=== PATIENT | female | born 1980 | race African-American/Black ===

== ENCOUNTER 2020-04-05 11:04 | Emergency (ER) | payer BC, SELFPAY ==
--- NOTE | ~2020-04-05 | CT_ITS ---
EXAMINATION: CT abdomen pelvis w con DATE: 04/05/2020 13:48 INDICATION: Nausea, vomiting and constipation TECHNIQUE: Computed tomography (CT) of the abdomen and pelvis was performed with 100 mL Omnipaque-350 intravenous contrast. Automated exposure control and iterative reconstruction technique were employe d. The dose-length product was 336.22 mGy-cm. COMPARISON: None FINDINGS: Lung bases are clear. Heart size is normal. No pericardial or pleural effusion. Edematous wall thicke belen the distal esophagus which may be related to esophagitis given the provided history of nausea an d vomiting. Liver, gallbladder, spleen, pancreas, bilateral adrenal glands and kidneys are normal. Ascencion wels including the appendix are normal. Anteverted uterus and decompressed bladder are unremarkable. Prominent peripheral enhancement a partially decompressed 1.9 cm corpus luteum cyst at the left adnex a. Minimal likely physiologic free fluid in the pelvis. No pathologically enlarged abdominal or pelvi c lymphadenopathy. Bones are unremarkable. IMPRESSION: 1. Mild edematous wall thickening at the distal esophagus which could represent mild esophagitis rela sandra to given history of nausea and vomiting. 2. Partially collapsed corpus luteum cyst at the left adnexa with small amount of likely physiologic free fluid in the pelvis. Reviewed, dictated and finalized at location B. [employer] IMPRESSION: 1. Mild edematous wall thickening at the distal esophagus which could represent mild esophagitis related to given history of nausea and vomiting. 2. Partially collapsed corpus luteum cyst at the left adnexa with small amount of likely physiologic free fluid in the pelvis.
[2020-04-05 11:37] VITALS: BP 121/91; PULSE 120; RESP 18; TEMP 37.1; O2SAT 100
[2020-04-05 11:55] LABS: Basophils Absolute Auto 0.1 K/mm3 (0.0-0.1); Basophils Percent Auto 0.9 % (0.2-1.2); Eosinophils Absolute Auto 0.5 K/mm3 (0-0.3); Eosinophils Percent Auto 4.8 % (0-4.4); Hemoglobin 15.3 g/dL (12.0-15.0); Immature Granulocyte Absolute 0.03 K/mm3 (0.00-0.031); Immature Granulocyte Percent A 0.3 % (0-0.5); Lymphocytes Absolute Auto 3.56 K/mm3 (0.9-3.2); Mean Corpuscular HGB Conc 35.6 g/dl (32-36); Mean Corpuscular Hemoglobin 27.5 pg (26-34); Mean Corpuscular Volume 77.3 fl (80-100); Mean Platelet Volume 10.2 fl (7.4-10.4); Monocytes Absolute Auto 0.7 K/mm3 (0.1-0.6); Monocytes Percent Auto 6.6 % (2.6-8.5); Neutrophils Absolute Auto 5.6 K/mm3 (1.3-6.7); Neutrophils Percent Auto 53.4 % (45.5-73.1); Platelet Count Result 337 k/mm3 (150-375); Red Blood Count 5.56 M/mm3 (4.2-5.4); Red Cell Distribution Width 14.4 % (11.5-14.5); White Blood Count 10.5 K/mm3 (4.5-10.0)
[2020-04-05 12:02] LABS: Alanine Aminotransferase 21 U/L (4-35); Albumin Level 4.7 g/dL (3.5-5.1); Alkaline Phosphatase 84 U/L (38-126); Anion Gap 12 mmol/L (8-16); Aspartate Amino Transferase 26 U/L (14-36); Bilirubin,Total 1.3 mg/dL (0.2-1.3); Blood Urea Nitrogen 12 mg/dL (7-17); Calcium 9.3 mg/dL (8.4-10.2); Carbon Dioxide 27 mmol/L (22-30); Chloride 92 mmol/L (98-107); Estimated CRCL calculation 78 ml/min; Estimated Glomerular Filt Rate > 60; Glucose 302 mg/dL (65-105); Lipase 49 U/L (23-300); Potassium 3.9 mmol/L (3.4-5.0); Sodium 131 mmol/L (137-145)
[2020-04-05 12:12] LABS: Add Urine Microscopic? YES; Appearance Urine Cloudy (Clear); Bacteria Urine Trace /hpf; Bilirubin Urine Negative (Negative); Blood Urine Negative (Negative); Color Urine Yellow (Yellow); Glucose Urine UA 2+ mg/dL (Negative); Ketones Urine 2+ mg/dL (Negative); Leukocyte Esterase Ur Negative LEU/UL (Negative); Mucus Urine Few /lpf; Nitrate Urine Positive (Negative); Protein Urine 2+ mg/dL (Negative); RBC Urine 0-2 /hpf (0-2); Specific Grav Ur 1.027 (1.001-1.035); Squamous Epithelial Cell Urine Moderate /hpf (Few); Urobilinogen Urine Negative mg/dL (<2.0)
--- NOTE | 2020-04-05 13:24 | ED.NAVMDI ---
HPI - Nausea/Vomiting/Diarrhea General Chief complaint: Nausea/Vomiting/Diarrhea Stated complaint: n/v, abd pain 7 days Time Seen by Provider: 04/05/20 12:49 Source: patient Mode of arrival: ambulatory Limitations: no limitations History of Present Illness HPI Narrative: This is a 39-year-old female that presents the emergency department for nausea and vomiting x1 week. Associated with constipation. Reports she has not been able to keep anything down. Denies fever, diarrhea, dysuria, or hematuria. Related Data Home Medications Medication Instructions Recorded Confirmed glipizide 10 mg PO BID 04/05/20 04/05/20 Allergies Allergy/AdvReac Type Severity Reaction Status Date / Time No Known Allergies Allergy Verified 04/05/20 11:39 Review of Systems Review of Systems: Narrative: CONSTITUTIONAL: Denies fever GASTROINTESTINAL: Reports abdominal pain, nausea, vomiting. Denies diarrhea. GENITOURINARY: Denies dysuria or hematuria. All systems reviewed & are unremarkable except as noted in HPI and below PMFSH Past Medical History Medical History (Updated 04/05/20 @ 16:01 by Radha Li PA-C) History of diabetes mellitus Social History Social History (Updated 04/05/20 @ 13:25 by Radha Li PA-C) Substance use: never Gender identity (if verbalized by the patient): Female Exam Narrative: Exam Narrative: GENERAL: Well-appearing, well-nourished, and in no acute distress. HEAD: Normocephalic, atraumatic. EYES: EOMI. ENT: Mucous membranes moist. Oropharynx without tonsillar hypertrophy exudate or other lesions. CHEST: Clear to auscultation. No respiratory distress. No wheezes rales or rhonchi HEART: Regular rate and rhythm. No murmur heard. Normal peripheral pulses. ABDOMEN: Soft, nontender, nondistended, normal active bowel sounds. No CVA tenderness EXTREMITIES: Normal range of motion. No edema. SKIN: Warm, dry, no rash. NEURO: No focal deficits. Alert and oriented x3. PSYCH: Normal mood and affect Course Vital Signs Vital signs: Vital Signs Temperature 98.7 F 04/05/20 11:37 Pulse Rate 120 H 04/05/20 11:37 Respiratory Rate 18 04/05/20 11:37 Blood Pressure 121/91 H 04/05/20 11:37 Pulse Oximetry 100 04/05/20 11:37 Temperature 98.7 F 04/05/20 11:37 Pulse Rate 120 H 04/05/20 11:37 Respiratory Rate 18 04/05/20 11:37 Blood Pressure 121/91 H 04/05/20 11:37 Pulse Oximetry 100 04/05/20 11:37 MDM - Nausea/Vomiting/Diarrhea MDM Narrative Medical decision making narrative: Patient presents the emergency department for nausea and vomiting x1 week. She is afebrile and nontoxic-appearing. Mildly tachycardic upon arrival, this normalized with IV fluid administration. CBC shows mild hemoconcentration. Metabolic panel with normal bicarb and no anion gap. Her blood sugar is 302. Lipase is normal. UA with evidence of possible infection. This will be sent for culture. Patient will be started on oral antibiotics. Bedside test is negative. CT scan of the abdomen and pelvis shows mild esophagitis and a 1.9cm left adnexal cyst. Patient hydrated in the ED and given antiemetic with relief. Able to tolerate p.o. challenge. Patient was updated on case findings. She is stable and felt appropriate for further outpatient evaluation. She was given warnings to return to the ER Lab Data Attestation: I reviewed the patient's lab results. Result diagrams: 04/05/20 11:45 04/05/20 11:45 Labs: Lab Results 04/05/20 04/05/20 04/05/20 Range/Units 11:45 11:45 11:54 WBC 10.5 H (4.5-10.0) K/mm3 RBC 5.56 H (4.2-5.4) M/mm3 Hgb 15.3 H (12.0-15.0) g/dL Hct 43.0 (37.0-47.0) % MCV 77.3 L (80-100) fl MCH 27.5 (26-34) pg MCHC 35.6 (32-36) g/dl RDW 14.4 (11.5-14.5) % Plt Count 337 (150-375) k/mm3 MPV 10.2 (7.4-10.4) fl Immature Gran % (Auto) 0.3 (0-0.5) % Neut % (Auto) 53.4 (45.5-73.1) % Lymph
[2020-04-05] MEDS: ONDANSETRON INJ 4 MG/2 ML VIAL IV PUSH (13:57)
[2020-04-05] MEDS: SODIUM CHLORIDE 0.9% IV 1,000 ML 999 ML IV CONT ×2 (13:58→14:47)
[2020-04-05 16:19] VITALS: BP 128/82; PULSE 90; RESP 12; O2SAT 99
== END 2020-04-05 16:15 | disposition home or self-care (01) ==
PROVIDERS: Emergency Medicine; Emergency Provider Emergency Medicine
DX: N30.00 Acute cystitis without hematuria (principal); K20.90 Esophagitis, unspecified without bleeding; E11.9 Type 2 diabetes mellitus without complications; Z79.84 Long term (current) use of oral hypoglycemic drugs
CPT/HCPCS: 36415; 74177; 80053; 81001; 81025; 83690; 85025; 87086; 96374; 99284; J2405; J7030; Q9967

== ENCOUNTER 2021-05-07 13:27 | Emergency (ER) | payer BC, SELFPAY ==
[2021-05-07 13:40] VITALS: BP 108/82; PULSE 130; RESP 20; TEMP 36.2; O2SAT 100
--- NOTE | 2021-05-07 14:21 | PC.NURSE ---
Called lab about Urine HCG. they will do it down there as the test ran in ER was defective
[2021-05-07 14:22] LABS: Basophils Absolute Auto 0.1 K/mm3 (0.0-0.1); Basophils Percent Auto 0.9 % (0.2-1.2); Eosinophils Absolute Auto 0.1 K/mm3 (0-0.3); Hematocrit 41.3 % (37.0-47.0); Hemoglobin 14.6 g/dL (12.0-15.0); Immature Granulocyte Absolute 0.04 K/mm3 (0.00-0.031); Immature Granulocyte Percent A 0.5 % (0-0.5); Lymphocytes Absolute Auto 2.96 K/mm3 (0.9-3.2); Lymphocytes Percent Auto 34.3 % (18.3-44.2); Mean Corpuscular HGB Conc 35.4 g/dl (32-36); Mean Corpuscular Hemoglobin 27.7 pg (26-34); Mean Corpuscular Volume 78.4 fl (80-100); Mean Platelet Volume 10.2 fl (7.4-10.4); Monocytes Absolute Auto 0.8 K/mm3 (0.1-0.6); Monocytes Percent Auto 9.5 % (2.6-8.5); Neutrophils Absolute Auto 4.6 K/mm3 (1.3-6.7); Neutrophils Percent Auto 53.8 % (45.5-73.1); Platelet Count Result 385 k/mm3 (150-375); Red Blood Count 5.27 M/mm3 (4.2-5.4); Red Cell Distribution Width 14.3 % (11.5-14.5); White Blood Count 8.6 K/mm3 (4.5-10.0)
[2021-05-07 14:33] LABS: Add Urine Microscopic? YES; Alanine Aminotransferase 19 U/L (4-35); Albumin Level 4.9 g/dL (3.5-5.1); Alkaline Phosphatase 82 U/L (38-126); Anion Gap 15 mmol/L (8-16); Appearance Urine Clear (Clear); Aspartate Amino Transferase 23 U/L (14-36); Bacteria Urine Trace /hpf; Bilirubin Urine Negative (Negative); Blood Urea Nitrogen 17 mg/dL (7-17); Blood Urine Negative (Negative); Calcium 9.2 mg/dL (8.4-10.2); Carbon Dioxide 28 mmol/L (22-30); Chloride 86 mmol/L (98-107); Color Urine Yellow (Yellow); Estimated CRCL calculation 78 ml/min; Estimated Glomerular Filt Rate > 60; Glucose 309 mg/dL (65-110); Glucose Urine UA 3+ mg/dL (Negative); Ketones Urine 2+ mg/dL (Negative); Leukocyte Esterase Ur Trace LEU/UL (Negative); Lipase 51 U/L (23-300); Mucus Urine Few /lpf; Nitrate Urine Negative (Negative); Potassium 3.7 mmol/L (3.4-5.0); Protein Urine 1+ mg/dL (Negative); Sodium 129 mmol/L (137-145); Specific Grav Ur 1.026 (1.001-1.035); Squamous Epithelial Cell Urine Few /hpf (Few); Urobilinogen Urine Negative mg/dL (<2.0); WBC Urine 51-75 /hpf
--- NOTE | 2021-05-07 14:45 | ED.NAVMDI ---
HPI - Nausea/Vomiting/Diarrhea General Chief complaint: Nausea/Vomiting/Diarrhea Stated complaint: n/v Time Seen by Provider: 05/07/21 14:34 History of Present Illness HPI Narrative: 40-year-old female with history of gastroparesis and type 2 diabetes presents to the emergency room with 1 week of vomiting. Denies abdominal pain diarrhea constipation. Unable to keep fluids down. Patient states that she has not taken her diabetes medications in 1 week. Patient also concerned she may have a urinary tract infection. Related Data Home Medications Medication Instructions Recorded Confirmed glipizide 10 mg PO BID 04/05/20 04/05/20 Allergies Allergy/AdvReac Type Severity Reaction Status Date / Time No Known Allergies Allergy Verified 04/05/20 11:39 Review of Systems Review of Systems: CONSTITUTIONAL: Denies fever, chills, or sweats. EYES: Denies visual changes, redness, or discharge. ENT: Denies rhinorrhea, congestion, sore throat, or otalgia. CARDIOVASCULAR: Denies chest pain, palpitations, or edema. RESPIRATORY: Denies cough or dyspnea. GASTROINTESTINAL: Reports vomiting GENITOURINARY: Denies dysuria or hematuria. SKIN: Denies rash or itching. MUSCULOSKELETAL: Denies back pain, joint pain, or myalgia. NEUROLOGIC: Denies headache, numbness, dizziness, or weakness. PSYCHIATRIC: Denies anxiety or depression. [facility] Past Medical History Medical History History of diabetes mellitus Social History Social History Substance use: never Gender identity (if verbalized by the patient): Female Exam Narrative: GENERAL: Appears ill. HEAD: Normocephalic, atraumatic. EYES: PERRLA and EOMI. ENT: Nares clear, no rhinorrhea or epistaxis. Mucous membranes dry. NECK: Supple. No adenopathy or masses. No carotid bruits or JVD CHEST: Clear to auscultation. No respiratory distress. No wheezes rales or rhonchi HEART: Regular rate and rhythm. No murmur heard. Normal peripheral pulses. ABDOMEN: Soft, nontender, nondistended, normal active bowel sounds. EXTREMITIES: Normal range of motion. No edema. SKIN: Warm, dry, no rash. NEURO: No focal deficits. Alert and oriented x3. PSYCH: Normal mood and affect. Course Vital Signs Vital signs: Vital Signs Temperature 36.2 C L 05/07/21 13:40 Pulse Rate 130 H 05/07/21 13:40 Respiratory Rate 20 05/07/21 13:40 Blood Pressure 108/82 05/07/21 13:40 Pulse Oximetry 100 05/07/21 13:40 Temperature 36.2 C L 05/07/21 13:40 Pulse Rate 141 H 05/07/21 15:10 Respiratory Rate 20 05/07/21 13:40 Blood Pressure 102/74 05/07/21 15:10 Pulse Oximetry 100 05/07/21 13:40 MDM - Nausea/Vomiting/Diarrhea MDM Narrative Medical decision making narrative: 40-year-old female presents emergency room with gastroparesis and dysuria. Patient given 2 L of fluid and 4 of Zofran for dehydration and nausea. Blood sugar was 309, gave patient 6 units of insulin. 1 hour later blood sugar was 251. Hyponatremia likely due to dehydration. Bacteria in urine. Give 1 g of Rocephin IV. Will send patient home on Zofran for nausea, and Keflex for urinary tract infection. Medical Records Attestation: I reviewed the patient's medical records. Lab Data Attestation: I reviewed the patient's lab results. Result diagrams: 05/07/21 14:09 05/07/21 14:09 Labs: Lab Results 05/07/21 05/07/21 05/07/21 Range/Units 14:09 14:09 14:09 WBC 8.6 (4.5-10.0) K/mm3 RBC 5.27 (4.2-5.4) M/mm3 Hgb 14.6 (12.0-15.0) g/dL Hct 41.3 (37.0-47.0) % MCV 78.4 L (80-100) fl MCH 27.7 (26-34) pg MCHC 35.4 (32-36) g/dl RDW 14.3 (11.5-14.5) % Plt Count 385 H (150-375) k/mm3 MPV 10.2 (7.4-10.4) fl Immature Gran % (Auto) 0.5 (0-0.5) % Neut % (Auto) 53.8 (45.5-73.1) % Lymph % (Auto) 34.3 (18.3-44.2) % [place] % (Auto) 9.5
[2021-05-07 15:00] VITALS: BP 130/100; PULSE 118
[2021-05-07 15:05] VITALS: BP 114/85; PULSE 124
[2021-05-07 15:10] VITALS: BP 102/74; PULSE 141
[2021-05-07 15:29] LABS: Pregnancy On Board Control Positive; Urine Pregnancy Test Negative
[2021-05-07] MEDS: ONDANSETRON INJ 4 MG/2 ML VIAL IV PUSH (15:31)
[2021-05-07] MEDS: SODIUM CHLORIDE 0.9% IV 1,000 ML 999 ML IV CONT ×2 (15:31→17:25)
[2021-05-07] MEDS: INSULIN HUMAN REGULAR (*BKC) 100 UNITS/ML 6 UNITS SUB-Q (16:52)
[2021-05-07 17:23] LABS: Glucose Point of Care 278 mg/dl (65-105)
[2021-05-07 17:59] LABS: Glucose Point of Care 258 mg/dl (65-105)
[2021-05-07 18:28] VITALS: BP 110/82; PULSE 104; RESP 16; TEMP 36.4; O2SAT 98
== END 2021-05-07 18:28 | disposition home or self-care (01) ==
PROVIDERS: Emergency Medicine; Emergency Provider Nurse Practitioner Family
DX: E11.43 Type 2 diabetes mellitus with diabetic autonomic (poly)neuropathy (principal); K31.84 Gastroparesis; E11.65 Type 2 diabetes mellitus with hyperglycemia; N39.0 Urinary tract infection, site not specified; Z79.84 Long term (current) use of oral hypoglycemic drugs
CPT/HCPCS: 36415; 80053; 81001; 81025; 82948; 83690; 85025; 87086; 87088; 96361; 96365; 96375; 99284; J0696; J1815; J2405; J7030

== ENCOUNTER 2021-08-17 09:54 | Emergency (ER) | payer BC, SELFPAY ==
[2021-08-17] VITALS (10 sets, daily range): BP systolic 137–169; BP diastolic 79–111; PULSE 103–124; RESP 14–18; TEMP 36.8; O2SAT 98–100
--- NOTE | ~2021-08-17 | XR_ITS ---
EXAMINATION: XR abdomen/kub 1V DATE: 08/17/2021 14:17 INDICATION: Vomiting. TECHNIQUE: A supine view of the abdomen on 2 radiographs was obtained. COMPARISON: CT abdomen and pelvis 04/05/2020 FINDINGS: There are no dilated loops of bowel. There is a paucity of stool in the colon. IMPRESSION: 1. Normal bowel gas pattern. Reviewed, dictated and finalized at location A.
[2021-08-17 10:19] LABS: Appearance Urine Clear (Clear); Bilirubin Urine Negative (Negative); Blood Urine Negative (Negative); Color Urine Yellow (Yellow); Glucose Urine UA Negative (Negative); Ketones Urine Negative (Negative); Leukocyte Esterase Ur Trace LEU/UL (Negative); Nitrate Urine Negative (Negative); Protein Urine 1+ mg/dL (Negative); Specific Grav Ur 1.015 (1.001-1.035); Urobilinogen Urine 0.2 mg/dL (<2.0); pH Urine 7.5 (5.0-9.0)
--- NOTE | 2021-08-17 10:23 | ED.NAVMDI ---
HPI - Nausea/Vomiting/Diarrhea General Chief complaint: Urogenital-Female Stated complaint: Nausea, UTI? Time Seen by Provider: 08/17/21 10:03 Source: patient Mode of arrival: ambulatory Limitations: no limitations History of Present Illness HPI Narrative: 40-year-old female presents today with complaints of nausea and dark urine. Patient was just discharged from [facility] yesterday. Patient has a history of gastroparesis. Patient was admitted to [facility] on Friday and discharged yesterday states when she was discharged was feeling better. Patient sent home on a liquid diet. Patient tolerating liquid diet until this morning. Patient denies dysuria, back pain, or urgency. Patient did take her Reglan at home 10 mg this morning without relief of the nausea. Patient denies any drug usage including marijuana, denies alcohol usage, and denies cigarette smoking. Related Data Home Medications Medication Instructions Recorded Confirmed glipizide 10 mg tablet 10 mg PO BID 04/05/20 04/05/20 Reglan 08/17/21 Allergies Allergy/AdvReac Type Severity Reaction Status Date / Time sulfamethoxazole Allergy Rash Verified 08/17/21 10:34 [From Bactrim] trimethoprim [From Bactrim] Allergy Rash Verified 08/17/21 10:34 Review of Systems Review of Systems: CONSTITUTIONAL: Chills and sweats. Denies fever. EYES: Denies visual changes, redness, or discharge. ENT: Denies rhinorrhea, congestion, sore throat, or otalgia. CARDIOVASCULAR: Denies chest pain, palpitations, or edema. RESPIRATORY: Denies cough or dyspnea. GASTROINTESTINAL: Denies abdominal pain, nausea, vomiting, or diarrhea. GENITOURINARY: Dark urine. Denies dysuria or hematuria. SKIN: Denies rash or itching. MUSCULOSKELETAL: Denies back pain, joint pain, or myalgia. NEUROLOGIC: Denies headache, numbness, dizziness, or weakness. PSYCHIATRIC: Denies anxiety or depression. PMFSH Past Medical History Medical History History of diabetes mellitus Social History Social History Substance use: never Gender identity (if verbalized by the patient): Female Exam Narrative: GENERAL: Well-appearing, well-nourished, and in no acute distress. HEAD: Normocephalic, atraumatic. EYES: PERRLA and EOMI. ENT: Nares clear, no rhinorrhea or epistaxis. Mucous membranes moist. Oropharynx without tonsillar hypertrophy exudate or other lesions. Bilateral TMs pearly brown nonbulging NECK: Supple. No adenopathy or masses. No carotid bruits or JVD CHEST: Clear to auscultation. No respiratory distress. No wheezes rales or rhonchi HEART: Regular rate and rhythm. No murmur heard. Normal peripheral pulses. ABDOMEN: Soft, nontender, nondistended, normal active bowel sounds. EXTREMITIES: Normal range of motion. No edema. SKIN: Warm, dry, no rash. NEURO: No focal deficits. Alert and oriented x3. PSYCH: Normal mood and affect. Course Course Emergency Course: Reviewed labs with patient. Patient to to stay away from all forms of THC. Instructed to use Reglan as needed and to return with any new or worsening symptoms. Reevaluation(s) Reevaluation #1: Patient felling better but still with some nausea Date: 08/17/21 Time: 11:11 Reevaluation #2: Patient with improvement after second dose of Zofran, Benadryl, and dose of Haldol, and second IV fluid. Patient tolerating liquids and able to be discharged. Vital Signs Vital signs: Vital Signs Temperature 36.8 C 08/17/21 10:17 Pulse Rate 124 H 08/17/21 10:17 Respiratory Rate 16 08/17/21 10:17 Blood Pressure 150/107 H 08/17/21 10:17 Pulse Oximetry 100 08/17/21 10:17 Oxygen Delivery Room Air 08/17/21 10:17 Temperature 36.8 C 08/17/21 10:17 Pulse Rate 103 H 08/17/21 16:02 Respiratory Rate 18 08/17/21 16:02 Blood Pressure 143/93 H 08/17/21 16:02 Pulse Oximetry 100 08/17/21 16:02 Oxygen Delivery Room
[2021-08-17] MEDS: SODIUM CHLORIDE 0.9% IV 1,000 ML 999 ML IV CONT ×2 (10:36→14:10)
[2021-08-17] MEDS: METOCLOPRAMIDE HCL INJ 10 MG/2 ML VIAL IV PUSH (10:37)
[2021-08-17 10:40] LABS: Mucus Urine Rare /lpf; RBC Urine 0-2 /hpf (0-2); Squamous Epithelial Cell Urine Rare /hpf (Few); WBC Urine 0-3 /hpf
[2021-08-17 10:45] LABS: Basophils Absolute Auto 0.1 K/mm3 (0.0-0.1); Basophils Percent Auto 0.6 % (0.2-1.2); Eosinophils Percent Auto 0.1 % (0-4.4); Hematocrit 36.7 % (37.0-47.0); Hemoglobin 12.7 g/dL (12.0-15.0); Immature Granulocyte Absolute 0.03 K/mm3 (0.00-0.031); Immature Granulocyte Percent A 0.3 % (0-0.5); Lymphocytes Absolute Auto 1.91 K/mm3 (0.9-3.2); Lymphocytes Percent Auto 21.2 % (18.3-44.2); Mean Corpuscular HGB Conc 34.6 g/dl (32-36); Mean Corpuscular Hemoglobin 27.1 pg (26-34); Mean Corpuscular Volume 78.4 fl (80-100); Mean Platelet Volume 9.5 fl (7.4-10.4); Monocytes Absolute Auto 0.5 K/mm3 (0.1-0.6); Monocytes Percent Auto 5.8 % (2.6-8.5); Neutrophils Absolute Auto 6.5 K/mm3 (1.3-6.7); Platelet Count Result 432 k/mm3 (150-375); Red Blood Count 4.68 M/mm3 (4.2-5.4); Red Cell Distribution Width 16.2 % (11.5-14.5)
[2021-08-17 10:54] LABS: Pregnancy On Board Control Positive; Urine Pregnancy Test Negative
[2021-08-17 11:00] LABS: Alanine Aminotransferase 24 U/L (6-35); Albumin Level 5.1 g/dL (3.5-5.1); Anion Gap 15 mmol/L (8-16); Aspartate Amino Transferase 32 U/L (14-36); Bilirubin,Total 1.1 mg/dL (0.2-1.3); Blood Urea Nitrogen 12 mg/dL (7-17); Calcium 8.5 mg/dL (8.4-10.2); Carbon Dioxide 19 mmol/L (22-30); Chloride 101 mmol/L (98-107); Estimated CRCL calculation 90 ml/min; Estimated Glomerular Filt Rate > 60; Glucose 243 mg/dL (65-110); Potassium 3.6 mmol/L (3.4-5.0); Sodium 135 mmol/L (137-145)
[2021-08-17 11:11] LABS: Add Urine Microscopic? YES
[2021-08-17 11:15] LABS: Alkaline Phosphatase 74 U/L (38-126)
[2021-08-17] MEDS: ONDANSETRON INJ 4 MG/2 ML VIAL IV PUSH ×2 (11:21→14:10)
[2021-08-17 12:17] LABS: SARS-CoV-2 RNA PCR Negative
[2021-08-17] MEDS: diphenhydrAMINE HCl INJ 50 MG/ML VIAL 25 MG IV PUSH (14:10)
[2021-08-17] MEDS: PANTOPRAZOLE SODIUM IV 40 MG VIAL IV PUSH (14:10)
--- NOTE | 2021-08-17 14:13 | PC.NURSE ---
pt taken to x ray at this time
--- NOTE | 2021-08-17 14:41 | PC.NURSE ---
[facility]
[2021-08-17 15:04] LABS: Amphetamine Screen Urine Negative (Negative); Barbiturate Screen Urine Negative (Negative); Benzodiazepines Screen Urine Negative (Negative); Cannabinoid Screen Urine Positive (Negative); Cocaine Screen Urine Negative (Negative); Methadone Screen Urine Negative (Negative); Opiate Screen Urine Negative (Negative); Phencyclidine Screen Urine Negative (Negative)
[2021-08-17] MEDS: HALOPERIDOL LACTATE 5 MG/ML VIAL 2.5 MG IV PUSH (15:26)
== END 2021-08-17 16:08 | disposition home or self-care (01) ==
PROVIDERS: Emergency Provider Nurse Practitioner Family
DX: R11.2 Nausea with vomiting, unspecified (principal); F12.90 Cannabis use, unspecified, uncomplicated; E11.43 Type 2 diabetes mellitus with diabetic autonomic (poly)neuropathy; K31.84 Gastroparesis; Z20.822 Contact with and (suspected) exposure to COVID-19; Z79.84 Long term (current) use of oral hypoglycemic drugs
CPT/HCPCS: 36415; 74018; 80053; 80307; 81001; 81025; 85025; 96361; 96374; 96375; 96376; 99284; C9113; C9803; J1200; J1630; J2405; J2765; J7030; U0003; U0005

== ENCOUNTER 2022-02-04 17:08 | Emergency (ER) | payer BC, SELFPAY ==
[2022-02-04 17:43] VITALS: BP 126/95; PULSE 128; RESP 18; TEMP 36.6; O2SAT 100
[2022-02-04 18:20] LABS: Basophils Absolute Auto 0.1 K/mm3 (0.0-0.1); Basophils Percent Auto 0.6 % (0.2-1.2); Eosinophils Percent Auto 0.2 % (0-4.4); Hematocrit 40.7 % (37.0-47.0); Hemoglobin 14.4 g/dL (12.0-15.0); Immature Granulocyte Absolute 0.02 K/mm3 (0.00-0.031); Immature Granulocyte Percent A 0.2 % (0-0.5); Lymphocytes Absolute Auto 3.01 K/mm3 (0.9-3.2); Lymphocytes Percent Auto 28.8 % (18.3-44.2); Mean Corpuscular HGB Conc 35.4 g/dl (32-36); Mean Corpuscular Hemoglobin 27.1 pg (26-34); Mean Corpuscular Volume 76.5 fl (80-100); Mean Platelet Volume 9.7 fl (7.4-10.4); Monocytes Absolute Auto 0.6 K/mm3 (0.1-0.6); Monocytes Percent Auto 5.8 % (2.6-8.5); Neutrophils Absolute Auto 6.7 K/mm3 (1.3-6.7); Neutrophils Percent Auto 64.4 % (45.5-73.1); Platelet Count Result 431 k/mm3 (150-375); Red Blood Count 5.32 M/mm3 (4.2-5.4); Red Cell Distribution Width 15.1 % (11.5-14.5); White Blood Count 10.5 K/mm3 (4.5-10.0)
[2022-02-04 18:28] LABS: Appearance Urine Clear (Clear); Bilirubin Urine 1+ (Negative); Blood Urine Trace-lysed (Negative); Color Urine Yellow (Yellow); Glucose Urine UA Trace mg/dL (Negative); Ketones Urine 4+ mg/dL (Negative); Leukocyte Esterase Ur Negative LEU/UL (Negative); Nitrate Urine Negative (Negative); Protein Urine 2+ mg/dL (Negative); Specific Grav Ur >= 1.030 (1.001-1.035); Urobilinogen Urine 0.2 mg/dL (<2.0)
[2022-02-04 18:29] LABS: Alanine Aminotransferase 33 U/L (6-35); Albumin Level 5.2 g/dL (3.5-5.1); Alkaline Phosphatase 88 U/L (38-126); Anion Gap 19 mmol/L (8-16); Aspartate Amino Transferase 38 U/L (14-36); Bilirubin,Total 1.1 mg/dL (0.2-1.3); Blood Urea Nitrogen 13 mg/dL (7-17); Calcium 8.9 mg/dL (8.4-10.2); Carbon Dioxide 23 mmol/L (22-30); Chloride 93 mmol/L (98-107); Estimated CRCL calculation 90 ml/min; Estimated Glomerular Filt Rate > 60; Glucose 319 mg/dL (65-110); Lipase 37 U/L (23-300); Potassium 4.1 mmol/L (3.4-5.0); Sodium 135 mmol/L (137-145)
[2022-02-04 18:31] LABS: Mucus Urine Rare /lpf; RBC Urine 0-2 /hpf (0-2); Squamous Epithelial Cell Urine Rare /hpf (Few); WBC Urine 0-3 /hpf
[2022-02-04 18:33] LABS: Add Urine Microscopic? YES
--- NOTE | 2022-02-04 23:29 | ED.NAVMDI ---
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 Patient states that she normally takes Reglan for vomiting but is currently out of her prescription. Patient was unable to follow-up with her PCP to get the Reglan refilled. Patient denies abdominal pain. Denies fever. Denies diarrhea. Related Data Home Medications Medication Instructions Recorded Confirmed glipizide 10 mg tablet 10 mg PO BID 04/05/20 04/05/20 Reglan 08/17/21 Allergies Allergy/AdvReac Type Severity Reaction Status Date / Time sulfamethoxazole Allergy Rash Verified 02/04/22 17:45 [From Bactrim] trimethoprim [From Bactrim] Allergy Rash Verified 02/04/22 17:45 Review of Systems Review of Systems: CONSTITUTIONAL: Denies fever, chills, or sweats. EYES: Denies visual changes, redness, or discharge. ENT: Denies rhinorrhea, congestion, sore throat, or otalgia. CARDIOVASCULAR: Denies chest pain, palpitations, or edema. RESPIRATORY: Denies cough or dyspnea. GASTROINTESTINAL: Reports nausea vomiting GENITOURINARY: Denies dysuria or hematuria. SKIN: Denies rash or itching. MUSCULOSKELETAL: Denies back pain, joint pain, or myalgia. NEUROLOGIC: Denies headache, numbness, dizziness, or weakness. PSYCHIATRIC: Denies anxiety or depression. [facility] Past Medical History Medical History History of diabetes mellitus Social History Social History Substance use: never Gender identity (if verbalized by the patient): Female Exam Narrative: GENERAL: ill-appearing, well-nourished, no physical limitations, and in no acute distress. HEAD: Normocephalic, atraumatic. EYES: Conjunctivae normal, PERRLA and EOMI. ENT: External nose normal, Nares clear, no rhinorrhea or epistaxis. Mucous membranes dry. HEART: Tachycardic and regular rhythm. No murmur heard. Normal peripheral pulses. ABDOMEN: Soft, nontender, nondistended, normal active bowel sounds. BACK: No CVA tenderness EXTREMITIES: Normal range of motion. No edema. No clubbing or cyanosis SKIN: Warm, dry, no rash. No noted wounds NEURO: No focal deficits. Alert and oriented x3. MAEW. CN's II-XI intact bilaterally, normal gait PSYCH: Cooperative. Normal mood and affect. Course Vital Signs Vital signs: Vital Signs Temperature 36.6 C 02/04/22 17:43 Pulse Rate 128 H 02/04/22 17:43 Respiratory Rate 18 02/04/22 17:43 Blood Pressure 126/95 H 02/04/22 17:43 Pulse Oximetry 100 02/04/22 17:43 Temperature 36.6 C 02/04/22 17:43 Pulse Rate 115 H 02/05/22 00:43 Respiratory Rate 18 02/04/22 17:43 Blood Pressure 116/104 H 02/05/22 00:43 Pulse Oximetry 100 02/04/22 17:43 MDM - Nausea/Vomiting/Diarrhea Lab Data Result diagrams: 02/04/22 18:11 02/05/22 01:56 Labs: Lab Results 02/04/22 02/04/22 02/04/22 Range/Units 18:11 18:11 18:17 WBC 10.5 H (4.5-10.0) K/mm3 RBC 5.32 (4.2-5.4) M/mm3 Hgb 14.4 (12.0-15.0) g/dL Hct 40.7 (37.0-47.0) % MCV 76.5 L (80-100) fl MCH 27.1 (26-34) pg MCHC 35.4 (32-36) g/dl RDW 15.1 H (11.5-14.5) % Plt Count 431 H (150-375) k/mm3 MPV 9.7 (7.4-10.4) fl Immature Gran % (Auto) 0.2 (0-0.5) % Neut % (Auto) 64.4 (45.5-73.1) % Lymph % (Auto) 28.8 (18.3-44.2) % [place] % (Auto) 5.8 (2.6-8.5) % Eos % (Auto) 0.2 (0-4.4) % Baso % (Auto) 0.6 (0.2-1.2) % Lymph # (Auto) 3.01 (0.9-3.2) K/mm3 [place] # (Auto) 0.6 (0.1-0.6) K/mm3 Eos # (Auto) 0.0 (0-0.3) K/mm3 Baso # (Auto) 0.1 (0.0-0.1) K/mm3 Abs Immat Gran (auto) 0.02 (0.00-0.031) K/mm3 A
[2022-02-05] VITALS (21 sets, daily range): BP systolic 116–167; BP diastolic 100–111; PULSE 95–127; RESP 18; TEMP 36.2; O2SAT 95–100
[2022-02-05] MEDS: diphenhydrAMINE HCl INJ 50 MG/ML VIAL 25 MG IV PUSH (00:29)
[2022-02-05] MEDS: SODIUM CHLORIDE 0.9% IV 1,000 ML 999 ML IV CONT ×2 (00:30)
[2022-02-05 00:39] LABS: Barbiturate Screen Urine Negative (Negative); Benzodiazepines Screen Urine Negative (Negative)
[2022-02-05 00:47] LABS: Amphetamine Screen Urine Negative (Negative); Cannabinoid Screen Urine Positive (Negative); Opiate Screen Urine Negative (Negative); Phencyclidine Screen Urine Negative (Negative)
[2022-02-05] MEDS: METOCLOPRAMIDE HCL INJ 10 MG/2 ML VIAL IV PUSH (01:07)
[2022-02-05 01:28] LABS: Cocaine Screen Urine Negative (Negative); Methadone Screen Urine Negative (Negative)
[2022-02-05 02:16] LABS: Anion Gap 15 mmol/L (8-16); Blood Urea Nitrogen 14 mg/dL (7-17); Calcium 7.7 mg/dL (8.4-10.2); Carbon Dioxide 20 mmol/L (22-30); Chloride 99 mmol/L (98-107); Estimated CRCL calculation 90 ml/min; Estimated Glomerular Filt Rate > 60; Glucose 293 mg/dL (65-110); Potassium 3.7 mmol/L (3.4-5.0); Sodium 134 mmol/L (137-145)
--- NOTE | 2022-02-17 05:01 | PC.NURSE ---
Late Entry: NS 1000ml infused/completed on 02/05 at 0021hrs. NS 1000ml infused/completed on 02/05 at 0024hrs
== END 2022-02-05 02:49 | disposition home or self-care (01) ==
PROVIDERS: Family Medicine; Emergency Provider Nurse Practitioner Family
DX: R11.2 Nausea with vomiting, unspecified (principal); K31.84 Gastroparesis; F12.90 Cannabis use, unspecified, uncomplicated; E11.9 Type 2 diabetes mellitus without complications; Z79.84 Long term (current) use of oral hypoglycemic drugs
CPT/HCPCS: 36415; 80048; 80053; 80307; 81001; 81025; 83690; 85025; 96361; 96374; 96375; 99284; J1200; J2765; J7030

== ENCOUNTER 2024-04-30 11:02 | Emergency (ER) | payer BC, SELFPAY ==
[2024-04-30] VITALS (10 sets, daily range): BP systolic 116–135; BP diastolic 72–107; PULSE 93–115; RESP 13–18; TEMP 36.6–36.7; O2SAT 98–100
--- NOTE | ~2024-04-30 | CT_ITS ---
EXAMINATION: CT abdomen pelvis w con DATE: 04/30/2024 21:47 INDICATION: Low abdominal pain. Nausea, vomiting, and diarrhea. TECHNIQUE: Computed tomography (CT) of the abdomen and pelvis was performed with 100 mL Omnipaque 350 intravenous contrast. Automated exposure control and iterative reconstruction technique were employe d. The dose-length product was 679.48 mGy-cm. COMPARISON: CT abdomen and pelvis 04/05/2020 FINDINGS: The visualized portions of the lung bases demonstrate mild atelectasis. No pleural effusion . The heart size is normal. No pericardial effusion. The liver, spleen, pancreas, and adrenal glands are normal. The gallbladder is absent. There is cortical thinning of the kidneys. There is a 7 mm cys t in right kidney. There are 4.0 cm and 1.3 cm uterine fibroids. The appendix is normal. There are no dilated loops of bowel. There are no pathologically enlarged lymph nodes. There is no free intraperi toneal fluid. There is mild thoracic spondylosis. IMPRESSION: 1. Uterine fibroids. Reviewed, dictated and finalized at location A. ATIONS SUPERINTENDENT IMPRESSION: 1. Uterine fibroids.
--- OUTSIDE RECORDS SUMMARY | 2024-04-30 11:34 | XMS_ITS | Referral Summary ---
Author Organization [facility] Address [address] [place] [address] Care Team Providers Care Motor Vehicle Lecturer Name Role Phone Macy Contreras MD Primary Care Provider [phone] Source Comments [facility],non-owned Affiliates and Associated Physician Practices is amultiple site organization consisting of ambulatory clinics and hospital sitesin [place], [place], [place] and [place]. This disclosure is being madepursuant to the Care Everywhere program and may not contain all information available regarding this patient. Last updated 17.[facility] Allergies Active Allergy Reactions Criticality Noted Date Comments Sulfamethoxazole W-Trimethoprim Urticaria,Itching Medium 05/01/2016 Medications * Be aware that medications may not be up to date on this document. Alwaysverify current medications with the patient. Medication Sig Dispensed Refills Start Date End Date Status glipiZIDE (GLUCOTROL) 10 MG tablet Take 1 (one) tablet by mouth 2 times daily with morning and evening meal 05/21/2021 Active insulin glargine-yfgn (Semglee, yfgn,) pen Inject 20 (twenty) Units subcutaneously at bedtime 18 mL 2 12/02/2022 Active insulin pen needle (Novofine) 32G X 6 MM MISCIndications:Di abetic ketoacidosis without coma associated with type 1 diabetes mellitus (HCC),Type 2 diabetes mellitus with ketoacidosis without coma, without long-term current use of insulin (HCC) 1 (one) Each by Injection route once daily 100 Each 2 12/02/2022 Active Additional Information Patient not taking.Reported on 03/20/2023 Blood Glucose Monitoring Suppl (Blood Glucose Monitor System) w/Device KITIndications:Karolyn betic ketoacidosis without coma associated with type 1 diabetes mellitus (HCC),Type 2 diabetes mellitus with ketoacidosis without coma, without long-term current use of insulin (HCC) Use 1 Each as directed 1 Each 12/02/2022 Active lancetsIndications :Diabetic ketoacidosis without coma associated with type 1 diabetes mellitus (HCC),Type 2 diabetes mellitus with ketoacidosis without coma, without long-term current use of insulin (HCC) Use 1 (one) Each once daily 100 Each 3 12/02/2022 Active metoclopramide (Reglan) 10 MG tablet Take 1 (one) tablet by mouth 3 times daily before meals 90 tablet 12/02/2022 Active pantoprazole EC (Protonix) 40 MG tablet Take 1 (one) tablet by mouth once daily 30 tablet 03/20/2023 Active Active Problems Problem Noted Date Diagnosed Date 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 Nausea and vomiting, unspecified vomiting type 0 03/19/2023 Hyponatremia 11/28/2022 Tachycardia 11/28/2022 Diabetic ketoacidosis withou t coma associated with type 1 diabetes mellitus 11/28/2022 Chronic cholecystitis 09/13/2021 Biliary dyskinesia 09/05/2021 Nausea without vomiting 08/14/2021 Hyperglycemia 05/12/2020 Intractable vomiting 05/12/2020 Subserous leiomyoma of uterus 12/09/2019 Right ovarian without intrauterine pre gnancy 12/09/2019 Social History Tobacco Use Types Packs/Day Years Used Date Smoking Tobacco: Every Day Cigarettes Smokeless Tobacco: Never Tobacco Cessation:Ready to Q uit: Not Asked; Counseling Given: Not Answered Alcohol Use Standard Drinks/Week Comments No 0 (1 standard drink = 0.6 oz pur e alcohol) AUDIT-C Answer Date Recorded Q1: How often do you have a drink containing alc ohol? Never 08/15/2021 Average Number of Drinks Not on file 022 Frequency of Binge Drinking Not on file 10/2021 Hunger Vital Sign Answer Date Recorded Within the past 12 months, y ou worried that your food would run out before you got the money to buy more. Never true 08/17/19 22 Within the past 12 months, t he food you bought just didn't last and you didn't have money to get more. Never true 08/16/2021 Sex and Gender Information Value Date Recorded Sex Assigned at Not on file Gender Identity Not on file Sexual Orientation Not on file Last Filed Vital Signs Vital Sign Reading Time Taken Comments Blood Pressure 124/81 03/20/2023 7:31 AM [facility] Pulse 97 03/20/2023 7:31 AM [facility] Temperature 36.3 C (97.3 F) 03/20/2023 7:31 AM [facility] Respiratory Rate 18 03/20/2023 7:31 AM [facility] Oxygen Saturation 99% 03/20/2023 7:31 AM [facility] Inhaled Oxygen Concentration - - Weight 83.9 kg (185 lb) 03/20/2023 1:08 AM [facility] Height 160 cm (5' 3 ) 03/20/2023 1:08 AM [facility] Body Mass Index 32.77 03/20/2023 1:08 AM [facility]ELITE [facility]DER Functional Status Functional Status Response Date of Assess ment Is person deaf or have serious hearing difficult y? No 12/01/2022 Is person blind or have serious difficulty seein g? No 12/01/2022 Does person have serious dif ficulty walking/climbing stairs? No 12/01/2022 Does person have difficulty dressing/bathing? No 12/01/2022 Does person have difficulty doing errands alone? No 12/01/2022 Cognitive Status Response Date of Assessm ent Does person have difficulty concentrating/remembering/making decisions? 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) BASIC METABOLIC PANEL (CALCIUM TOTAL) STAT 03/20/2023 4:21 AM [facility] Nausea and vomiting, unspecified vomiting type MAMMO BILAT SCREENING W TRISTEN Routine 04/10/2021 9:23 AM [facility] Breast screening PAP IG LB+CT+NG+TV+HPV APTIMA RFLX 16,18/45 Routine 12/08/2019 4:03 PM CDT Positive test (HCC) from Last 3 Months or Most Recently Relevant to Health Maintenance Results * (ABNORMAL) HEMOGLOBIN A1C (03/20/2023 10:46 AM [facility]) Hemoglobin A1c 7.3(H) <5.7 % 03/20/2023 10:59 AM [facility] Estimated Average Glucose 163 mg/dL 03/20/2023 10:59 AM [facility] Blood BLOOD SPECIMEN / Unknown Venipuncture / Unknown 03/20/2023 10:46 AM [facility] 03/20/2023 10:49 AM [facility] Narrative [facility] - 03/20/2023 10:59 AM [facility] HbA1c Interpretation: Normal: < 5.7% Pre-diabetes: 5.7-6.4% Diabetes: Equal to or greater than 6.5% Test results diagnostic of diabetes should be repeated for confirmation. Treatment target values recommended by ADA and other clinical organizations should be used to evaluate metabolic control in patients. This test should not replace glucose testing for patients with Type 1 diabetes, pediatric patients, or women. Falsely low HbA1c results may be observed in patients with clinical conditions that shorten erythrocyte life span or decrease mean erythrocyte age such as the presence of unstable hemoglobin variants, elevated hemoglobin F level or other causes of hemolytic anemia. HbA1c may not accurately reflect glycemic control when clinical conditions that affect erythrocyte survival are present. Severe Iron deficiency anemia may yield falsely high results. Hemoglobin A1c assay should not be used to diagnose or monitor diabetes in patients with malignancy, recent blood transfusion, chronic kidney or liver disease. This method may yield falsely low results when hemoglobin (HbF) exceeds 5% in the specimen. The [employer]ellon Alinity assay for the measurement of HbA1c is a National Glycohemoglobin Standardization Program (NGSP) certified method. Kirby Fernández MD LAB - CHEMISTRY ORDERABLES [facility] [address] [place] [address] * (ABNORMAL) BASIC METABOLIC PANEL (CALCIUM TOTAL) (03/20/2023 4:21 AM [facility]) Glucose 208(H) 70 - 105 mg/dL 03/20/2023 4:57 AM [facility] Sodium 135(L) 136 - 145 mmol/L 03/20/2023 4:57 AM [facility] Potassium 3.5 3.5 - 5.1 mmol/L 03/20/2023 4:57 AM [facility] Chloride 106 98 - 107 mmol/L 03/20/2023 4:57 AM [facility] CO2 16(L) 22 - 29 mmol/L 03/20/2023 4:57 AM [facility] Calcium 8.3(L) 8.4 - 10.4 mg/dL 03/20/2023 4:57 AM [facility] Anion Gap 13 6 - 16 mmol/L 03/20/2023 4:57 AM [facility] BUN 8 5.3 - 18.7 mg/dL 03/20/2023 4:57 AM [facility] Creatinine 0.77 0.57 - 1.11 mg/dL 03/20/2023 4:57 AM [facility] eGFR by CKD-EPI >90 >=90 mL/min/1.7 3 m2 03/20/2023 4:57 AM [facility] Blood BLOOD SPECIMEN / Unknown Venipuncture / Unknown 03/20/2023 4:21 AM [facility] 03/20/2023 4:27 AM [facility] Rocio Rai MD [facility] Organization Address City/State/[facility] Co de Phone Number [facility] [address] [place] [address] * MAMMO BILAT SCREENING W TRISTEN (04/10/2021 9:23 AM [facility]) Anatomical Region Laterality Modality Breast Bilateral Mammography 04/10/2021 10:5 3 AM [facility] Impressions 04/10/2021 10:54 AM [facility] There is no mammographic evidence of malignancy. OVERALL FINAL ASSESSMENT: BI-RADS CATEGORY 1: NEGATIVE. Annual screening mammography is recommended. *Reading Radiologist: Mary Dougherty on 04/10/2021 at 10:54 AM Narrative 04/10/2021 10:54 AM [facility] EXAMINATION: BILATERAL DIGITAL SCREENING MAMMOGRAM AND BILATERAL BREAST TOMOSYNTHESIS HISTORY: Screening. COMPARISON: This is the patient's baseline mammogram. . TECHNIQUE: BILATERAL digital breast tomosynthesis (DBT) and synthetic 2D digital mammogram images were obtained (bilateral craniocaudal and mediolateral oblique projections) including computer aided detection (CAD.) BREAST PARENCHYMAL COMPOSITION:Category B: There are scattered areas of fibroglandular density. MAMMOGRAM FINDINGS: There are no suspicious masses, calcifications, or areas of architectural distortion in either breast. Jacklyn Galaviz DO MAMMO ORDERABLES * PAP IG LB+CT+NG+TV+HPV APTIMA RFLX 16,18/45 (12/08/2019 4:03 PM CDT) Diagnosis [facility] ACCOUNT BILL Comment: NEGATIVE FOR INTRAEPITHELIAL LESION OR MALIGNANCY. PREDOMINANCE OF COCCOBACILLI CONSISTENT WITH SHIFT IN VAGINAL KAROLINA IS PRESENT. Specimen Adequacy [facility] ACCOUNT BILL Comment:Satisfactory for myles luation. No endocervical component is identified. Clinician Provided ICD10 [facility] ACCOUNT BILL Comment: Z32.01 Z20.2 Performed by [facility] ACCOUNT BILL Comment:Ct Poon, Cytote chnologist (ASCP) Comment . [facility] ACCOUNT BILL Note [facility] ACCOUNT BILL Comment: The Pap smear is a screening test designed to aid in the detection of premalignant and malignant conditions of the uterine cervix. It is not a diagnostic procedure and should not be used as the sole means of detecting cervical cancer. Both false-positive and false-negative reports do occur. . IGLBP CPT Code Automation NOT NEEDED [facility] ACCOUNT BILL Comment: The Thin Prep(R) Production Control Planner was unable to read this specimen. Therefore a manual review was performed. Ancillary determined the test is not needed. Human papillomavirus Aptima Negative Negative [facility] ACCOUNT BILL Comment: This nucleic acid amplification test detects fourteen high-risk HPV types (16,18,31,33,35,39,45,51,52,56,58,59,66,68) without differentiation. Chlamydia trachomatis BHUMI Negative Negative [facility] ACCOUNT BILL GC BHUMI Negative Negative [facility] ACCOUNT BILL Trichomonas vaginalis by BHUMI Negative Negative [facility] ACCOUNT BILL PART OF UTERINE CERVIX / Unknown 12/08/2019 4:03 PM CDT 12/08/2019 Narrative [facility] ACCOUNT BILL - 12/10/2019 1:08 PM CDT Source.............Cervix;Endocervix No. of containers..01 ThinPrep Vial Resulting Agency Comment Lab Testing performed at: [facility] [place] [facility] [employer] [id number] Jacklyn Galaviz DO LAB - PATHOLOGY/CYTO LOGY ORDERABLES [facility] ACCOUNT BILL [address] [place] [address] from Last 3 Months or Most Recently Relevant to Health Maintenance Advance Directives * Full Code (Latest Code Status on File) Date Activated Date Inactivated Comments 03/19/2023 9:26 PM 03/20/2023 5:34 PM * Full Code Date Activated Date Inactivated Comments 11/28/2022 9:40 PM 12/02/2022 12:02 PM * Full Code Date Activated Date Inactivated Comments 08/14/2021 2:27 PM 08/16/2021 6:16 PM Care Teams Motor Vehicle Lecturer Relationship Specialty Start Date End Date Macy Contreras MD [address] [place] [address] PCP - General Internal Medicine 09/12/21
--- OUTSIDE RECORDS SUMMARY | 2024-04-30 11:34 | XMS_ITS | Clinical Summary ---
Author Organization [facility] [id number] [place] Address [address] [place] [id number] Care Team Providers Care Electronic Controls Repairer Supervisor Name Role Phone Kobi Martinez MD, Rory Irwin. Primary Care Provider + Allergies Active Allergy Reactions Criticality Noted Date Comments Sulfamethoxazole-Trimethop rim Hives,Itching,Nausea And Vomiting,Urticaria High 05/01/2016 Medications omeprazole (PriLOSEC) 40 mg capsule 07/28/2020 Active prochlorperazin e (COMPAZINE) 5 mg tablet TAKE 1 TABLET BY ORAL ROUTE EVERY 6 HOURS NEEDED FOR NAUSEA AND VOMITING 08/21/2020 Active glipiZIDE (GLUCOTROL) 10 mg tablet 09/03/2020 Active prochlorperazin e (COMPAZINE) 10 mg tablet Take 1 tablet (10 mg total) by mouth 2 (two) times a day as needed for nausea or vomiting 10 tablet 09/11/2020 Active metoclopramide (REGLAN) 10 mg tablet Take 1 tablet (10 mg total) by mouth every 6 (six) hours 30 tablet 03/17/2023 Active metoclopramide (REGLAN) 10 mg tablet Take 1 tablet (10 mg total) by mouth every 6 (six) hours 30 tablet 03/17/2023 Active Active Problems Problem Noted Date Diagnosed Date Nausea and vomiting 04/17/2020 Elevated blood-pressure read ing without diagnosis of hypertension 04/17/2020 Diverticulosis 04/17/2020 Surgical History Surgery Date Site/Laterality Comments ECTOPIC SURGERY ECTOPIC SURGERY Medical History Medical History Date Comments Diabetes mellitus (HCC) Family History Medical History Relation Name Comments Diabetes Brother Hypertension Brother Cancer Father Diabetes Father Hypertension Father Diabetes Mother Hypertension Mother Diabetes Sister Hypertension Sister Retinal detachment Sister Relation Name Status Comments Brother Father Mother Sister Social History Tobacco Use Types Packs/Day Years Used Date Smoking Tobacco: Never Smokeless Tobacco: Never Tobacco Cessation:Counseling Given: Not Answered Alcohol Use Standard Drinks/Week Comments Not Currently 0 (1 standard drink = 0.6 oz pur e alcohol) Personal Safety Answer Date Recorded Have you ever been in or are you currently in a harmful physical or emotional relationship or is someone making you feel afraid or unsafe? Denies 03/17/2023 Comments No Sex and Gender Information Value Date Recorded Sex Assigned at Not on file Legal Sex Female 12:42 AM FINAL [employer]ENSE [employer]ENT Gender Identity Not on file Sexual Orientation Not on file Obstetrics History Last Filed Vital Signs Vital Sign Reading Time Taken Comments Blood Pressure 114/79 03/17/2023 6:55 PM FIN[employer]ENSE AGENT Pulse 106 03/17/2023 6:55 PM FINAL [employer] AGENT Temperature 36.1 C (97 F) 03/17/2023 8:25 AM FINAL [employer]PENSE AGENT Respiratory Rate 16 03/17/2023 6:55 PM FINAL EXPENSE AGENT Oxygen Saturation 100% 03/17/2023 6:55 PM FINAL [employer]PENSE AGENT Inhaled Oxygen Concentration - - Weight 83.9 kg (185 lb) 03/17/2023 8:25 AM FINAL [employer]PENSE AGENT Height 160 cm (5' 3 ) 03/17/2023 8:25 AM [employer] AGENT Body Mass Index 32.77 03/17/2023 8:25 AM FINAL [employer] AGENT Plan of Treatment Health Maintenance Due Date Last Done Comments Cervical Cancer Screening 1980 Depression Screening 1980 Hepatitis C Screening 1980 DTaP/Tdap/Td Vaccine (5 - Tdap) 10/13/1991 10/07/1984, 05/17/1982, 04/28/1981, Additional history exists Varicella Vaccines (1 of 2 - 13+ 2-dose series) 1993 Hepatitis B Screening 1998 Regular Well Visit/Exam 18-64 1998 Breast Cancer Screening-Mammogram 04/10/2022 04/10/2021 Covid-19 Vaccine ( season) 2023 11/21/2020, 10/24/2020 Influenza Vaccine (#1) 2023 HPV Vaccines Aged Out No longer eligi ble based on patient's age to complete this topic Pneumococcal vaccine <65 Aged Out No longer eligible based on patient's age to complete this topic Insurance ANTHEM ACCESS CHOICE Host Committee [employer] ACCESS CHOICE [facility] ACCESS CHOICE Care Teams Electronic Controls Repairer Supervisor Relationship Specialty Start Date End Date Rory Peace Jr., MD [address] [place] [address] PCP - General Internal Medicine 11/10/19
--- OUTSIDE RECORDS SUMMARY | 2024-04-30 11:34 | XMS_ITS | Continuity of Care Document ---
Author Organization [employer] Address [address] [place] [address] Phone Care Team Providers Care Sales Representative [employer] Name Role Phone Macy Steven MD Unavailable Unavailabl e Allergies, Adverse Reactions, Alerts Substance Reaction Status Criticality semaglutide Active No Information Medications Medication Instructions Dosage Effective Dates (start - stop) Status Comments GLIPIZIDE 10 MG TABLET TAKE 2 TABLET BY MOUTH TWICE A DAY BEFORE MEALS - Active Semglee (insulin glargine-yfgn) Pen 100 unit/mL (3 mL) subcutaneous INJECT 25 UNITS UNDER THE SKIN ONCE DAILY AT BEDTIME - Active METOCLOPRAMIDE 10 MG TABLET TAKE 1 TABLET BY MOUTH EVERY 6 HOURS 30 MINUTES BEFORE MEALS AND AT BEDTIME NEEDED - Active rosuvastatin 10 mg tablet TAKE 1 TABLET BY MOUTH EVERY DAY - Active GLIPIZIDE 10 MG TABLET TAKE 2 TABLET BY MOUTH TWICE A DAY BEFORE MEALS - No Longer Active Procedures Procedure Date Pt inelig neg scrn depres FALL RISK ASSESSMENT DOC'D PRES/ABSN URINE INCON ASSESS BASIC METABOLIC PANEL(BMP) HEMOGLOBIN A1C HGA1C, GLYCO LDL-CHOLESTEROL, DIRECT MICROALBUMIN, QN (URINE) CREATININE, (U-R) ROUTINE VENIPUNCTURE OFFICE [id number] BODY MASS INDEX DOCD SYST BP LT 130 MM HG DIAST BP < 80 MM HG FALL RISK ASSESSMENT DOC'D PRES/ABSN URINE INCON ASSESS Pt inelig neg scrn depres IMMUN ADMIN (INC PERCUTANEOUS) SINGLE, F IRST INJ INFLUENZA VIRUS VACCINE 0.5mL DOSAGE; NM ESERVATIVE FREE, IM USE OFFICE [id number] BODY MASS INDEX DOCD SYST BP LT 130 MM HG DIAST BP < 80 MM HG FALL RISK ASSESSMENT DOC'D PRES/ABSN URINE INCON ASSESS Pt inelig neg scrn depres IMMUN ADMIN (INC PERCUTANEOUS) SINGLE, F IRST INJ Pneumococcal Conjugate Vaccine (PCV20) J GENERAL HEALTH PANEL HEMOGLOBIN A1C HGA1C, GLYCO LIPID PANEL MICROALBUMIN, QN (URINE) CREATININE, (U-R) ROUTINE VENIPUNCTURE OFFICE [id number] BODY MASS INDEX DOCD SYST BP LT 130 MM HG DIAST BP 80-89 MM HG FALL RISK ASSESSMENT DOC'D PRES/ABSN URINE INCON ASSESS Pt inelig neg scrn depres DSCHRG MED/CURRENT MED MERGE Transitional Care- First 7 Days Of Disch arge BODY MASS INDEX DOCD SYST BP LT 130 MM HG DIAST BP 80-89 MM HG FALL RISK ASSESSMENT DOC'D PRES/ABSN URINE INCON ASSESS Pt inelig neg scrn depres OFFICE [id number]-[id number] BODY MASS INDEX DOCD SYST BP LT 130 MM HG DIAST BP 80-89 MM HG HEMOGLOBIN A1C HGA1C, GLYCO ROUTINE VENIPUNCTURE FALL RISK ASSESSMENT DOC'D PRES/ABSN URINE INCON ASSESS OFFICE [id number]-[id number]-[id number] BODY MASS INDEX DOCD SYST BP LT 130 MM HG DIAST BP 80-89 MM HG FALL RISK ASSESSMENT DOC'D PRES/ABSN URINE INCON ASSESS DSCHRG MED/CURRENT MED MERGE IMMUN ADMIN (INC PERCUTANEOUS) SINGLE, F IRST INJ FLU VACC 4 DRAKE 0.5mL DOSAGE Transitional Care- First 7 Days Of Disch arge BODY MASS INDEX DOCD SYST BP LT 130 MM HG DIAST BP < 80 MM HG BASIC METABOLIC PANEL(BMP) ROUTINE VENIPUNCTURE HEMOGLOBIN A1C HGA1C, GLYCO FALL RISK ASSESSMENT DOC'D PRES/ABSN URINE INCON ASSESS Pt inelig neg scrn depres GLUCOSE MONITORING, FINGERSTICK-OFFICE L AB FINGER OR HEEL STICK-COLLECTION OF CAPIL CAREN BLOOD SPECIMEN OFFICE [id number] BODY MASS INDEX DOCD SYST BP LT 130 MM HG DIAST BP < 80 MM HG Kept Appointment No Charge Encounter Aug HEMOGLOBIN A1C HGA1C, GLYCO ROUTINE VENIPUNCTURE PRES/ABSN URINE INCON ASSESS Pt inelig neg scrn depres OFFICE [id number] BODY MASS INDEX DOCD SYST BP LT 130 MM HG DIAST BP 80-89 MM HG Kept Appointment No Charge Encounter Apr FALL RISK ASSESSMENT DOC'D PRES/ABSN URINE INCON ASSESS Pt inelig neg scrn depres OFFICE [id number] BODY MASS INDEX DOCD SYST BP LT 130 MM HG DIAST BP 80-89 MM HG CBC, INC PLATELETS AND DIFFERENTIAL COMPREHEN METABOLIC PANEL CMP HEMOGLOBIN A1C HGA1C, GLYCO LIPID PANEL MICROALBUMIN, QN (URINE) CREATININE, (U-R) ROUTINE VENIPUNCTURE Pt inelig neg scrn depres FALL RISK ASSESSMENT DOC'D PRES/ABSN URINE INCON ASSESS GLUCOSE MONITORING, FINGERSTICK-OFFICE L AB FINGER OR HEEL STICK-COLLECTION OF CAPIL CAREN BLOOD SPECIMEN OFFICE OFHFE-EOG-[id number] BODY MASS INDEX DOCD SYST BP LT 130 MM HG DIAST BP 80-89 MM HG FALL RISK ASSESSMENT DOC'D PRES/ABSN URINE INCON ASSESS Pt inelig neg scrn depres OFFICE CITLE-MWY-[id number] BODY MASS INDEX DOCD SYST BP LT 130 MM HG DIAST BP 80-89 MM HG GLUCOSE MONITORING, FINGERSTICK-OFFICE L AB FINGER OR HEEL STICK-COLLECTION OF CAPIL CAREN BLOOD SPECIMEN Kept Appointment No Charge Encounter Jan FALL RISK ASSESSMENT DOC'D PRES/ABSN URINE INCON ASSESS Pt inelig neg scrn depres OFFICE [id number] BODY MASS INDEX DOCD SYST BP GE 130 - 139MM HG DIAST BP < 80 MM HG HEMOGLOBIN A1C HGA1C, GLYCO ROUTINE VENIPUNCTURE IMMUN ADMIN (INC PERCUTANEOUS) SINGLE, F IRST INJ FLU VAC NO PRSV 4 DRAKE, 0.5mL DOSAGE FALL RISK ASSESSMENT DOC'D PRES/ABSN URINE INCON ASSESS Pt inelig neg scrn depres GLUCOSE MONITORING, FINGERSTICK-OFFICE L AB FINGER OR HEEL STICK-COLLECTION OF CAPIL CAREN BLOOD SPECIMEN OFFICE CPVJO-SZD-HVILABMM BODY MASS INDEX DOCD SYST BP LT 130 MM HG DIAST BP 80-89 MM HG HEMOGLOBIN A1C HGA1C, GLYCO ROUTINE VENIPUNCTURE OFFICE YNMZI-IEF-[id number] BODY MASS INDEX DOCD SYST BP LT 130 MM HG DIAST BP 80-89 MM HG FALL RISK ASSESSMENT DOC'D PRES/ABSN URINE INCON ASSESS HEMOGLOBIN A1C HGA1C, GLYCO ROUTINE VENIPUNCTURE OFFICE [id number]-[id number]-[id number] BODY MASS INDEX DOCD SYST BP LT 130 MM HG DIAST BP 80-89 MM HG FALL RISK ASSESSMENT DOC'D PRES/ABSN URINE INCON ASSESS Pt inelig neg scrn depres GLUCOSE MONITORING, FINGERSTICK-OFFICE L AB FINGER OR HEEL STICK-COLLECTION OF CAPIL CAREN BLOOD SPECIMEN CBC, INC PLATELETS, NO DIFFERENTIAL COMPREHEN METABOLIC PANEL CMP HEMOGLOBIN A1C HGA1C, GLYCO LIPID PANEL MICROALBUMIN, QN (URINE) CREATININE, (U-R) THYROID STIMULATION HORMONE(TSH) 2021 VITAMIN D, 25-HYDROXY ROUTINE VENIPUNCTURE OFFICE HOAKM-ZJM-XJHCJVTR BODY MASS INDEX DOCD SYST BP LT 130 MM HG DIAST BP 80-89 MM HG IMMUN ADMIN (INC PERCUTANEOUS) SINGLE, F IRST INJ Flu Vac, quad (RIV4), Preservative And A ntibiotic Free IM OFFICE [id number]-MXM-[id number] BODY MASS INDEX DOCD SYST BP LT 130 MM HG DIAST BP >= 90 MM HG UPPER GI ENDOSCOPY BIOPSY BODY MASS INDEX DOCD SYST BP GE 130 - 139MM HG DIAST BP >= 90 MM HG OFFICE [id number]-[id number] FORM CHARGE Pt inelig neg scrn depres FALL RISK ASSESSMENT DOC'D GLUCOSE MONITORING, FINGERSTICK-OFFICE L AB FINGER OR HEEL STICK-COLLECTION OF CAPIL CAREN BLOOD SPECIMEN OFFICE QJWNG-HAL-[id number] BODY MASS INDEX DOCD SYST BP LT 130 MM HG DIAST BP < 80 MM HG FALL RISK ASSESSMENT DOC'D PRES/ABSN URINE INCON ASSESS Pt inelig neg scrn depres OFFICE RCOTK-VCM-SPIDHRYH BODY MASS INDEX DOCD SYST BP LT 130 MM HG DIAST BP 80-89 MM HG GLUCOSE MONITORING, FINGERSTICK-OFFICE L AB FINGER OR HEEL STICK-COLLECTION OF CAPIL CAREN BLOOD SPECIMEN DSCHRG MED/CURRENT MED MERGE FALL RISK ASSESSMENT DOC'D PRES/ABSN URINE INCON ASSESS Pt inelig neg scrn depres HEMOGLOBIN A1C HGA1C, GLYCO ROUTINE VENIPUNCTURE GLUCOSE MONITORING, FINGERSTICK-OFFICE L AB FINGER OR HEEL STICK-COLLECTION OF CAPIL CAREN BLOOD SPECIMEN OFFICE EOBJW-HQT-FIJRRGNY BODY MASS INDEX DOCD SYST BP GE 130 - 139MM HG DIAST BP >= 90 MM HG FALL RISK ASSESSMENT DOC'D PRES/ABSN URINE INCON ASSESS Pt inelig neg scrn depres CBC, INC PLATELETS, NO DIFFERENTIAL COMPREHEN METABOLIC PANEL CMP 0 HEMOGLOBIN A1C HGA1C, GLYCO LIPID PANEL MICROALBUMIN, QN (URINE) CREATININE, (U-R) THYROID STIMULATION HORMONE(TSH) 2019 ROUTINE VENIPUNCTURE GLUCOSE MONITORING, FINGERSTICK-OFFICE L AB FINGER OR HEEL STICK-COLLECTION OF CAPIL CAREN BLOOD SPECIMEN OFFICE YUMXH-MKY-WOXVEMNZ BODY MASS INDEX DOCD SYST BP LT 130 MM HG DIAST BP 80-89 MM HG FALL PLAN OF CARE DOC'D URINE INCON PLAN DOC'D PRES/ABSN URINE INCON ASSESS Pt inelig neg scrn depres GLUCOSE MONITORING, FINGERSTICK-OFFICE L AB FINGER OR HEEL STICK-COLLECTION OF CAPIL CAREN BLOOD SPECIMEN OFFICE PEJHW-BCG-SQUGXLIY BODY MASS INDEX DOCD SYST BP LT 130 MM HG DIAST BP 80-89 MM HG FALL PLAN OF CARE DOC'D URINE INCON PLAN DOC'D PRES/ABSN URINE INCON ASSESS Pt inelig neg scrn depres IMMUN ADMIN (INC PERCUTANEOUS) JOSE JUAN, F IRST INJ OFFICE UHRTD-[id number]-[id number] BODY MASS INDEX DOCD SYST BP LT 130 MM HG DIAST BP < 80 MM HG HEMOGLOBIN A1C HGA1C, GLYCO ROUTINE VENIPUNCTURE Flu Vac, quad (RIV4), Preservative And A ntibiotic Free IM Kept Appointment No Charge Encounter Aug Kept Appointment No Charge Encounter Aug Advance Directives Directive Yes / No Effective Date File Name No Information Encounters Encounter Description Practice Location Reason(s) For Visit Diagnoses Date Provider Providers Copied on Encounter [facility], [address], [place], [place], [address] , tel: [phone] [facility] No Information 5 Nabil Cavazos. [address], [place], [address] , [place]. tel: [phone] OFFICE YPEIW-AYR-XTB ANDED [facility], [address], [place], [place], [address] , [place] tel: [phone] [facility] Routine (chief complaint)C hronic Conditions (chief complaint) Controlled type 2 diabetes mellitus with other circulatory complication, without long-term current use of insulinMixed hyperlipidemiaTy pe 2 diabetes mellitus without complications 4 Billops Mey. [address], [place], [address] , [place]. tel: [phone] Referring Provider: Macy Sena, [address] [place], [address] . tel:[phone] [facility], [address], [place], [place], [address] , tel: [phone] [facility] Severe obesity Sep- 4 Nabil Cavazos. [address], [place], [address] , [place]. tel: [phone] OFFICE SSJPH-UBM-NDU [facility], [address], [place], [place], [address] , tel: [phone] [facility] follow-up (chief complaint) Type 2 diabetes mellitus with both eyes affected by moderate nonproliferative retinopathy without macular edema, without long-term current use of insulinLong term (current) use of insulinMixed hyperlipidemiaDi abetic gastroparesisSev ere obesity Nov-0 4 Nabil Cavazos. [address] [employer] [place], [place], [address] , [place]. tel: [phone] Referring Provider: Macy Sena [address] [employer] [facility], [place], [address] . tel:[phone] [facility], [address], [place], [place], [address] , tel: [phone] [facility] No Information 4 Nabil Cavazos. [address] [employer] [place], [place], [address] , [place]. tel: [phone] OFFICE FGEVF-PEC-ADC [facility], [address], [place], [place], [address] , [place] tel: [phone] [facility] follow-up (chief complaint) Mixed hyperlipidemiaTy pe 2 diabetes mellitus with both eyes affected by moderate nonproliferative retinopathy without macular edema, without long-term current use of insulinHealth care maintenanceLong term (current) use of insulin 4 Nabil Cavazos. [address] [place] [address] , [place]. tel: [phone] Referring Provider: Macy Sena [address] [employer] [place] [place], [address] . tel:[phone] [facility], [address], [place], [place], [address] , [place] tel: [phone] [facility] No Information 4 Nabil Cavazos. [address] [place], [address] , [place]. tel: [phone] Transitional Care- First 7 Days Of Discharge [facility], [address], [place], [place], [address] , [place] tel: [phone] [facility] Follow-Up (chief complaint) Controlled type 2 diabetes mellitus with other circulatory complication, without long-term current use of insulinDiabetic gastroparesisMix ed hyperlipidemia 4 Nabil Cavazos. [address], [place], [address] , [place]. tel: [phone] Referring Provider: Macy Sena [facility] [facility], [place], [address] . tel:[phone] OFFICE NLPYZ-VKK-XFR ANDED [facility], [address], [place], [place], [address] , [place] tel: [phone] [facility] follow-up (chief complaint) Type 2 diabetes mellitus with both eyes affected by moderate nonproliferative retinopathy without macular edema, without long-term current use of insulinDiabetic gastroparesisTob acco dependence 3 Nabil Cavazos. [address], [place], [address] , [place]. tel: [phone] Referring Provider: [facility]acy [facility]a [facility], [place], [address] . tel:[phone] OFFICE MYNNQ-PDL-XUP ANDED [facility], [address], [place], [place], [address] , [place] tel: [phone] [facility] follow-up (chief complaint) Type 2 diabetes mellitus with both eyes affected by moderate nonproliferative retinopathy without macular edema, without long-term current use of insulinMixed hyperlipidemiaTo bacco dependence 3 Nabil Cavazos. [address], [place], [address] , [place]. tel: [phone] Referring Provider: Macy Sena [address] [facility], [place], [address] . tel:[phone] Transitional Care- First 7 Days Of Discharge [facility], [address], [place], [place], [address] , [place] tel: [phone] [facility] Follow-Up (chief complaint) Diabetic gastroparesisMix ed hyperlipidemiaTo bacco dependenceHypona tremiaDiabetic ketoacidosis without coma associated with type 2 diabetes mellitusLong term (current) use of insulinType 2 diabetes mellitus with both eyes affected by moderate nonproliferative retinopathy without macular edema, without long-term current use of insulin Nov- 3 Nabil Cavazos. [address] [employer], [address] , [place]. tel: [phone] Referring Provider: Macy Sena, [address] [employer], [place], [address] . tel:[phone] OFFICE ILEVY-HQQ-BBE ANDED [facility], [address], [place], [place], [address] , [place] tel: [phone] [facility] Follow Up of Patient encounter (chief complaint) Diabetic gastroparesisTyp e 2 diabetes mellitus with hyperglycemia, without long-term current use of insulin 3 Nabil Cavazos. [address] [employer] [place], [place], [address] , [place]. tel: [phone] Referring Provider: Macy Sena [address] [employer], [place], [address] . tel:[phone] [employer] [address], [place], [place], [address] , [place] tel: [phone] [facility] No Information 3 Nabil Cavazos. [address] [place] [place], [address] , [place]. tel: [phone] Referring Provider: Macy Sena [address] [employer], [place], [address] . tel:[phone] [employer] [address], [place], [place], [address] , [place] tel: [phone] [facility] Type 2 diabetes mellitus with both eyes affected by moderate nonproliferative retinopathy without macular edema, without long-term current use of insulin Jun- 3 Nabil Cavazos. [address] [employer], [address] , [place]. tel: [phone] Referring Provider: Macy Sena, [address] [place], [address] . tel:[phone] OFFICE ZIGIY-IEH-NOD ANDED [employer] [facility], [address], [place], [place], [address] , tel: [phone] [facility] Patient encounter (chief complaint) History of diabetic gastroparesisGas troparesis due to DMType 2 diabetes mellitus with other specified complication, unspecified whether assisted insulin use 3 Nabil Cavazos. [address], [place], [address] , [place]. tel: [phone] Referring Provider: Macy Sena, [address] [facility], [place], [address] . tel:[phone] [employer] [address], [place], [place], [address] , [place] tel: [phone] [facility] No Information 3 Nabil Cavazos. [address], [place], [address] , [place]. tel: [phone] Referring Provider: Macy Sena, [address] [facility], [place], [address] . tel:[phone] OFFICE GFJUE-UNS-GEZ ANDED [employer] [address], [place], [place], [address] , [place] tel: [phone] [facility] Follow Up of Patient encounter (chief complaint) Gastroparesis due to DMType 2 diabetes mellitus with hyperglycemia, without long-term current use of insulin 3 Nabil Cavazos. [address], [place], [address] , [place]. tel: [phone] Referring Provider: Macy Sena [address] [place], [address] . tel:[phone] OFFICE SLFLP-VGG-BQZ ANDED [employer] [address], [place], [place], [address] , [place] tel: [phone] [facility] follow up (chief complaint) Gastroparesis due to DMType 2 diabetes mellitus with hyperglycemia, without long-term current use of insulin 2 Nabil Cavazos. [address], [place], [address] , [place]. tel: [phone] Referring Provider: Macy Nabil Sena, [address] [facility], [place], [address] . tel:[phone] OFFICE CGBTQ-ULX-RZX [facility], [address], [place], [place], [address] , [place] tel: [phone] [facility] Vomiting (chief complaint)P atient encounter (chief complaint) Gastroparesis due to DMType 2 diabetes mellitus with hyperglycemia, without long-term current use of insulinAcute viral syndrome 2 Nabil Cavazos. [address], [place], [address] , [place]. tel: [phone] Referring Provider: Macy Sena, [address] [place] [address], [address] . tel:[phone] [facility], [address], [place], [place], [address] , [place] tel: [phone] [facility] No Information 2 Nabil Cavazos. [address], [place], [address] , [place]. tel: [phone] OFFICE ZQXPW-NRT-ZQY [facility], [address], [place], [place], [address] , [place] tel: [phone] [facility] Patient encounter (chief complaint) Gastroparesis due to DMType 2 diabetes mellitus with hyperglycemia, without long-term current use of insulinS/P cholecystectomyH ealth care maintenance 2 Nabil Cavazos. [address], [place], [address] , [place]. tel: [phone] Referring Provider: Macy Sena [address] [place] [address], [address] . tel:[phone] OFFICE KWTCL-MKZ-LKF ANDCHI [facility], [address], [place], [place], [address] , [place] tel: [phone] 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 [address], [place], [address] , [place]. tel: [phone] Referring Provider: Seth Potter, [address] [place], [address] . tel:[phone] OFFICE XHMIN-JVP-YBS [facility] [employer] [facility], [address], [place], [place], [address] , [place] tel: [phone] [facility] Abdominal pain (chief complaint)N ausea/vomit ing (chief complaint) Nausea and vomiting, unspecified vomiting typeUpper abdominal pain 2 Edward Hager. [address] [place] [address], [address] , [place]. tel: [phone] Referring Provider: Macy Sena, [address] [facility], [place], [address] . tel:[phone] OFFICE LDEKY-ZEG-EBJ [facility] [employer] [facility], [address], [place], [place], [address] , [place] tel: [phone] [facility] Diabetes (follow up) (chief complaint)C hronic Conditions (chief complaint) Type 2 diabetes mellitus without complication, without long-term current use of insulin Jun- 2 Castillo [address], [place], [address] , [place]. tel: [phone] Referring Provider: Macy Sena [address] [place], [address] . tel:[phone] OFFICE QIINJ-ZJS-PVJ [facility], [address], [place], [place], [address] , [place] tel: [phone] [facility] Office visit (chief complaint)C hronic Conditions (chief complaint) Type 2 diabetes mellitus without complication, without long-term current use of insulinInfluenza vaccine administeredRout ine physical examination 2 Jonathan Sultana. [address], [place], [address] , [place]. tel: [phone] Referring Provider: Barbaralucila Nabil Sena, [address] [facility], [place], [address] . tel:[phone] OFFICE XAZHZ-ZNV-DRL [facility], [address], [place], [place], [address] , [place] tel: [phone] [facility] N/V (chief complaint) No Information 1 Edward Hager. [address] [place], [place], [address] , . tel: [phone] Referring Provider: Rory Irwin, [facility] [place], [address] . tel:[phone] [facility], [address], [place], [place], [address] , [place] tel: [phone] [facility] No Information 1 Ramonesarah Scotaleksandar. [address], [place], [address] , . tel: [phone] Referring Provider: Rory Irwin, [facility] [place], [address] . tel:[phone] OFFICE VQSMR-INJ-CDE [facility], [address], [place], [place], [address] , [place] tel: [phone] [facility] Nausea and vomiting (chief complaint) No Information 1 Edward Hager. [address], [place], [address] , [place]. tel: [phone] Referring Provider: Rory Irwin, [facility] [place], [address] . tel:[phone] [facility], [address], [place], [place], [address] , [place] tel: [phone] [facility] No Information 1 Jonathan Sultana. [address], [place], [address] , [place]. tel: [phone] Referring Provider: Rory Irwin, [address] [place], [address] . tel:[phone] OFFICE QUWZE-JMO-RIO ANDCHI [facility], [address], [place], [place], [address] , [place] tel: [phone] [facility] Office visit (chief complaint)C hronic Conditions (chief complaint) No Information 1 Jonathan Sultana. [address], [place], [address] , [place]. tel: [phone] Referring Provider: Rory Irwin, [address] [place], [address] . tel:[phone] OFFICE DLXEC-CCN-IYN [facility], [address], [place], [place], [address] , [place] tel: [phone] [facility] Nausea (chief complaint) No Information 1 Jonathan Sultana. [address], [place], [address] , [place]. tel: [phone] Referring Provider: Rory Irwin, [address] [place], [address] . tel:[phone] [facility], [address], [place], [place], [address] , [place] tel: [phone] [facility] No Information 1 Kobi Valadez. [address], [place], [address] . tel: [phone] Referring Provider: Rory Irwin, [address] [place] [address], [address] . tel:[phone] OFFICE ELCRC-ENM-NOA [facility], [address], [place], [place], [address] , [place] tel: [phone] [facility] Diabetes (follow up) (chief complaint)C hronic Conditions (chief complaint) No Information 0 Jonathan Craft [address], [place], [address] , [place]. tel: [phone] Referring Provider: Rory Irwin, [address] [place] [address], [address] . tel:[phone] OFFICE SCAAL-IWM-RWK ANDED [facility], [address], [place], [place], [address] , [place] tel: [phone] [facility] Diabetes (follow up) (chief complaint) No Information 0 Rogers Ricardo. [address], [place], [address] , [place]. tel: [phone] Referring Provider: Rory Irwin, [address] [place] [address], [address] . tel:[phone] OFFICE LWJIZ-ZTC-TLE ANDED [facility], [address], [place], [place], [address] , [place] tel: [phone] [facility] Diabetes (follow up) (chief complaint) No Information - 0 Jonathan Sultana. [address], [place], [address] , [place]. tel: [phone] Referring Provider: Rory Irwin, [address] [place] [address], [address] . tel:[phone] OFFICE [id number] ANDCHI [facility], [address], [place], [place], [id number] , [place] tel: [phone] [facility] Diabetes (follow up) (chief complaint)C hronic Conditions (chief complaint) No Information [phone] Jonathan Sultana. [address], [place], [id number] , [place]. tel: [phone] Referring Provider: Rory Irwin, [address] [place] [address], [id number] . tel:[phone] [facility], [address], [place], [place], [id number] , [place] tel: [phone] [facility] No Information 201 9 Jonathan Sultana. [address] [place] [address] [place], [id number] , . tel: [phone] Referring Provider: Rory Irwin, [address] [place] [address], [id number] . tel:[phone] [facility] [address], [place], [place], [id number] , tel: [phone] [facility] No Information 9 Castillo Kayy. [address] [place], [place], [id number] , . tel: [phone] Referring Provider: Rory Irwin, [address] [place] [address], [id number] . tel:[phone] [facility] [address], [place], [place], [id number] , tel: [phone] [facility] No Information 8 Castillo Kayy. [address] [place] [address], [id number] , . tel: [phone] Referring Provider: Rory Irwin, [address] [place] [address], [id number] . tel:[phone] [facility] [address], [place], [place], [id number] , tel: [phone] [facility] No Information 8 Castillo Kayy. [address], [place], [id number] , . tel: [phone] Referring Provider: Rory Irwin, [address] [place] [address], [id number] . tel:[phone] Family History Family Member Type Diagnosis Age At Onset Maternal grandfather Problem (finding) diabetes mellitus in first degree relative Paternal aunt Problem (finding) breast cancer Sister Problem (finding) diabetes melli tus in first degree relative Mother Problem (finding) diabetes melli tus in first degree relative Problem (finding) Family history of hyper tension Maternal grandmother Problem (finding) diabetes mellitus in first degree relative Brother Problem (finding) diabetes melli tus in first degree relative Father Problem (finding) diabetes melli tus in first degree relative Paternal grandfather Problem (finding) diabetes mellitus in first degree relative Paternal grandmother Problem (finding) diabetes mellitus in first degree relative Problem (finding) Family history of Diabetes mellitus Immunizations Vaccine Date Status Comments Fluzone Trivalent, preservative free, split virus, 0.5mL dosage administered Source: New Immuniza tion Record Pneumococcal conjugate PCV20 administered Source: New Immunization Record Fluzone Quad, split virus, 0.5mL dosage administered Source: New Immuniza tion Record Fluzone Quad, preservative free, split virus, 0.5mL dosage administered Source: New Immuniza tion Record Flublok, quadrivalent, preservative free, 0.5mL dosage administered Source: New Immuniza tion Record Moderna COVID19 Vaccine, 0.5 mL per dose, 2 doses, administered 28 days apart administered Source: Publi c Agency Moderna COVID19 Vaccine, 0.5 mL per dose, 2 doses, administered 28 days apart administered Source: Publi c Agency Fluzone Quad, split virus, 0.5mL dosage administered Source: New Immuniza tion Record Fluzone Quad, split virus, 0.5mL dosage administered Source: New Immuniza tion Record Fluzone Quad [id number], spli t virus, 0.5mL dosage administered Source: New Immuniza tion Record Td (adult), adsorbed administered Source: New Immunization Record Payers Payer name Insurance type Covered green party ID Authoriza tion(s) BCBS ACCESS CHOICE BL [id number] BCBS ACCESS CHOICE BL [id number] BCBS ACCESS CHOICE BL [id number] BCBS ACCESS CHOICE BL [id number] BCBS ACCESS CHOICE BL [id number] BCBS ACCESS CHOICE BL [id number] BCBS ACCESS CHOICE BL [id number] BCBS ACCESS BL [id number] BCBS INACTIVE OUT OF STATE BL [id number] BCBS INACTIVE OUT OF STATE [id number] Social History Type Description Quantity Date Captured Comments Sex Female Smoking Status No Information Chief Complaint And Reason For Visit No Information Reason For Referral Reason For Referral No Information Plan Of Treatment Date Type Action Status Referral Ordered: Dr Linda Hernandez MD -Endocrinology, Diabetes and Metabolism (related to Controlled type 2 diabetes mellitus with other circulatory complication, without long-term current use of insulin) ordered Referral Referred To: Dr Linda Hernandez MD Ordered: Referrals: Endocrinology, Diabetes and Metabolism. Dr Linda Hernandez MD. Location: [address] [place] [address] [address], [place] [address]. Evaluation/diagnostic/treatment - Level 3 ordered Referral Ordered: Catalino Lama MD -Surgery (related to Severe obesity) ordered Referral Referred To: [place] [address]
[facility] [address] [place], [id number] Ordered: Referrals: Surgery. Catalino Lama MD. Evaluation/diagnostic/treatment - Level 3 ordered Referral Ordered: Hepatobiliary iminodiacetic acid (HIDA) scan with gallbladder ejection fraction Appointment date/timeframe: 10/06/2020 ordered Appointment Chula Acuña BOOKED Appointment Chula Acuña BOOKED Patient Education Gastroparesis: Care Ins tructions completed History Of Present Illness Encounter Date Complaint History Of Prese nt Illness Chronic Conditions *See Chronic Conditions HPI Routine Pt reports no ch anges to health or medication and no UC or ER visits. Pt reports compliance with all medications as prescribed. Pt reports no other concerns at this time.ROS: Negative chest pain, SOB, n/v, headache, dizziness, edemaDM labs: will check bmp, hga1c, LDL, micr/cr follow-up Pt is here for f /u DMBG this am 251 which is the highest BG.. On avg range 14-150s. Lowest 140. +increased thirst, urinary freq, no dysuria. Has not seen eye doctor b/c work schedule keeps changing. No recent episodes of gastroparesis. Jardiance nor farxiga work for the pt MOPt continues to gain weight. unable to lose. States has no time to go to dietitian because of her job scheduleHCMPt to call Dr. Galaviz: gyne to schedule pap Pt needs referral for mammogram follow-up Pt is here for f /u She is w/o complaints DMBG high 170 low 80, no hypoglycemic episodes. pt has not been able go get to eye doctor as her work schedule has changed again Mixed HL not sure if has myalgias but tolerating well Hospital Follow-Up The patient w as seen today for a hospital follow-up visit. Details regarding this most recent admission include: Pt is here for hospital f/u. Admitted to [facility] from 03/17-03/18 per pt but records shows pt in the ED from03/17-03/17. Pt seen for n/v likely secondary to gastroparesis. N/v improved.DM Pt has not been checking her BG at home. It was 349 when she was in the hospitalMixed HLNo myalgias Pt's name, Chula is [facility] follow-up DMHighest [address] night[address] BG 134 this am. No hypoglycemic episodes Gastroparesis Stable. On MetoclopramideTobacco Dependence In Remission. No cig since last hosp 11/2022 follow-up DMPt reports BG range b/t 110s-150s Highest 180. No reported hypoglycemia. She is still off insulin. She has resumed Farxiga. Denies n/v.Pt has to schedule with Dr. Hong ramos Pt has not smoked since out of the hospital. Never received nicotine patches Mixed HLNo myalgias Hospital Follow-Up The patient w as seen today for a hospital follow-up visit. Details regarding this most recent admission include: Pt is here for hosp f/u. Admitted to [facility] from 11/28-12/02/22 for DKA. She is feeling much better. Appetite is back. Denies any n/v. She is still on Reglan. Pt reports she was feeling sick at work and peeing a lot before going to the hospital. BG not checked at home for > 1 month as her machine had broken. She was given a new machine and supplies while at [facility]. Pt started on Semglee during hospitalization and not told if she should resume Farxiga or not. Pt has not been taking Farxiga Pt given One Touch meter. She has lancets and test stripes. BG 90 this am. BG yesterday 70 in the am and before dinner was 167. Pt denies CP, SOB, cough, F/C. No urinary symptomsHyponatremia Pt's sodium was low in the hospital Mixed HLPt is not on a statinTobacco Dep Pt has not had a cig since leaving the hospital. Pt prev smoking 1/2ppd. Had nicotine patch 7mg/ day during hospital which helped Follow Up of Patient encounter D M BG range 90-130. Highest 222, Low 90s. Pt c/o side effects from Jardiance. She reports dry mouth, constipation and now diarrhea Gastroparesis No more episodes since the last time Patient encounter DM BG range fr om 90-130s. Lowest 90s and the highest 140Gastroparesis Controlled. On Reglan Follow Up of Patient encounter P :t ws/o complaints today DM On avg BG range from 150-190s. The highest BG 252. Pt is able to keep Glipizide down now. Has not seen the eye doctor yet Gastroparesis Improved. Takes Reglan anytime she eats. Will take it three times per day while working b/c she eats lunch. Pt usu just eats BID when not working follow up Gastroparesis carroll s stopped since the last visit and getting Reglan. Pt ready to go back to work Feb 23, She states she's had 10 episodes of Gastroparess since Mar 2020 DMBG 197 today. She did not check previously. Denies hypoglycemic symptoms ]Needs FMLA papers filled out Vomiting Patient encounter GastroparesisS ymptoms began 2 wks ago. Pt did have chills, no fever. She ran out of Reglan approx 1.5 days ago. Vomiting has slowed down since 2 wks ago. When first started could not keep water down. Last food was yesterday. She had broth and 2 fruit cups. Pt is requesting a letter for her job. She has been going to work but taking off secondary to her illness. Has been to the hosp twice secondary to being sick. Had to go to hospital Feb 01 by ambulance. She has been dehydrated and given IVF.Viral syndromePT seen at [facility] Feb 07 for cough. She tested neg for COVID and Influenza. Pt dx'd with Viral syndrome and sent home. She states cold/viral symptoms have resolved. She still has nausea/vomiting from Gastroparesis. + liquid stoolDMUncontrolled. BG 387 today which is typical per pt when she has a flare of her Gastroparesis. She is unable to keep food down or meds down. Patient encounter DM w/ Gastropa resisBG 292 in clinic today. Pt admits to eating candy and having juice prior to coming today. Pt reports BG at home usu range b/t 120-130s. Highest BG at home 130 or 131. Denies hypoglycemic episodes. Denies polyuria or polydipsia, no blurred viison Off Ozempic b/c she felt this was the reason for Gallbladder flare ups. Since stopping the med and the having GB surgery, she has not had any more flare ups. Diarrhea is SE with the metformin so this is why she is not taking this. Taking Reglan only prn s/p choleGB was removed on September 13 a [facility] by Dr. Scar HOGAN w/ pap. Guillermina Solis at [facility] was her gyne.. Gets pap annually. No h/o abn pap in the past. Diabetes gastroparesis Chronic Conditions *See Chronic Conditions HPI Abdominal pain Nausea/vomiting Diabetes (follow up) Chronic Conditions *See Chronic Conditions HPI Chronic Conditions *See Chronic Conditions HPI Office visit N/V 39 year old [place] that presents for n/v, occurs cyclicly every 2 weeks. Now having bad flare of n/v, taking compazine for nausea does not help. She has decreased appetite. She is thirsty and hungry, but will vomit. Denies abdominal pain. No BM since in 2 weeks. Has lost almost 20 lbs in 3 months. Nausea and vomiting 39 year old female that presents for nausea and vomiting. This has been occurring since March. She has not been eating as much, has been on soft, liquid diet. When she vomits, it's water has vomited blood clots. When has nausea, feels like nausea sits in periumbilical area. When she has the bad episodes feels weak. She is diabetic only on glipizide currently. Weight currently stable. Stools are loose, no solid BM since March, denies blood in stools. She has been in the ED several times, due to n/V. Chronic Conditions *See Chronic Conditions HPI Office visit Nausea Nausea (comments) Patient presen ts today for continuous nausea and vomiting for the past month. She has been evaluated at [facility]. She was treated with IV fluids and discharged with antimetics. Patient reports the meds will work for a few hours and then she will become nauseated. CT abdomen showed diverticulosis. U/S abdomen showed sludge around gallbladder but HIDA scan is recommended. She has lost 20 pounds since her last visit. She has not been able to hold fluids down for the past 3 days. She is very weak and complains of dizziness with ambulation. [facility] triage called. Patient is being escorted by boyiendarvin to [facility]. Diabetes (follow up) Chronic Conditions *See Chronic Conditions HPI Diabetes (follow up) 1) Type 2 d iabetes mellitus with hypoglycemia without coma, without long-term current use of insulin (Well Controlled. Diabetes very well controlled at this time. A1c-5.8. She monitors blood sugars daily. FBG consistently within normal range. She takes medications without issues. She reports a few episodes or hypoglycemia mid-day while at work. We have discussed discontinuing Ozempic and managing diabetes on oral agent only. Patient agrees with this plan. Diet has improved. She has cut back on sugary snacks and drinks.) Pertinent negatives include fatigue, weight gain and weight loss. 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 Patient presents today for a routine visit. She denies any new medical concerns. She is due for her diabetic eye exam. She reports the last exam was 2 years ago but there aren't any records in chart. She has a personal history of diabetic retinopathy from 2010. She wears corrective lenses. She denies diplopia, blurred vision, and bright spots. Last A1C was 5.8. Average blood sugars have been ranging 100-120's. She denies any recent episodes of hypoglycemia.) Pertinent negatives include fatigue. Diabetes (follow up) Chronic Conditions *See Chronic Conditions HPI Functional Status Date Functional Assessmen t No Information Instructions Date Instruction Additional Infor mation - continue with curr ent medication as prescribed- Encouraged to continue with lifestyle modifications (healthy food choices and increased physical activity as tolerated) Related to Mixed hyperlipidemia - continue current m edication as prescribed- continue home glucose monitoring as prescribed- encouraged lifestyle modifications (healthy food choices and increase exercise as tolerated) and maintain a low-carb diet Status: Requires more self-management coaching. Goals: Your goal is to work on healthy eating habits. Barriers: No barriers to goal achievement have been identified. Related to Controlled type 2 diabetes mellitus with other circulatory complication, without long-term current use of insulin Well controlled --On Rosuvastati n Related to Mixed hyperlipidemia On Semglee Related to senior living (current) use of insulin Stable. Pt is not a candidate for GLP1s given gastroparesis histiry Related to Diabetic gastroparesis Your Diabetes is unc ontrolled. Your last A1c was 9.1. Goal for your fasting blood glucose (BG) is less than 130. 2 hours after eating, your BG goal is less than 180. Continue your medications. Eat less processed sugars and fat--Pt did not tolerate Jardiance or Farxiga. State, these meds did not work for her Related to Type 2 diabetes mellitus with both eyes affected by moderate nonproliferative retinopathy without macular edema, without long-term current use of insulin Cannot start Mounjar o secondary to history of gastroparesis--Refer to [facility] Weight Loss clinic Related to Severe obesity Patient is due for her mammogram Related to Health care maintenance On Semglee Related to senior living (current) use of insulin Well-controlled-- on rosuvastati n Related to Mixed hyperlipidemia Your Diabetes is unc ontrolled. Your most recent A1c is 9.1. Previous a1c 6.9. Goal for your fasting blood glucose (BG) is less than 130. 2 hours after eating, your BG goal is less than 180. Continue your medications. Eat less processed sugars and fatIt has been difficult for patient to schedule her eye exam secondary to her work schedule Related to Type 2 diabetes mellitus with both eyes affected by moderate nonproliferative retinopathy without macular edema, without long-term current use of insulin Stable On Rosuvastatin Related t o Mixed hyperlipidemia Symptoms improvedOn Metocloprami de Related to Diabetic gastroparesis Your Diabetes is con trolled. Your last A1c was 6.9. Goal for your fasting blood glucose (BG) is less than 130. 2 hours after eating, your BG goal is less than 180. Continue your medications. Eat less processed sugars and fat Related to Controlled type 2 diabetes mellitus with other circulatory complication, without long-term current use of insulin Your Diabetes is nikita rly controlled. Your last A1c was 7.8. Goal for your fasting blood glucose (BG) is less than 130. hours after eating, your BG goal is less than 180. Continue your medications. Eat less processed sugars and fat--Check A1c Related to Type 2 diabetes mellitus with both eyes affected by moderate nonproliferative retinopathy without macular edema, without long-term current use of insulin Stable. Still on Metoclopramide Related to Diabetic gastroparesis In Remission. Congra tulations on stopping smoking! Keep up the good work! Related to Tobacco dependence Congratulations on s top smoking. Keep up the good work! Related to Tobacco dependence Stable. On Rosuvastatin Related to Mixed hyperlipidemia Your Diabetes is nikita rly controlled. Your last A1c was 7.8. Goal for your fasting blood glucose (BG) is less than 130. 2 hours after eating, your BG goal is less than 180. Continue your medications. Eat less processed sugars and fatPt to schedule appt with Dr. Hong May: ophthalmology Related to Type 2 diabetes mellitus with both eyes affected by moderate nonproliferative retinopathy without macular edema, without long-term current use of insulin --Started on Semglee 20 u at night Please call next week on with your morning blood sugars readingsReturn to clinic in 3 wks Related to senior living (current) use of insulin --Check labs Related to Hypon atremia --Start Rosuvastatin . You are at an increased risk for heart attack and stroke given your Diabetes --Do not start this new medication until next Friday Related to Mixed hyperlipidemia No cigs since hospit alization--Will send Nicotine 7 mg prescription to the pharmacy Related to Tobacco dependence Improved. On Reglan as needed Re lated to Diabetic gastroparesis Improved. No more na usea and vomiting. Started on Semglee insulin--Continue to hold Farxiga --Continue your other medications Related to Diabetic ketoacidosis without coma associated with type 2 diabetes mellitus Pt to schedule appt with the eye doctor Related to Type 2 diabetes mellitus with both eyes affected by moderate nonproliferative retinopathy without macular edema, without long-term current use of insulin Your Diabetes is not optimally controlled. Your last A1c was 8.6. Goal for your fasting blood glucose (BG) is less than 130. 2 hours after eating, your BG goal is less than 180. Continue your medications. Eat less processed sugars and fat--Will stop Jardiance secondary to side effects --Start Farxiga Related to Type 2 diabetes mellitus with hyperglycemia, without long-term current use of insulin Stable. On Reglan Related to Karolyn betic gastroparesis Stable. On Reglan Related to Gas troparesis due to DM On Reglan Related to Histo ry of diabetic gastroparesis Your Diabetes is unc ontrolled but your most recent numbers are improved. Your last A1c was 8.4. Goal for your fasting blood glucose (BG) is less than 130. 2 hours after eating, your BG goal is less than 180. Continue your medications. Eat less processed sugars and fat Related to Type 2 diabetes mellitus with other specified complication, unspecified whether assisted insulin use Improved. On Reglan Related to G astroparesis due to DM Your Diabetes is not optimally controlled but improved from your previous reported numbers. Your last A1c was 7.5. Goal for your fasting blood glucose (BG) is less than 130. 2 hours after eating, your BG goal is less than 180. Continue your medications. Eat less processed sugars and fat Related to Type 2 diabetes mellitus with hyperglycemia, without long-term current use of insulin BG still elevated bu t improved. Your last A1c was 7.5. Goal for your fasting blood glucose (BG) is less than 130. 2 hours after eating, your BG goal is less than 180. Continue your medications. Eat less processed sugars and fat Related to Type 2 diabetes mellitus with hyperglycemia, without long-term current use of insulin Improved. On Reglan Paperwork for [place] papers filled out. Pt may return to work on Friday, Feb 23, 2022 Related to Gastroparesis due to DM --Resume Reglan. Let jerome written for pt's job. Return to clinic in 1 wk for re evaluation Related to Gastroparesis due to DM Uncontrolled current ly. Pt able to eat food yesterday. Has not eaten today. Related to Type 2 diabetes mellitus with hyperglycemia, without long-term current use of insulin Improved. Related to Acute viral syndrome Controlled. On Reglan as needed Related to Gastroparesis due to DM Up to date with pap test. Pap completed this summer Related to Health care maintenance No abdominal pain. G I issues much improved since surgery and stopping Ozempic Related to S/P cholecystectomy Your blood glucose w as high in clinic today. Pt admits to eating candy and having juice prior to coming today. Your Diabetes is well controlled. Your most recent A1c is 6.7. Goal for your fasting blood glucose (BG) is less than 130. 2 hours after eating, your BG goal is less than 180. Continue your medications. Eat less processed sugars and fat--Off Ozempic. Pt stopped on her own. Please schedule your eye exam BONNIE Related to Type 2 diabetes mellitus with hyperglycemia, without long-term current use of insulin Hemoglobin A1C drawn today. We will adjust your diabetic medicines if needed. Follow up in 3 months for routine visit. Related to Controlled type 2 diabetes mellitus with other circulatory complication, without long-term current use of insulin Disease process Call Surgical Meredith garcia and make an appointment for gallbladder evaluation due to abnormal HIDA scan-The phone number is [phone] Related to Upper abdominal pain Continue with the na usea medication as neededEat small frequent mealsFollow up in 2-[address] Garner Related to Nausea and vomiting, unspecified vomiting type Hemoglobin A1C drawn today. Continue current dose of Ozempic and Glipizide. We will be in contact if we need to adjust your medications. Watch your portion size and number carbohydrates because this can cause an increase in your blood sugars. Related to Type 2 diabetes mellitus without complication, without long-term current use of insulin Disease process Routine diabetic blo od work drawn today. We will be in contact with the results. Continue taking Glipizide daily. Keep your blood sugars at a target level of less than 130. Eat a good diet that spreads carbohydrates throughout the day. Aim for 30 minutes of moderate intensity exercise at least 4-5 days a week. Take your medicines as prescribed. Do not smoke. Keep your cholesterol and blood pressure at a normal level.Status: Able to self-manage condition. Goals: Your goal is to work on healthy eating habits Related to Type 2 diabetes mellitus without complication, without long-term current use of insulin Physical exam comple sandra today.Routine blood work drawn. Reach and stay at a healthy weight.Get at least 30 minutes of physical activity on most days of the week. Walking is a good choice. Do not smoke or allow others to smoke around you. Talk to your doctor about whether you have any risk factors for sexually transmitted infections (STIs). Use control if you do not want to have children at this time.Always wear sunscreen on exposed skin.See a dentist one or two times a year for checkups and to have your teeth cleaned. Wear a seat belt in the car. Drink alcohol in moderation, if at all. That means no more than 2 drinks a day for men and 1 drink a day for women. Related to Routine physical examination Influenza vaccine administered ryann bruce Related to Influenza vaccine administered Disease process We are getting you s cheduled for a HIDA scan this is a test to check the function of your gallbladderOur office will call you with the results Related to Abnormal gallbladder ultrasound Take Reglan 3 times per day before meals and at bedtimeEat small frequent meals Related to Nausea and vomiting, intractability of vomiting not specified, unspecified vomiting type We are getting you s cheduled for an EGD (upper endoscopy), this will allow the doctor to examine your esophagus and stomachFurther recommendations to follow after the procedureTake the Phenergan as needed-If you need a refill contact the officeI am starting you on omeprazole-take this medication daily 30 minutes before your 1st meal Related to Nausea and vomiting, intractability of vomiting not specified, unspecified vomiting type Clinically stable. I t is very important to maintain normal or near normal blood sugars. During an episode is essential to stay hydrated to prevent dehydration. Take Promethazine as needed for nausea. Advance diet slowly to a regular diet. Include a protein drink into your daily nutrition for the next week or so. Related to Diabetic gastroparesis See handout attached. Related to Gastroparesis Disease process This is an urgent ma tter.Patient transported to [facility]. Related to Nausea and vomiting, intractability of vomiting not specified, unspecified vomiting type Disease process Good job with lia ng your diabetes Mlea. A1C was drawn today. Continue taking Glipizide daily. Keep your blood sugars at a target level of less than 130. Eat a good diet that spreads carbohydrates throughout the day. Aim for 30 minutes of moderate intensity exercise at least 4-5 days a week. Take your medicines as prescribed. Do not smoke. Keep your cholesterol and blood pressure at a normal level. Related to Type 2 diabetes mellitus without complication, without long-term current use of insulin Disease process Your diabetes is wel l controlled at this time Discontinue Ozempic after this week's injection Check Blood sugars twice daily. Once in morning before eating and 1-2 hours after dinner.It is important to take your medication everyday. Cut back on eating foods that are high in sugar. Watching your portion sizes are important.Contact the office with any issues or episodes of hyperglycemia Related to Type 2 diabetes mellitus with hypoglycemia without coma, without long-term current use of insulin Disease process Hemoglobin A1C due a t next office visit. You are due for your diabetic eye exam. Schedule EYE EXAM sooner than later. Continue current medicines. Keep your blood sugars at a target level of less than 130. Eat a good diet that spreads carbohydrates throughout the day. Aim for 30 minutes of moderate intensity exercise at least 4-5 days a week. Keep your cholesterol and blood pressure at a normal level.Status: Able to self-manage condition. Related to Type 2 diab with mod nonp rtnop without macular edema, bi Disease process Hemoglobin A1C drawn today. Continue checking your blood sugars daily. Continue taking Glipizide and Ozempic as ordered.. Related to Type 2 diabetes mellitus without complication, without long-term current use of insulin Disease process Assessments Type Assessment Date No Information Patient Care Teams Name Effective Dates (start - stop) Status Members No Information
--- OUTSIDE RECORDS SUMMARY | 2024-04-30 11:34 | XMS_ITS | Referral Summary ---
Author Organization [id number] [place] Address [address] [place] [id number] Care Team Providers Care Multimedia Production Assistant Name Role Phone Kobi Martinez MD, Rory [...] without diagnosis of hypertension 04/17/2020 Diverticulosis 04/17/2020 Social History Tobacco Use Types Packs/Day Years [...] on file Legal Sex Female 12:42 AM TIN WORKER Gender Identity Not on file Sexual Orientation Not on file Last Filed Vital Signs Vital Sign Reading Time Taken Comments Blood Pressure 114/79 03/17/2023 6:55 PM TIN WORKER Pulse 106 03/17/2023 6:55 PM TIN WORKER Temperature 36.1 C (97 F) 03/17/2023 8:25 AM TIN WORKER Respiratory Rate 16 03/17/2023 6:55 PM TIN WORKER Oxygen Saturation 100% 03/17/2023 6:55 PM TIN WORKER Inhaled Oxygen Concentration - - Weight 83.9 kg (185 lb) 03/17/2023 8:25 AM TIN WORKER Height 160 cm (5' 3 ) 03/17/2023 8:25 AM TIN WORKER Body Mass Index 32.77 03/17/2023 8:25 AM TIN WORKER Plan of Treatment Not on file Insurance CT [address] [place] [address] [id number] [place] [phone] [employer] ACCESS CHOICE [employer] ACCESS CHOICE Care Teams Multimedia Production Assistant Relationship Specialty Start Date End Date Rory Peace Jr., MD [address] [place] [address] PCP - General Internal Medicine 11/10/19
--- OUTSIDE RECORDS SUMMARY | 2024-04-30 11:34 | XMS_ITS | Clinical Summary ---
Author Organization [facility] Address [address] [place] [address] Phone Care Team Providers Care Superintendent Distribution Name Role Phone Kobi Martinez MD, Rory Dc Primary Care Provid er Allergies Active Allergy Reactions Criticality Noted Date Comments Sulfamethoxazole-Trimethop rim Nausea and Vomiting,Itching,Hives High 05/01/2016 Medications GLIPIZIDE ORAL Take by mouth. Active ondansetron (ZOFRAN) 4 mg Tablet Take 1 Tablet (4 mg) by mouth every 8 hours as needed for Nausea. 10 Tablet 06/01/2020 3:23 PM CDT 06/01/2020 Active pantoprazole (PROTONIX) 40 mg Tablet, Delayed Release (E.C.) Take 1 Tablet (40 mg) by mouth daily. 14 Tablet 06/01/2020 3:23 PM CDT 06/01/2020 Active Active Problems Problem Noted Date Diagnosed Date Hyperglycemia 05/12/2020 Diverticulosis 04/17/2020 Elevated blood-pressure read ing without diagnosis of hypertension 04/17/2020 Nausea and vomiting 04/17/2020 Right ovarian without intrauterine pre gnancy 12/09/2019 Subserous leiomyoma of uterus 12/09/2019 Social History Tobacco Use Types Packs/Day Years Used Date Smoking Tobacco: Never Smokeless Tobacco: Never Alcohol Use Standard Drinks/Week Comments Never 0 (1 standard drink = 0.6 oz pur e alcohol) Comments No Sex and Gender Information Value Date Recorded Sex Assigned at Not on file Legal Sex Female 11:04 AM CDT Gender Identity Not on file Sexual Orientation Not on file Last Filed Vital Signs Vital Sign Reading Time Taken Comments Blood Pressure 119/91 06/01/2020 2:56 PM CDT Pulse 95 06/01/2020 1:00 PM CDT Temperature 37 C (98.6 F) 06/01/2020 11:26 AM CDT Respiratory Rate 18 06/01/2020 2:56 PM CDT Oxygen Saturation 98% 06/01/2020 2:56 PM CDT Inhaled Oxygen Concentration - - Weight 64 kg (141 lb) 06/01/2020 11:26 AM CDT Height 154.9 cm (5' 1 ) 06/01/2020 11:26 AM CDT Body Mass Index 26.64 06/01/2020 11:26 AM CDT Plan of Treatment Health Maintenance Due Date Last Done Comments DTAP/TDAP/TD VACCINES (1 - Tdap) 10/13/1999 HEPATITIS B VACCINES (1 of 3 - 19+ 3-dose series) 10/13/1999 CERVICAL CANCER SCREENING 2010 BREAST CANCER SCREENING 2020 INFLUENZA VACCINE (#1) 2023 HPV VACCINES Aged Out No longer eligi ble based on patient's age to complete this topic PNEUMOCOCCAL VACCINE 0-64 YEARS Aged Out No longer eligible based on patient's age to complete this topic Insurance [employer] Care Teams Superintendent Distribution Relationship Specialty Start Date End Date Rory Peace Jr., MD [address] [place] [address] PCP - General Internal Medicine 06/01/20
--- OUTSIDE RECORDS SUMMARY | 2024-04-30 11:34 | XMS_ITS | Clinical Summary ---
Author Organization [facility] Address [address] [place] [address] Care Team Providers Care Felt Coverer Name Role Phone Macy Contreras MD Primary Care Provider [phone] Source Comments [facility],non-owned Affiliates and Associated Physician Practices is amultiple site organization consisting of ambulatory clinics and hospital sitesin [place], [place], [place] and [place]. This disclosure is being madepursuant to the Care Everywhere program and may not contain all information available regarding this patient. Last updated 17.[facility] Allergies Active Allergy Reactions Criticality Noted Date [...] Right ovarian without intrauterine pre gnancy 12/09/2019 Family History Medical History Relation Name Comments Diabetes - Type 2 Brother Hypertension Brother Diabetes - Type 2 Father Hypertension Father Diabetes - Type 2 Maternal Grandmother Diabetes - Type 2 Mother Hypertension Mother Cancer - Breast Other Diabetes - Type 2 Sister Hypertension Sister Relation Name Status Comments Brother Father Maternal Grandmother Mother Other Sister Social History Tobacco Use Types Packs/Day [...] Comments Blood Pressure 124/81 03/20/2023 7:31 AM BLANKER PRESS OPERATOR Pulse 97 03/20/2023 7:31 AM BLANKER PRESS OPERATOR Temperature 36.3 C (97.3 F) 03/20/2023 7:31 AM BLANKER PRESS OPERATOR Respiratory Rate 18 03/20/2023 7:31 AM BLANKER PRESS OPERATOR Oxygen Saturation 99% 03/20/2023 7:31 AM BLANKER PRESS OPERATOR Inhaled Oxygen Concentration - - Weight 83.9 kg (185 lb) 03/20/2023 1:08 AM BLANKER PRESS OPERATOR Height 160 cm (5' 3 ) 03/20/2023 1:08 AM BLANKER PRESS OPERATOR Body Mass Index 32.77 03/20/2023 1:08 AM BLANKER PRESS OPERATOR Plan of Treatment Health Maintenance Due Date Last Done Comments HIV SCREENING 10/13/1995 HEPATITIS C SCREENING 10/08/1998 DTAP/TDAP/TD VACCINES (1 - Tdap) 10/13/1999 HEPATITIS B VACCINE (1 of 3 - 19+ 3-dose series) 10/13/1999 PNEUMOCOCCAL VACCINE (1 of 2 - PCV) 10/13/1999 DIABETES-STATIN 2020 DIABETES RETINOPATHY SCREENING 11/28/2022 08/04/2020 DIABETES-FOOT EXAM WITH MONOFILAMENT 11/28/2022 MAMMOGRAM 04/10/2023 04/10/2021 DIABETES-HGB A1C 09/18/2023 03/20/2023, , 12/04/2022, Additional history exists COVID-19 VACCINE ( - season) 2023 11/21/2020, 10/24/2020 INFLUENZA VACCINE (#1) 2023 , 01/14/2022, 04/06/2021 DEPRESSION SCREENING 03/10/2024 DIABETES - URINE PROTEIN SCREENING 03/10/2024 03/22/2022, 03/22/2022 DIABETES-SERUM CREATININE 03/20/20242023, 03/19/2023, 03/19/2023, Additional history exists PAP with HPV 12/07/2024 12/08/2019 ZOSTER VACCINE (1 of 2) 2030 HIB VACCINE Aged Out No longer eligi ble based on patient's age to complete this topic HPV VACCINE Aged Out No longer eligi ble based on patient's age to complete this topic MENINGOCOCCAL (Group B) VACCINE Aged Out No longer eligible based on patient's age to complete this topic MENINGOCOCCAL VACCINE Aged Out No shari maureen eligible based on patient's age to complete this topic Procedures Procedure Name Priority Date/Time Associated Diagnosis Comments HEMOGLOBIN A1C STAT 03/20/2023 10:46 AM BLANKER PRESS OPERATOR 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) BASIC METABOLIC PANEL (CALCIUM TOTAL) STAT 03/20/2023 4:21 AM BLANKER PRESS OPERATOR Nausea and vomiting, unspecified vomiting type MAMMO BILAT SCREENING W TRISTEN Routine 04/10/2021 9:23 AM BLANKER PRESS OPERATOR Breast screening PAP IG LB+CT+NG+TV+HPV APTIMA RFLX 16,18/45 Routine 12/08/2019 4:03 PM CDT Positive test (HCC) from Last 3 Months or Most Recently Relevant to Health Maintenance Results * (ABNORMAL) HEMOGLOBIN A1C (03/20/2023 10:46 AM BLANKER PRESS OPERATOR) Hemoglobin A1c 7.3(H) <5.7 % 03/20/2023 10:59 AM BLANKER PRESS OPERATOR [facility] Estimated Average Glucose 163 mg/dL 03/20/2023 10:59 AM BLANKER PRESS OPERATOR [facility] Blood BLOOD SPECIMEN / Unknown Venipuncture / Unknown 03/20/2023 10:46 AM BLANKER PRESS OPERATOR 03/20/2023 10:49 AM BLANKER PRESS OPERATOR Narrative [facility] - 03/20/2023 10:59 AM BLANKER PRESS OPERATOR HbA1c Interpretation: Normal: < 5.7% Pre-diabetes: 5.7-6.4% [...] National Glycohemoglobin Standardization Program (NGSP) certified method. Kriby Fernández MD LAB - CHEMISTRY ORDERABLES Performing Organization Address City/State/[facility] Co de Phone Number [facility] [address] [place] [address] * (ABNORMAL) BASIC METABOLIC PANEL (CALCIUM TOTAL) (03/20/2023 4:21 AM BLANKER PRESS OPERATOR) Glucose 208(H) 70 - 105 mg/dL 03/20/2023 4:57 AM [facility] Sodium 135(L) 136 - 145 mmol/L 03/20/2023 4:57 AM [facility] Potassium 3.5 3.5 - 5.1 mmol/L 03/20/2023 4:57 AM [facility] Chloride 106 98 - 107 mmol/L 03/20/2023 4:57 AM [facility] CO2 16(L) 22 - 29 mmol/L 03/20/2023 4:57 AM [facility] Calcium 8.3(L) 8.4 - 10.4 mg/dL 03/20/2023 4:57 AM [facility] Anion Gap 13 6 - 16 mmol/L 03/20/2023 4:57 AM [facility] BUN 8 5.3 - 18.7 mg/dL 03/20/2023 4:57 AM [facility] Creatinine 0.77 0.57 - 1.11 mg/dL 03/20/2023 4:57 AM BLANKER PRESS OPERATOR [facility] eGFR by CKD-EPI >90 >=90 mL/min/1.7 3 m2 03/20/2023 4:57 AM BLANKER PRESS OPERATOR [facility] Blood BLOOD SPECIMEN / Unknown Venipuncture / Unknown 03/20/2023 4:21 AM BLANKER PRESS OPERATOR 03/20/2023 4:27 AM BLANKER PRESS OPERATOR Rocio Rai MD LAB - CHEMISTRY OSCAR NUÑEZ [facility] [address] [place] [address] * MAMMO BILAT SCREENING W TRISTEN (04/10/2021 9:23 AM BLANKER PRESS OPERATOR) Anatomical Region Laterality Modality Breast Bilateral Mammography 04/10/2021 10:5 3 AM BLANKER PRESS OPERATOR Impressions 04/10/2021 10:54 AM BLANKER PRESS OPERATOR There is no mammographic evidence of malignancy. OVERALL FINAL ASSESSMENT: BI-RADS CATEGORY 1: NEGATIVE. Annual screening mammography is recommended. *Reading Radiologist: Mary Dougherty on 04/10/2021 at 10:54 AM Narrative 04/10/2021 10:54 AM BLANKER PRESS OPERATOR EXAMINATION: BILATERAL DIGITAL SCREENING MAMMOGRAM AND BILATERAL [...] Z32.01 Z20.2 Performed by [facility] ACCOUNT BILL Comment:Meghana Gutierrez chnologist (ASCP) Comment . [facility] ACCOUNT BILL [...] [facility] ACCOUNT BILL Comment: The Thin Prep(R) Lamination Assembler was unable to read this specimen. Therefore [...] Resulting Agency Comment Lab Testing performed at: [address] [id number] Jacklyn Galaviz DO LAB - PATHOLOGY/CYTO LOGY ORDERABLES [facility] ACCOUNT BILL [id number] [place] [address] from Last 3 Months or Most Recently Relevant to Health Maintenance Advance Directives * Full Code (Latest Code Status on File) Date Activated Date Inactivated Comments 03/19/2023 9:26 PM 03/20/2023 5:34 PM * Full Code Date Activated Date Inactivated Comments 11/28/2022 9:40 PM 12/02/2022 12:02 PM * Full Code Date Activated Date Inactivated Comments 08/14/2021 2:27 PM 08/16/2021 6:16 PM Care Teams Felt Coverer Relationship Specialty Start Date End Date Macy Contreras MD [address] [place] [address] PCP - General Internal Medicine 09/12/21
--- OUTSIDE RECORDS SUMMARY | 2024-04-30 11:34 | XMS_ITS | Patient Health Summary ---
Author Organization [facility] Address [address] [place] [address] Care Team Providers Care Graphite Grinder Name Role Phone Macy Contreras MD Primary Care Provider [phone] Note from [facility],non-owned Affiliates and Associated Physician Practices is amultiple site organization consisting of ambulatory clinics and hospital sitesin [place], [place], [place] and [place]. This disclosure is being madepursuant to the Care Everywhere program and may not contain all information available regarding this patient. Last updated 17.[facility] Allergies * Sulfamethoxazole W-Trimethoprim(Urticaria,Itching) -Medium Criticality Medications * Be aware that medications may not be up to date on this document. Alwaysverify current medications with the patient. * glipiZIDE (GLUCOTROL) 10 MG tablet(Started 05/21/2021) Take 1 (one) tablet by mouth 2 times daily with morning and evening meal * insulin glargine-yfgn (Semglee, yfgn,) pen(Started 12/02/2022) Inject 20 (twenty) Units subcutaneously at bedtime 2 refills by 12/02/2023 * insulin pen needle (Novofine) 32G X 6 MM MISC(Started 12/02/2022) 1 (one) Each by Injection route once daily 2 refills by 12/02/2023 * Blood Glucose Monitoring Suppl (Blood Glucose Monitor System) w/Device KIT (Started 12/02/2022) Use 1 Each as directed * lancets(Started 12/02/2022) Use 1 (one) Each once daily 3 refills by 12/02/2023 * metoclopramide (Reglan) 10 MG tablet(Started 12/02/2022) Take 1 (one) tablet by mouth 3 times daily before meals * pantoprazole EC (Protonix) 40 MG tablet(Started 03/20/2023) Take 1 (one) tablet by mouth once daily Active Problems Problem Noted Date Diagnosed Date [...] Comments Blood Pressure 124/81 03/20/2023 7:31 AM [facility] Pulse 97 03/20/2023 7:31 AM [facility] Temperature 36.3 C (97.3 F) 03/20/2023 7:31 AM [facility] N[facility] Respiratory Rate 18 03/20/2023 7:31 AM [facility] Oxygen Saturation 99% 03/20/2023 7:31 AM [facility] Inhaled Oxygen Concentration - - Weight 83.9 kg (185 lb) 03/20/2023 1:08 AM [facility] N[facility] Height 160 cm (5' 3 ) 03/20/2023 1:08 AM [facility] Body Mass Index 32.77 03/20/2023 1:08 AM [facility] N[facility] Procedures * GLUCOSE - POINT OF CARE(Performed 03/20/2023) * HEMOGLOBIN A1C(Performed 03/20/2023) 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) * GLUCOSE - POINT OF CARE(Performed 03/20/2023) * BASIC METABOLIC PANEL (CALCIUM TOTAL)(Performed 03/20/2023) Performed for Nausea and vomiting, unspecified vomiting type * MAGNESIUM BLOOD(Performed 03/20/2023) Performed for Nausea and vomiting, unspecified vomiting type * GLUCOSE - POINT OF CARE(Performed 03/20/2023) * BASIC METABOLIC PANEL (CALCIUM TOTAL)(Performed 03/19/2023) * GLUCOSE - POINT OF CARE(Performed 03/19/2023) * GLUCOSE - POINT OF CARE(Performed 03/19/2023) * URINE MICROSCOPIC ONLY REFLEX TO CULTURE(Performed 03/19/2023) * URINE DRUG SCREEN IMMUNOASSAY(Performed 03/19/2023) * HCG URINE QUALITATIVE(Performed 03/19/2023) * URINALYSIS REFLEX MICROSCOPIC REFLEX CULTURE(Performed 03/19/2023) * HYDROXYBUTYRATE BETA(Performed 03/19/2023) * COMPREHENSIVE METABOLIC PANEL(Performed 03/19/2023) * CBC W AUTO DIFFERENTIAL(Performed 03/19/2023) * SARS-COV-2 (COVID-19) FLU A/B RSV PCR RAPID(Performed 03/19/2023) * CARDIAC EKG ORDER(Performed 12/03/2022) * CARDIAC EKG ORDER(Performed 12/02/2022) * GLUCOSE - POINT OF CARE(Performed 12/02/2022) * MAGNESIUM BLOOD(Performed 12/02/2022) Performed for Intractable vomiting, Hypokalemia * RENAL FUNCTION PANEL(Performed 12/02/2022) Performed for Intractable vomiting, Hypokalemia * CBC W/O DIFFERENTIAL(Performed 12/02/2022) Performed for Diabetic ketoacidosis without coma associated with type 1 diabetes mellitus (HCC) * GLUCOSE - POINT OF CARE(Performed 12/01/2022) * GLUCOSE - POINT OF CARE(Performed 12/01/2022) * GLUCOSE - POINT OF CARE(Performed 12/01/2022) * GLUCOSE - POINT OF CARE(Performed 12/01/2022) * MAGNESIUM BLOOD(Performed 12/01/2022) Performed for Intractable vomiting, Hypokalemia * RENAL FUNCTION PANEL(Performed 12/01/2022) Performed for Intractable vomiting, Hypokalemia * CBC W/O DIFFERENTIAL(Performed 12/01/2022) Performed for Diabetic ketoacidosis without coma associated with type 1 diabetes mellitus (HCC) * GLUCOSE - POINT OF CARE(Performed 11/30/2022) * GLUCOSE - POINT OF CARE(Performed 11/30/2022) * HCG URINE QUALITATIVE(Performed 11/30/2022) Performed for Intractable vomiting * GLUCOSE - POINT OF CARE(Performed 11/30/2022) * MAGNESIUM BLOOD(Performed 11/30/2022) Performed for Hypokalemia * RENAL FUNCTION PANEL(Performed 11/30/2022) Performed for Hypokalemia * GLUCOSE - POINT OF CARE(Performed 11/30/2022) * MAGNESIUM BLOOD(Performed 11/30/2022) Performed for Hypokalemia * CBC W/O DIFFERENTIAL(Performed 11/30/2022) Performed for Diabetic ketoacidosis without coma associated with type 1 diabetes mellitus (HCC) * BASIC METABOLIC PANEL (CALCIUM TOTAL)(Performed 11/30/2022) Performed for Diabetic ketoacidosis without coma associated with type 1 diabetes mellitus (HCC) * GLUCOSE - POINT OF CARE(Performed 11/29/2022) * HYDROXYBUTYRATE BETA(Performed 11/29/2022) Performed for Diabetic ketoacidosis without coma associated with type 1 diabetes mellitus (HCC) * MAGNESIUM BLOOD(Performed 11/29/2022) Performed for Diabetic ketoacidosis without coma associated with type 1 diabetes mellitus (HCC) * RENAL FUNCTION PANEL(Performed 11/29/2022) Performed for Diabetic ketoacidosis without coma associated with type 1 diabetes mellitus (HCC) * GLUCOSE - POINT OF CARE(Performed 11/29/2022) * XR ABDOMEN KUB PORTABLE(Performed 11/29/2022) Performed for Intractable vomiting * EKG 12-LEAD(Performed 11/29/2022) Performed for Intractable vomiting * GLUCOSE - POINT OF CARE(Performed 11/29/2022) * GLUCOSE - POINT OF CARE(Performed 11/29/2022) * GLUCOSE - POINT OF CARE(Performed 11/29/2022) * BLOOD GASES JOEY + COOX PANEL(Performed 11/29/2022) Performed for Diabetic ketoacidosis without coma associated with type 1 diabetes mellitus (HCC) * BASIC METABOLIC PANEL (CALCIUM TOTAL)(Performed 11/29/2022) Performed for Diabetic ketoacidosis without coma associated with type 1 diabetes mellitus (HCC) * GLUCOSE - POINT OF CARE(Performed 11/29/2022) * HEMOGLOBIN A1C(Performed 11/29/2022) * HYDROXYBUTYRATE BETA(Performed 11/29/2022) Performed for Diabetic ketoacidosis without coma associated with type 1 diabetes mellitus (HCC) * PHOSPHORUS BLOOD(Performed 11/29/2022) Performed for Diabetic ketoacidosis without coma associated with type 1 diabetes mellitus (HCC) * MAGNESIUM BLOOD(Performed 11/29/2022) Performed for Diabetic ketoacidosis without coma associated with type 1 diabetes mellitus (HCC) * CBC W/O DIFFERENTIAL(Performed 11/29/2022) Performed for Diabetic ketoacidosis without coma associated with type 1 diabetes mellitus (HCC) * BASIC METABOLIC PANEL (CALCIUM TOTAL)(Performed 11/29/2022) Performed for Diabetic ketoacidosis without coma associated with type 1 diabetes mellitus (HCC) * BLOOD GASES JOEY + COOX PANEL(Performed 11/29/2022) Performed for Diabetic ketoacidosis without coma associated with type 1 diabetes mellitus (HCC) * GLUCOSE - POINT OF CARE(Performed 11/28/2022) * XR CHEST 1VW PORTABLE(Performed 11/28/2022) Performed for Tachycardia * GLUCOSE - POINT OF CARE(Performed 11/28/2022) * BASIC METABOLIC PANEL (CALCIUM TOTAL)(Performed 11/28/2022) * LACTIC ACID BLOOD REFLEX TO REPEAT(Performed 11/28/2022) * GLUCOSE - POINT OF CARE(Performed 11/28/2022) * URINALYSIS W/MICROSCOPIC REFLEX TO CULTURE(Performed 11/28/2022) * CULTURE URINE(Performed 11/28/2022) * CULTURE URINE(Performed 11/28/2022) * LACTIC ACID REPEAT REFLEX(Performed 11/28/2022) * LACTIC ACID BLOOD REFLEX TO REPEAT(Performed 11/28/2022) * LIPASE BLOOD(Performed 11/28/2022) * PHOSPHORUS BLOOD(Performed 11/28/2022) * HYDROXYBUTYRATE BETA(Performed 11/28/2022) * BLOOD GASES JOEY + COOX PANEL(Performed 11/28/2022) * MAGNESIUM BLOOD(Performed 11/28/2022) * COMPREHENSIVE METABOLIC PANEL(Performed 11/28/2022) * CBC W AUTO DIFFERENTIAL(Performed 11/28/2022) * EKG 12-LEAD(Performed 11/28/2022) Performed for Tachycardia * GLUCOSE - POINT OF CARE(Performed 11/28/2022) * ANTI-MULLERIAN HORMONE(Performed 11/26/2021) Performed for Menorrhagia with regular cycle * HCG BETA BLOOD QUANTITATIVE(Performed 11/26/2021) Performed for Menorrhagia with regular cycle * PROLACTIN(Performed 11/26/2021) Performed for Menorrhagia with regular cycle * HEMOGLOBIN A1C(Performed 11/26/2021) Performed for Type 2 diabetes mellitus without complication, without long-term current use of insulin (HCC) * TSH+FREE T4+FREE T3(Performed 11/26/2021) Performed for Menorrhagia with regular cycle * CBC W AUTO DIFFERENTIAL(Performed 11/26/2021) Performed for Menorrhagia with regular cycle * LACTIC ACID BLOOD(Performed 09/18/2021) * CT ABDOMEN PELVIS W CONTRAST(Performed 09/18/2021) Performed for Abdominal pain, generalized * LACTIC ACID REPEAT REFLEX(Performed 09/18/2021) * MAGNESIUM BLOOD(Performed 09/18/2021) * LACTIC ACID BLOOD REFLEX TO REPEAT(Performed 09/18/2021) * LIPASE BLOOD(Performed 09/18/2021) * COMPREHENSIVE METABOLIC PANEL(Performed 09/18/2021) * CBC W AUTO DIFFERENTIAL(Performed 09/18/2021) * EKG 12-LEAD(Performed 09/18/2021) Performed for Abdominal pain, generalized * GLUCOSE - POINT OF CARE(Performed 09/13/2021) * ENDOTRACHEAL TUBE NOTE(Performed 09/13/2021) * PATHOLOGY TISSUE EXAM (STL)(Performed 09/13/2021) Performed for Hepatic steatosis * KY LAP,CHOLECYSTECTOMY(Performed 09/13/2021) * GLUCOSE - POINT OF CARE(Performed 09/13/2021) * HCG URINE QUALITATIVE(Performed 09/13/2021) Performed for Preop examination * GLUCOSE - POINT OF CARE(Performed 08/16/2021) * GLUCOSE - POINT OF CARE(Performed 08/16/2021) * GLUCOSE - POINT OF CARE(Performed 08/15/2021) * GLUCOSE - POINT OF CARE(Performed 08/15/2021) * GLUCOSE - POINT OF CARE(Performed 08/15/2021) * GLUCOSE - POINT OF CARE(Performed 08/15/2021) * IRON + TRANSFERRIN PANEL(Performed 08/15/2021) * BASIC METABOLIC PANEL (CALCIUM TOTAL)(Performed 08/15/2021) Performed for Nausea without vomiting * HEMOGLOBIN A1C(Performed 08/15/2021) * CBC W AUTO DIFFERENTIAL(Performed 08/15/2021) Performed for Nausea without vomiting * GLUCOSE - POINT OF CARE(Performed 08/14/2021) * GLUCOSE - POINT OF CARE(Performed 08/14/2021) * GLUCOSE - POINT OF CARE(Performed 08/14/2021) * CT ABDOMEN PELVIS W CONTRAST(Performed 08/14/2021) Performed for Nausea without vomiting * GLUCOSE - POINT OF CARE(Performed 08/14/2021) * GLUCOSE - POINT OF CARE(Performed 08/14/2021) * URINALYSIS REFLEX TO MICROSCOPIC NO CULTURE(Performed 08/14/2021) * HYDROXYBUTYRATE BETA(Performed 08/14/2021) * HCG BETA BLOOD QUANTITATIVE(Performed 08/14/2021) * LIPASE BLOOD(Performed 08/14/2021) * COMPREHENSIVE METABOLIC PANEL(Performed 08/14/2021) * CBC W AUTO DIFFERENTIAL(Performed 08/14/2021) * EKG 12-LEAD(Performed 08/14/2021) Performed for Nausea without vomiting * GLUCOSE - POINT OF CARE(Performed 08/14/2021) * MAMMO BILAT SCREENING W TRISTEN(Performed 04/10/2021) Performed for Breast screening * NM HEPATOBILIARY W EF(Performed 10/06/2020) Performed for Abnormal ultrasound of gallbladder * CT ABDOMEN PELVIS W CONTRAST(Performed 05/12/2020) Performed for Intractable vomiting with nausea, unspecified vomiting type * GLUCOSE - POINT OF CARE(Performed 05/12/2020) * GLUCOSE - POINT OF CARE(Performed 05/12/2020) * MAGNESIUM BLOOD(Performed 05/12/2020) * TROPONIN I(Performed 05/12/2020) * URINE MICROSCOPIC ONLY REFLEX TO CULTURE(Performed 05/12/2020) * URINALYSIS REFLEX MICROSCOPIC REFLEX CULTURE(Performed 05/12/2020) * CULTURE URINE(Performed 05/12/2020) * XR CHEST 1VW PORTABLE(Performed 05/12/2020) Performed for Intractable vomiting with nausea, unspecified vomiting type * BLOOD GASES JOEY (ISTAT)(Performed 05/12/2020) * BLOOD GASES VENOUS POCT(Performed 05/12/2020) * EKG 12-LEAD(Performed 05/12/2020) Performed for Intractable vomiting with nausea, unspecified vomiting type * TSH REFLEX FREE T4(Performed 05/12/2020) * LIPASE BLOOD(Performed 05/12/2020) * HCG BLOOD QUALITATIVE(Performed 05/12/2020) * HYDROXYBUTYRATE BETA(Performed 05/12/2020) * TROPONIN I(Performed 05/12/2020) * COMPREHENSIVE METABOLIC PANEL(Performed 05/12/2020) * CBC W AUTO DIFFERENTIAL(Performed 05/12/2020) * GLUCOSE - POINT OF CARE(Performed 05/12/2020) * PATHOLOGY/CYTOLOGY REPORT ORDER(Performed 12/13/2019) * APHERESIS/TRANSFUSION ORDER(Performed 12/13/2019) * GLUCOSE - POINT OF CARE(Performed 12/10/2019) * GLUCOSE - POINT OF CARE(Performed 12/10/2019) * CBC W AUTO DIFFERENTIAL(Performed 12/10/2019) 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) * GLUCOSE - POINT OF CARE(Performed 12/10/2019) * GLUCOSE - POINT OF CARE(Performed 12/09/2019) * GLUCOSE - POINT OF CARE(Performed 12/09/2019) * GLUCOSE - POINT OF CARE(Performed 12/09/2019) * GLUCOSE - POINT OF CARE(Performed 12/09/2019) * PATHOLOGY TISSUE EXAM (STL)(Performed 12/09/2019) Performed for Diagnosis unknown * ENDOTRACHEAL TUBE NOTE(Performed 12/09/2019) * BLOOD TYPE VERIFICATION(Performed 12/09/2019) * KY EXPLORATORY OF ABDOMEN(Performed 12/09/2019) * GLUCOSE - POINT OF CARE(Performed 12/09/2019) * TYPE + SCREEN PANEL(Performed 12/09/2019) 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) * CBC W AUTO DIFFERENTIAL(Performed 12/09/2019) 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) * US OB TRANSVAGINAL DOPPLER(Performed 12/09/2019) Performed for Positive test (HCC) * PAP IG LB+CT+NG+TV+HPV APTIMA RFLX 16,18/45(Performed 12/08/2019) Performed for Positive test ([facility]) * DRUG ABUSE URINE PANEL 7(Performed 12/08/2019) Performed for Positive test ([facility]) * CULTURE URINE(Performed 12/08/2019) Performed for Positive test ([facility]) * HCG URINE QUALITATIVE - POINT OF CARE (AMB) STL(Performed 12/08/2019) Performed for Positive test ([facility]) * CARDIAC EKG ORDER(Performed 09/21/2019) * D-DIMER(Performed 09/14/2019) * XR CHEST 1VW PORTABLE(Performed 09/14/2019) Performed for SOB (shortness of breath) * TROPONIN I(Performed 09/14/2019) * COMPREHENSIVE METABOLIC PANEL(Performed 09/14/2019) * HCG URINE QUALITATIVE - POCT (IP) INTERFACED(Performed 09/14/2019) * HCG URINE QUAL POCT NOTIFICATION(Performed 09/14/2019) * B-TYPE NATRIURETIC PEPTIDE(Performed 09/13/2019) * TROPONIN I(Performed 09/13/2019) * CBC W AUTO DIFFERENTIAL(Performed 09/13/2019) * EKG 12-LEAD(Performed 09/13/2019) Performed for SOB (shortness of breath) * CT NECK SOFT TISSUE W CONT(Performed 07/08/2016) Performed for Cellulitis and abscess of neck * LACTIC ACID BLOOD(Performed 07/08/2016) * HCG URINE QUALITATIVE - POINT OF CARE(Performed 07/08/2016) * LACTIC ACID BLOOD(Performed 07/08/2016) * COMPREHENSIVE METABOLIC PANEL(Performed 07/08/2016) * CBC W AUTO DIFFERENTIAL(Performed 07/08/2016) * COMPREHENSIVE METABOLIC PANEL(Performed 05/01/2016) * CBC W AUTO DIFFERENTIAL(Performed 05/01/2016) Results * (ABNORMAL) GLUCOSE - POINT OF CARE (03/20/2023 11:36 AM [facility]) Only the most recent of49 resultswithin the time period is included. Glucose WB/POC 294(H) 70 - 106 mg/dL 03/20/2023 11:37 AM [facility] Specimen Type Cap Fingerstick 2023 11:37 AM [facility] Blood BLOOD SPECIMEN / Unknown 03/20/2023 11:36 AM [facility] N[facility] 03/20/2023 11:37 AM [facility] N[facility] Kirby Fernández MD LAB - POINT OF CARE ORDERABLES Performing Organization Address City/[facility]/ZIP Co de Phone Number [facility] [address] [place] [address] * (ABNORMAL) HEMOGLOBIN A1C (03/20/2023 10:46 AM [facility]) Only the most recent of4 resultswithin the time period is included. Hemoglobin A1c 7.3(H) <5.7 % 03/20/2023 10:59 AM [facility] NURSE [facility] Estimated Average Glucose 163 mg/dL 03/20/2023 10:59 AM [facility] NURSE [facility] Blood BLOOD SPECIMEN / Unknown Venipuncture / Unknown 03/20/2023 10:46 AM [facility] N[facility] 03/20/2023 10:49 AM [facility] N[facility] Narrative [facility] - 03/20/2023 10:59 AM [facility] N[facility]SE HbA1c Interpretation: Normal: < 5.7% Pre-diabetes: 5.7-6.4% [...] Kirby Fernández MD LAB - CHEMISTRY ORDERABLES [facility] [address] [place] [address] * (ABNORMAL) BASIC METABOLIC PANEL (CALCIUM TOTAL) (03/20/2023 4:21 AM [facility] NURSE) Only the most recent of7 resultswithin the time period is included. Glucose 208(H) 70 - 105 mg/dL 03/20/2023 4:57 AM [facility] Sodium 135(L) 136 - 145 mmol/L 03/20/2023 4:57 AM [facility] Potassium 3.5 3.5 - 5.1 mmol/L 03/20/2023 4:57 AM [facility] Chloride 106 98 - 107 mmol/L 03/20/2023 4:57 AM [facility] CO2 16(L) 22 - 29 mmol/L 03/20/2023 4:57 AM [facility] Calcium 8.3(L) 8.4 - 10.4 mg/dL 03/20/2023 4:57 AM [facility] Anion Gap 13 6 - 16 mmol/L 03/20/2023 4:57 AM [facility] BUN 8 5.3 - 18.7 mg/dL 03/20/2023 4:57 AM [facility] Creatinine 0.77 0.57 - 1.11 mg/dL 03/20/2023 4:57 AM [facility] eGFR by CKD-EPI >90 >=90 mL/min/1.7 3 m2 03/20/2023 4:57 AM [facility] Blood BLOOD SPECIMEN / Unknown Venipuncture / Unknown 03/20/2023 4:21 AM [facility] 03/20/2023 4:27 AM [facility] Rocio Rai MD LAB - CHEMISTRY [facility] NU[facility] Organization Address City/State/ZIP Co de Phone Number [facility] [address] [place] [address] * MAGNESIUM BLOOD (03/20/2023 4:21 AM [facility]) Only the most recent of10 resultswithin the time period is included. Magnesium 1.8 1.6 - 2.6 mg/dL 03/20/2023 4:57 AM [facility] NURSE [facility] Blood BLOOD SPECIMEN / Unknown Venipuncture / Unknown 03/20/2023 4:21 AM [facility] 03/20/2023 4:27 AM [facility] Rocio Rai MD LAB - CHEMISTRY [place]SC[place] NUÑEZ Performing Organization Address [facility] Co de Phone Number [facility] [address] [place] [address] * (ABNORMAL) URINE MICROSCOPIC ONLY REFLEX TO CULTURE (03/19/2023 4:13 PM [facility]) Only the most recent of2 resultswithin the time period is included. Reflex Status Culture not indicated 03/19/2023 4:50 PM [facility] NURSE [facility] RBC UA 0-2 0 - 5 # /hpf 03/19/2023 4:50 PM [facility] NURSE [facility] WBC UA 0-5 0 - 5 # /hpf 03/19/2023 4:50 PM [facility] NUR[facility] Bacteria UA None Seen None Seen 03/19/2023 4:50 PM [facility] NUR[facility] Squamous Epithelial Cells 0-2 0 - 5 /hpf 03/19/2023 4:50 PM [facility] NURSE [facility] Mucus UA 1+ /LPF 03/19/2023 4:50 PM [facility] NUR[facility] Hyaline Casts 6-10(A) 0 - 2 /LPF 03/19/2023 4:50 PM [facility] NURSE [facility] Urine URINE SPECIMEN OBTAINED BY CLEAN CATCH PROCEDURE / Unknown Collection / Unknown 03/19/2023 4:13 PM [facility] N[facility] 03/19/2023 4:35 PM [facility] N[facility] Narrative [facility] - 03/19/2023 4:50 PM [facility] NURSE Altagracia Quesada [employer] LAB - URIN ALYSIS ORDERABLES Performing Organization Address [facility]/ZIP Co de Phone Number [facility] [address] [place], [place] [id number] * (ABNORMAL) URINALYSIS REFLEX MICROSCOPIC REFLEX CULTURE (03/19/2023 4:13 PM [facility]) Only the most recent of2 resultswithin the time period is included. Color UA Yellow Straw, Yellow 03/19/2023 4:49 PM [facility] NURSE [facility] Clarity UA Clear Clear 03/19/2023 4:49 PM [facility] NURSE [facility] Glucose UA 3+(A) Negative 03/19/2023 4:49 PM [facility] NUR[facility] Bilirubin UA Negative Negative 03/19/2023 4:49 PM [facility] NUR[facility] Ketone UA 2+(A) Negative 03/19/2023 4:49 PM [facility] NURSE [facility] Specific [place] UA 1.031(H) 1.005 - 1.030 03/19/2023 4:49 PM [facility] NURSE [facility] Blood UA 2+(A) Negative 03/19/2023 4:49 PM [facility] NURSE [facility] pH UA 6.0 5.0 - 8.0 pH 03/19/2023 4:49 PM [facility] NURSE [facility] Protein UA 2+(A) Negative 03/19/2023 4:49 PM [facility] NURSE [facility] Urobilinogen UA Negative Negative mg/dL 03/19/2023 4:49 PM [facility] NURSE [facility] Nitrite UA Negative Negative 03/19/2023 4:49 PM [facility] NURSE [facility] Leukocyte UA Negative Negative 03/19/2023 4:49 PM [facility] NURSE [facility] Urine Microscopy Urine microscopy to follow 03/19/2023 4:49 PM [facility] NURSE [facility] Reflex Status Culture not indicated 03/19/2023 4:49 PM [facility] NURSE [facility] Urine URINE SPECIMEN OBTAINED BY CLEAN CATCH PROCEDURE / Unknown Collection / Unknown 03/19/2023 4:13 PM [facility] NURSE 03/19/2023 4:35 PM [facility] NURSE Narrative [facility] - 03/19/2023 4:49 PM [facility]ON[facility]ENS[facility]ARE [facility] NURSE Altagracia Quesada [facility] - URIN ALYSIS ORDERABLES [facility] [id number] [place] [address] * HCG URINE QUALITATIVE (03/19/2023 4:13 PM [facility] NURSE) Only the most recent of3 resultswithin the time period is included. hCG Qualitative Urine Negative Negative 03/19/2023 4:48 PM [facility]ONATAL INTENSIVE CARE UN[facility] NURSE [facility] Urine URINE / Unknown Collection / Unknown 03/19/2023 4:13 PM [facility] NURSE 03/19/2023 4:35 PM [facility] NURSE Narrative [facility] - 03/19/2023 4:48 PM [facility] NURSE Specimens containing human anti-mouse antibodies may exhibit false positive or false negative results. If qualitative interpretation is inconsistent with clinical evaluation, consider confirmation by an alternative hCG method. Altagracia Keren RadhaKellyArmijo [facility] - URIN ALYSIS ORDERABLES [facility] [id number] [place] [address] * URINE DRUG SCREEN IMMUNOASSAY (03/19/2023 4:13 PM [facility] NURSE) [facility] Amphetamines Screen Urine Not detected Not detected 03/19/2023 5:07 PM [facility] Barbiturates Screen Urine Not detected Not detected 03/19/2023 5:07 PM [facility] Benzodiazepines Screen Urine Not detected Not detected 03/19/2023 5:07 PM [facility] Cannabinoids Screen Urine Not detected Not detected 03/19/2023 5:07 PM [facility] Cocaine Screen Urine Not detected Not detected 03/19/2023 5:07 PM [facility] Fentanyl Urine Not detected Not detected 03/19/2023 5:07 PM [facility] Methadone Screen Urine Not detected Not detected 03/19/2023 5:07 PM [facility] LABORATORY Opiate Screen Urine Not detected Not detected 03/19/2023 5:07 PM [facility] Phencyclidine Screen Urine Not detected Not detected 03/19/2023 5:07 PM [facility] Urine URINE / Unknown Collection / Unknown 03/19/2023 4:13 PM [facility] N[facility] 03/19/2023 4:35 PM [facility] N[facility] Narrative [facility] - 03/19/2023 5:07 PM [facility] NURSE This drug screen is designed for MEDICAL purposes only. It is not to be used for legal purposes, including but not limited to worker's comp, police investigations, occupational issues, child custody, etc. Any positive result is only presumptive and must be confirmed with a separate confirmatory test ordered by the physician. Drug Screening Test Cutoff Values: AMPHETAMINES 1000 ng/mL BARBITURATES 200 ng/mL BENZODIAZEPINES 200 ng/mL CANNABINOIDS(THC) 50 ng/mL COCAINE 300 ng/mL FENTANYL 1 ng/mL METHADONE 300 ng/mL OPIATES 300 ng/mL PHENCYCLIDINE(PCP) 25 ng/mL Altagracia Quesada [facility] - URIN E CHEMISTRY ORDERABLES Performing Organization Address [facility] de Phone Number [facility] [address] [place] [phone] * (ABNORMAL) HYDROXYBUTYRATE BETA (03/19/2023 4:08 PM [facility] N[facility]SE) Only the most recent of6 resultswithin the time period is included. [facility] Beta-Hydroxybu tyrate 4.09(H) <0.50 mmol/L 03/19/2023 4:31 PM [facility] NURSE [facility] Blood BLOOD SPECIMEN / Unknown Venipuncture / Unknown 03/19/2023 4:08 PM [facility] NURSE 03/19/2023 4:14 PM [facility] NURSE Narrative [facility] - 03/19/2023 4:31 PM [facility] NURSE Results >1.5 mmol/L may be indicative of diabetic ketoacidosis. Use in conjunction with Serum Glucose levels. Altagracia Quesada [facility] - CHEM ISTRY ORDERABLES Performing Organization Address [facility] Phone Number [facility] [id number] [place] [phone] * (ABNORMAL) CBC W AUTO DIFFERENTIAL (03/19/2023 4:08 PM [facility] NURSE) Only the most recent of12 resultswithin the time period is included. Pathologist [facility] WBC 8.4 4.0 - 10.7 x10E9/L 03/19/2023 4:16 PM [facility] NURSE [facility] RBC Count 5.36(H) 3.90 - 5.20 x10E12/L 03/19/2023 4:16 PM [facility] NURSE [facility] Hemoglobin 14.4 11.9 - 15.8 g/dL 03/19/2023 4:16 PM [facility] NURSE [facility] Hematocrit 40.7 34.8 - 46.1 % 03/19/2023 4:16 PM [facility] NURSE [facility] MCV 75.9(L) 80.0 - 98.0 fL 03/19/2023 4:16 PM [facility] MCH 26.9 26.7 - 33.6 pg 03/19/2023 4:16 PM [facility] MCHC 35.4 31.7 - 36.3 g/dL 03/19/2023 4:16 PM [facility] RDW-CV 14.1 11.3 - 14.8 % 03/19/2023 4:16 PM [facility] Platelet Count 425(H) 150 - 420 x10E9/L 03/19/2023 4:16 PM [facility] MPV 9.4 7.8 - 11.4 fL 03/19/2023 4:16 PM [facility] Neutrophil % 54.3 41.0 - 74.0 % 03/19/2023 4:16 PM [facility] Lymphocyte % 37.3 17.0 - 47.0 % 03/19/2023 4:16 PM [facility] Monocyte % 7.0 3.0 - 11.0 % 03/19/2023 4:16 PM [facility] Eosinophil % 0.5 0.0 - 7.0 % 03/19/2023 4:16 PM [facility] Basophil % 0.7 0.0 - 1.6 % 03/19/2023 4:16 PM [facility] Immature Granulocytes % 0.2 0.0 - 1.0 % 03/19/2023 4:16 PM [facility] Neutrophil Absolute 4.54 1.60 - 7.50 x10E9/L 03/19/2023 4:16 PM [facility] Lymphocyte Absolute 3.12 1.00 - 4.40 x10E9/L 03/19/2023 4:16 PM [facility] Monocyte Absolute 0.59 0.15 - 1.00 x10E9/L 03/19/2023 4:16 PM [facility] Eosinophil Absolute 0.04 0.00 - 0.60 x10E9/L 03/19/2023 4:16 PM [facility] Basophil Absolute 0.06 0.00 - 0.13 x10E9/L 03/19/2023 4:16 PM [facility] Blood BLOOD SPECIMEN / Unknown Venipuncture / Unknown 03/19/2023 4:08 PM [facility] N[facility] 03/19/2023 4:14 PM [facility] NURSE Altagracia Veliz Dipak [employer] [facility] - PENELOPE TOLOGY ORDERABLES [facility] [address] [place] [address] * (ABNORMAL) COMPREHENSIVE METABOLIC PANEL (03/19/2023 4:08 PM [facility] NURSE) Only the most recent of8 resultswithin the time period is included. Glucose 331(H) 70 - 105 mg/dL 03/19/2023 4:32 PM [facility] Sodium 134(L) 136 - 145 mmol/L 03/19/2023 4:32 PM [facility] Potassium 3.9 3.5 - 5.1 mmol/L 03/19/2023 4:32 PM [facility] Chloride 102 98 - 107 mmol/L 03/19/2023 4:32 PM [facility] CO2 17(L) 22 - 29 mmol/L 03/19/2023 4:32 PM [facility] Calcium 9.3 8.4 - 10.4 mg/dL 03/19/2023 4:32 PM [facility] Anion Gap 15 6 - 16 mmol/L 03/19/2023 4:32 PM [facility] BUN 11 5.3 - 18.7 mg/dL 03/19/2023 4:32 PM [facility] Creatinine 1.09 0.57 - 1.11 mg/dL 03/19/2023 4:32 PM [facility] Alkaline Phosphatase 74 40 - 150 U/L 03/19/2023 4:32 PM [facility] ALT 25 0 - 55 U/L 03/19/2023 4:32 PM [facility] AST 21 5 - 34 U/L 03/19/2023 4:32 PM [facility] Protein Total 9.2(H) 6.4 - 8.3 gm/dL 03/19/2023 4:32 PM [facility] Albumin 4.5 3.4 - 5.0 gm/dL 03/19/2023 4:32 PM [facility] NURSE [facility] Bilirubin Total 0.9 0.2 - 1.2 mg/dL 03/19/2023 4:32 PM [facility] NURSE [facility] eGFR by CKD-EPI 65(L) >=90 mL/min/1.7 3 m2 03/19/2023 4:32 PM [facility] NURSE [facility] Blood BLOOD SPECIMEN / Unknown Venipuncture / Unknown 03/19/2023 4:08 PM [facility] NURSE 03/19/2023 4:14 PM [facility] NURSE Altagracia Quesada [employer] [facility] - CHEM ISTRY ORDERABLES [facility] [address] [place] [address] * SARS-COV-2 (COVID-19) FLU A/B RSV PCR RAPID (03/19/2023 3:51 PM [facility] NURSE) COVID-19 PCR Not detected Not detected 03/19/19 4:40 PM [facility] NURSE [facility] Influenza A PCR Not detected Not detected 03/19/2023 4:40 PM [facility] NURSE [facility] Influenza B PCR Not detected Not detected 03/19/2023 4:40 PM [facility] NURSE [facility] RSV PCR Not detected Not detected 03/19/2023 4:40 PM [facility] NURSE [facility] Microbiology SPECIMEN FROM NASOPHARYNGEAL STRUCTURE / Unknown Collection / Unknown 03/19/2023 3:51 PM [facility] NURSE 03/19/2023 3:57 PM [facility] NURSE Narrative [facility] - 03/19/2023 4:40 PM [facility] NURSE This nucleic acid amplification assay has been authorized by the Food and Drug administration (FDA) under an Emergency Use Authorization (EUA). This test is only authorized for the duration of time the declaration that circumstances exist justifying the authorization of emergency use of in vitro diagnostic tests for detection of SARS-CoV-2 virus and/or diagnosis of COVID-19 infection under section 564(b)(1) of the Act, 21 U.S.C 360bbb-3 (b)(1), unless the authorization is terminated or revoked sooner. Fact Sheets for this EUA assay are available upon request. Altagracia Pereserd [employer] [facility] - MICR OBIOLOGY ORDERABLES [facility] [address] [place] [address] * CARDIAC EKG ORDER (12/03/2022 2:10 PM CDT) Only the most recent of3 resultswithin the time period is included. Narrative 12/03/2022 2:10 PM CDT Ordered by an unspecified provider. Scanned Document CARDIAC SERVICES ORD ERABLES * (ABNORMAL) CBC W/O DIFFERENTIAL (12/02/2022 12:09 AM CDT) Only the most recent of4 resultswithin the time period is included. WBC 7.1 3.5 - 10.5 10 3/uL 12/02/2022 1:54 AM [facility] RBC 4.04 3.80 - 5.20 10 6/uL 12/02/2022 1:54 AM [facility] Hemoglobin 11.2(L) 12.0 - 15.6 g/dL 12/02/2022 1:54 AM [facility] Hematocrit 30.9(L) 35.0 - 45.0 % 12/02/2022 1:54 AM [facility] MCV 76.5(L) 80.7 - 98.3 fL 12/02/2022 1:54 AM [facility] MCH 27.7 26.7 - 34.0 pg 12/02/2022 1:54 AM [facility] MCHC 36.2(H) 30.8 - 35.9 g/dL 12/02/2022 1:54 AM [facility] RDW-SD 40.6 36.0 - 50.0 fL 12/02/2022 1:54 AM [facility] RDW-CV 14.6 11.2 - 14.8 % 12/02/2022 1:54 AM [facility] Platelet Count 224 150 - 400 10 3/uL 12/02/2022 1:54 AM [facility] MPV 11.2 9.4 - 12.9 fL 12/02/2022 1:54 AM [facility] nRBC Absolute 0.00 0 10 3/uL 12/02/2022 1:54 AM [facility] nRBC Auto 0.0 0 /100 WBC 12/02/2022 1:54 AM [facility] Blood BLOOD SPECIMEN / Unknown Lab Venipuncture / Unknown 12/02/2022 12:09 AM CDT 12/02/2022 1:43 AM CDT Juliann Garcia [employer] LAB - HEMATOLOGY ORDERABLES [facility] [address] [place] [address], [facility] [phone] * (ABNORMAL) RENAL FUNCTION PANEL (12/02/2022 12:09 AM CDT) Only the most recent of4 resultswithin the time period is included. BUN <5(L) 7 - 26 mg/dL 12/02/2022 2:16 AM [facility] Creatinine 0.63 0.56 - 0.96 mg/dL 12/02/2022 2:16 AM [facility] Sodium 139 136 - 145 mmol/L 12/02/2022 2:16 AM [facility] Potassium 3.4(L) 3.5 - 4.5 mmol/L 12/02/2022 2:16 AM [facility] Chloride 110(H) 98 - 107 mmol/L 12/02/2022 2:16 AM [facility] CO2 23 22 - 29 mmol/L 12/02/2022 2:16 AM [facility] Glucose 99 70 - 115 mg/dL 12/02/2022 2:16 AM [facility] Albumin 3.0(L) 3.4 - 5.0 g/dL 12/02/2022 2:16 AM [facility] Calcium 8.3(L) 8.4 - 10.2 mg/dL 12/02/2022 2:16 AM [facility] Phosphorus 2.7(L) 2.9 - 5.1 mg/dL 12/02/2022 2:16 AM CDT [facility] Anion Gap 6 6 - 16 12/02/2022 2:16 AM CDT [facility] BUN/Creatinine Ratio <8 7 - 23 12/02/2022 2:16 AM CDT [facility] Osmolality Calculated <285 275 - 295 mOsm/kg 12/02/2022 2:16 AM CDT [facility] eGFR by CKD-EPI >90 >=90 mL/min/1.7 3 m2 12/02/2022 2:16 AM CDT [facility] Blood BLOOD SPECIMEN / Unknown Lab Venipuncture / Unknown 12/02/2022 12:09 AM CDT 12/02/2022 1:43 AM CDT Miguel Castanon MD LAB - CHEMISTRY ORDERABLES [facility] [address] [place] [phone], [facility] [phone] * XR ABDOMEN KUB PORTABLE (11/29/2022 1:05 PM CDT) Anatomical Region Laterality Modality Abdomen Radiographic Felicia ging 11/29/2022 1:16 PM CDT Impressions 11/29/2022 2:52 PM CDT IMPRESSION: Non-obstructive bowel gas pattern. Report dictated by Alexis Casrto MD (interventional radiology tech). ISarika MD have personally reviewed and interpreted this examination/study. > Interpreting Provider: Sarika Carlos MD on 11/29/2022 2:52 PM Narrative 11/29/2022 2:52 PM CDT PROCEDURE: XR ABDOMEN KUB PORTABLE, DATE/TIME OF EXAM: 11/29/2022 1:06 PM, LOCATION [facility] INDICATION: R11.10: Intractable vomiting ADDITIONAL CLINICAL INFORMATION: Ordering Provider Reason For Exam: persistent n/v, eval for bowel distension COMPARISON: None. FINDINGS: There is no dilatation of small or large bowel. Free intraperitoneal air is not adequately assessed on supine radiographs. No pathological calcifications are seen. The visible osseous structures are intact. Procedure Note Sraika Carlos MD - 11/29/2022 PROCEDURE: XR ABDOMEN KUB PORTABLE, DATE/TIME OF EXAM: 11/29/2022 1:06PM, LOCATION [facility] INDICATION: R11.10: Intractable vomiting ADDITIONAL CLINICAL INFORMATION: Ordering Provider Reason For Exam: persistent n/v, eval for bowel distension COMPARISON: None. FINDINGS: There is no dilatation of small or large bowel. Free intraperitoneal airis not adequately assessed on supine radiographs. No pathological calcifications are seen. The visible osseous structures are intact. IMPRESSION: Non-obstructive bowel gas pattern. Report dictated by Alexis Castro MD (interventional radiology tech). I, Sarika Carlos MD have personally reviewed and interpreted this examination/study. > Interpreting Provider: Sarika Carlos MD on 11/29/2022 2:52 PM Miguel Castanon MD DIAGNOSTIC IMAGI NG ORDERABLES * EKG 12-LEAD (11/29/2022 12:57 PM CDT) Only the most recent of6 resultswithin the time period is included. Ventricular Rate 94 BPM [facility] Atrial Rate 94 BPM [facility] P-R Interval 142 ms [facility] QRS Duration ms 88 ms [facility] Q-T Interval ms 372 ms [facility] QTC Calculation (Bezet) 465 ms [facility] Calculated P Spring 66 degrees [facility] Calculated R Spring 41 degrees [facility] Calculated T Spring 34 degrees [facility] Interpretation EKG NORMAL SINUS RHYTHM NORMAL ECG WHEN COMPARED WITH ECG OF 13-SEP-2019 23:13, NO SIGNIFICANT CHANGE WAS FOUND Confirmed by RUDY LUU MD ([id number]) on 12/02/2022 8:27:10 PM [facility] 11/29/2022 12:5 7 PM CDT 12/02/2022 8:27 PM CDT Miguel Castanon MD ECG ORDERABLES [facility] MUSE * (ABNORMAL) BLOOD GASES JOEY + COOX PANEL (11/29/2022 3:58 AM CDT) Only the most recent of3 resultswithin the time period is included. Pathologist [facility] pH Venous 7.36 7.32 - 7.42 pH 11/29/2022 4:02 AM [facility] pO2 Venous 36 35 - 40 mmHg 11/29/2022 4:02 AM [facility] pCO2 Venous 39(L) 40 - 50 mmHg 11/29/2022 4:02 AM [facility] HCO3 Venous 22.0 20 - 30 mmol/L 11/29/2022 4:02 AM [facility] Base Excess Venous -3.2(L) -2.0 - 2.0 mmol/L 11/29/2022 4:02 AM [facility] Oxyhemoglobin Venous 59.2 % 11/09 4:02 AM [facility] Deoxyhemoglobin (HHB) Venous % 39.4 % 11/29/2022 4:02 AM [facility] Methemoglobin <0.8 0.0 - 2.0 % 11/29/2022 4:02 AM [facility] Carboxyhemoglobin 1.3 0.0 - 2.0 % 2022 4:02 AM [facility] O2 Content Venous 10.4 Interpret within clinical context ml/dL 11/29/2022 4:02 AM [facility] Hemoglobin by COOX 12.5 12.0 - 15.6 g/dL 11/29/2022 4:02 AM [facility] O2 Saturation Venous 60(L) >=70 % 11/09 4:02 AM [facility] FI O2 Mixed Venous 21.0 % 2022 4:02 AM [facility] Blood BLOOD SPECIMEN / Unknown Venipuncture / Unknown 11/29/2022 3:58 AM T 11/29/2022 3:59 AM [facility] - 11/29/2022 4:02 AM [facility] Carboxyhemoglobin Normal Concentration: Non-smokers: 0-2%; Smokers: 0-9%; Toxic: >20% Juliann Garcia APRN-[employer] LAB - BLOOD GASE S ORDERABLES [facility] [address] [place] [address], [facility] [phone] * (ABNORMAL) PHOSPHORUS BLOOD (11/29/2022 12:59 AM CDT) Only the most recent of2 resultswithin the time period is included. Phosphorus 1.1(L) 2.9 - 5.1 mg/dL 11/29/2022 2:15 AM CDT [facility] Blood BLOOD SPECIMEN / Unknown Lab Venipuncture / Unknown 11/29/2022 12:59 AM CDT 11/29/2022 1:30 AM CDT Juliann Austin Jose ESTRELLA-[employer] LAB - CHEMISTRY ORDERABLES [facility] [address] [place] [address], [facility] [phone] * XR CHEST 1VW PORTABLE (11/28/2022 7:44 PM CDT) Only the most recent of3 resultswithin the time period is included. Anatomical Region Laterality Modality Chest Radiographic Felicia ging 11/28/2022 7:53 PM CDT Narrative 11/29/2022 5:28 AM CDT PROCEDURE: XR CHEST 1VW PORTABLE, DATE/TIME OF EXAM: 11/28/2022 7:44 PM, LOCATION [facility] INDICATION: R00.0: Tachycardia Ordering Provider Reason For Exam: Baseline COMPARISON: None. FINDINGS/IMPRESSION: There is no focal consolidation, pleural effusion, or pneumothorax. The cardiomediastinal silhouette is normal. The visible bony thorax is intact. Report dictated by Keyur Purvis MD (interventional radiology tech). I, Willie Mendenhall MD have personally reviewed and interpreted this examination/study. > Interpreting Provider: Willie Mendenhall MD on 11/29/2022 5:28 AM Procedure Note Willie Mendenhall MD - 11/29/2022 PROCEDURE: XR CHEST 1VW PORTABLE, DATE/TIME OF EXAM: 11/28/2022 7:44PM, LOCATION [facility] INDICATION: R00.0: Tachycardia Ordering Provider Reason For Exam: Baseline COMPARISON: None. FINDINGS/IMPRESSION: There is no focal consolidation, pleural effusion, or pneumothorax. The cardiomediastinal silhouette is normal. The visible bony thorax is intact. Report dictated by Keyur Purvis MD (interventional radiology tech). I, Willie Mendenhall MD have personally reviewed and interpreted this examination/study. > Interpreting Provider: Willie Mendenhall MD on 11/29/2022 5:28 AM Soto Paredes MD DIAGNOSTIC IMAGING O RDERABLES * LACTIC ACID BLOOD REFLEX TO REPEAT (11/28/2022 4:27 PM CDT) Only the most recent of3 resultswithin the time period is included. [facility] Lactic Acid-Stat 1.6 <=2.0 mmol/L 11/28/2022 5:09 PM CDT [facility] Blood BLOOD SPECIMEN / Unknown Venipuncture / Unknown 11/28/2022 4:27 PM CDT 11/28/2022 4:47 PM CDT Soto Paredes MD LAB - CHEMISTRY OSCAR NUÑEZ [facility] Organization Address City/State/ZIP Co de Phone Number [facility] [address] [place] [phone], [facility] [phone] * (ABNORMAL) URINALYSIS W/MICROSCOPIC REFLEX TO CULTURE (11/28/2022 2:56 PM CDT) Pathologist [facility] Color UA [place](A) Straw, Yellow 11/28/2022 3:41 PM CDT [facility] Clarity UA Slt Cloudy(A) Clear 11/28/2022 3:41 PM CDT [facility] Specific [place] UA 1.027 1.005 - 1.030 11/28/2022 3:41 PM CDT [facility] pH UA 6.0 5.0 - 8.0 pH 11/28/2022 3:41 PM CDT [facility] Protein UA 2+(A) Negative 11/28/2022 3:41 PM CDT [facility] Glucose UA 3+(A) Negative 11/28/2022 3:41 PM T [facility] Ketone UA 2+(A) Negative 11/28/2022 3:41 PM T [facility] Bilirubin UA Negative Negative 11/28/2022 3:41 PM [facility] Blood UA 2+(A) Negative 11/28/2022 3:41 PM T [facility] Nitrite UA Negative Negative 11/28/2022 3:41 PM [facility] Leukocyte Esterase Negative Negative 11/28/2022 3:41 PM [facility] Urobilinogen UA Negative Negative mg/dL 11/28/2022 3:41 PM [facility] RBC UA >100(A) None Seen, 0-2, 3-5 /HPF 11/28/2022 3:41 PM [facility] WBC UA 51-100(A) None Seen, 0-5 /HPF 11/28/2022 3:41 PM [facility] Squamous Epithelial Cells UA 6-10(A) None Seen, 0-2, 3-5 /HPF 11/28/2022 3:41 PM [facility] Mucus UA 1+ /LPF 11/28/2022 3:41 PM [facility] Urine URINE SPECIMEN OBTAINED BY CLEAN CATCH PROCEDURE / Unknown Collection / Unknown 11/28/2022 2:56 PM CDT 11/28/2022 3:[address] [facility] - 11/28/2022 3:41 PM CDT Lab Status, Culture Reflex Indicated. Soto Paredes MD LAB - URINALYSIS ORD ERABLES [facility] [address] [place] [address], [facility] [phone] * CULTURE URINE (11/28/2022 2:56 PM CDT) Only the most recent of4 resultswithin the time period is included. Culture Urine <10,000 CFU/mL urogenital karolina KATHLEEN 11/30/2022 11:03 AM CDT [facility] Urine URINE SPECIMEN OBTAINED BY CLEAN CATCH PROCEDURE / Unknown Collection / Unknown 11/28/2022 2:56 PM CDT 11/28/2022 3:36 PM CDT Soto Paredes MD LAB - MICROBIOLOGY O RDNILES [facility] [address] [place] [address], [facility] [phone] * LACTIC ACID REPEAT REFLEX (11/28/2022 1:41 PM CDT) Only the most recent of2 resultswithin the time period is included. Lactic Acid Repeat Reflex Order LACTIC ACID REPEAT HAS BEEN ORDERED 11/28/2022 4:00 PM CDT [facility] Blood BLOOD SPECIMEN / Unknown Venipuncture / Unknown 11/28/2022 1:41 PM CDT 11/28/2022 2:18 PM CDT Soto Paredes MD LAB - CHEMISTRY OSCAR NUÑEZ Performing Organization Address [facility] Co de Phone Number [address] [address], [place] [phone] * LIPASE BLOOD (11/28/2022 1:41 PM CDT) Only the most recent of4 resultswithin the time period is included. Lipase 19 8 - 78 U/L 11/28/2022 2:20 PM CDT [facility] Blood BLOOD SPECIMEN / Unknown Venipuncture / Unknown 11/28/2022 1:41 PM CDT 11/28/2022 1:51 PM CDT Narrative [facility] - 11/28/2022 2:20 PM CDT Lipase results from the [employer] Al[employer] analyzer may not be comparable with other methodologies. Soto Paredes MD LAB - CHEMISTRY [facility]SCAR NU[facility] Performing Organization Address City/[facility]/ZIP Co de Phone Number [address] [address], [place] [phone] * ANTI-MULLERIAN HORMONE (11/26/2021 3:09 PM CDT) Anti-Mullerian Hormone 2.79 ng/mL [facility] ACCOUNT BILL Comment: For assays employing antibodies, the possibility exists for interference by heterophile antibodies in the samples.1 1.Sonia Caba Interferences in Immunoassays - still a threat. Clin. Chem. 2000; 46: 4318-8408. This test was developed and its performance characteristics determined by [facility]. It has not been cleared or approved by the Food and Drug Administration. Reference Range: Females 41 - 46y: 0.26 - 5.81 Median 0.58 AMH concentrations of >= 1.06 ng/mL is correlated with a better response to ovarian stimulation, produced more retrievable oocytes and higher odds of live according to Johner et al. Fertility and Sterility. 2010: 94:8514-4388. The current AMH test method correlates with the study method with a slope of 0.94. Females at risk of ovarian hyperstimulation syndrome or polycystic ovarian syndrome (PCOS) may exhibit elevated serum AMH concentrations. AMH levels from PCOS patients may be 2 to 5 fold higher than age-appropriate reference interval values. Granulosa cell tumors of the ovary may secrete AMH along with other tumor markers. Elevated AMH is not specific for malignancy, and the assay should not be used exclusively to diagnose or exclude an AMH-secreting ovarian tumor. Blood BLOOD SPECIMEN / Unknown 11/26/2021 3:09 PM CDT 11/26/2021 Narrative Resulting Agency Comment Lab Testing performed at: [facility] [address] [place] [address] [phone] Jacklyn Galaviz DO LAB - CHEMISTRY OSCAR NUÑEZ [facility] ACCOUNT BILL [address] [place], [place] [id number] * TSH+FREE T4+FREE T3 (11/26/2021 3:09 PM CDT) TSH 1.330 0.450 - 4.500 uIU/mL [facility] ACCOUNT BILL T3 Free 3.2 2.0 - 4.4 pg/mL [facility] ACCOUNT BILL T4 Free 1.11 0.82 - 1.77 ng/dL [facility] ACCOUNT BILL Blood BLOOD SPECIMEN / Unknown 11/26/2021 3:09 PM CDT 11/26/2021 Narrative Resulting Agency Comment Lab Testing performed at: [facility] [address] [facility] [phone] Jacklyn Galaviz DO LAB - CHEMISTRY ORDE JOAQUIN [facility] ACCOUNT BILL [address] [place] [address] * PROLACTIN (11/26/2021 3:09 PM CDT) Prolactin 19.0 4.8 - 23.3 ng/mL [facility] ACCOUNT BILL Blood BLOOD SPECIMEN / Unknown 11/26/2021 3:09 PM CDT 11/26/2021 Narrative Resulting Agency Comment Lab Testing performed at: [facility] [address] [facility] [phone] Jacklyn Galaviz DO LAB - CHEMISTRY ORDPaula NUÑEZ Performing Organization Address City/[facility]/ZIP Co de Phone Number [facility] ACCOUNT BILL [address] [place] [address] * HCG BETA BLOOD QUANTITATIVE (11/26/2021 3:09 PM CDT) Only the most recent of2 resultswithin the time period is included. hCG Value <1 mIU/mL [facility] ACCOUNT BILL Comment: Female (Non-) 0 - 5 (Postmenopausal) 0 - 8 . Female () Weeks of Gestation 3 6 - 71 4 10 - 750 5 502 - 1116 6 469 - [phone] 7 [phone] 8 [phone] 9 [phone] 10 [phone] [phone] 12 98286 -[phone] 14 07227 - 08152 15 46221 - 38985 16 9014 - 10498 17 0875 - 30752 18 [phone] - [phone] Mook ECLIA methodology Blood BLOOD SPECIMEN / Unknown 11/26/2021 3:09 PM CDT 11/26/2021 Narrative Resulting Agency Comment Lab Testing performed at: [facility] [address] [facility] [phone] Jacklyn Galaviz DO LAB - CHEMISTRY ORDE JOAQUIN [facility] ACCOUNT [place] [address] * LACTIC ACID BLOOD (09/18/2021 6:25 PM CDT) Only the most recent of3 resultswithin the time period is included. Lactic Acid 1.51 <=2 mmol/L 09/18/2021 6:43 PM CDT [facility] Blood BLOOD SPECIMEN / Unknown Venipuncture / Unknown 09/18/2021 6:25 PM CDT 09/18/2021 6:25 PM CDT Doris Anders MD LAB - CHEMISTRY ORDE JOAQUIN Performing Organization Address City/[facility]/ZIP Co de Phone Number [facility] [address] [phone] * CT ABDOMEN AND PELVIS WITH IV CONTRAST (09/18/2021 1:13 PM CDT) Only the most recent of3 resultswithin the time period is included. Anatomical Region Laterality Modality Abdomen, Pelvis Computed Tomogra phy 09/18/2021 1:35 PM CDT Impressions 09/18/2021 1:42 PM CDT 1. Trace pneumoperitoneum, likely secondary to recent cholecystectomy. 2. Right ovarian cyst measuring up to 4.2 cm in diameter. 3. Trace nonspecific pelvic free fluid, which could be postsurgical or physiologic. *Reading Radiologist: Roro Hooper on 09/18/2021 at 1:42 PM Narrative 09/18/2021 1:42 PM CDT STUDY: CT OF THE ABDOMEN AND PELVIS WITH CONTRAST HISTORY: Generalized abdominal pain. Patient is one week status post cholecystectomy. COMPARISON: CT of abdomen and pelvis dated 08/14/2021. TECHNIQUE: CT of the abdomen and pelvis was performed from the lung bases to the proximal femurs following the uneventful intravenous administration of 75 mL of Isovue-370. Oral contrast was not administered. Multiplanar reconstructions were reviewed. Dose reduction techniques were utilized. FINDINGS: The lung bases are clear. There is no pleural effusion. The heart is normal in size without pericardial effusion. The liver is normal in size and morphology. The gallbladder is surgically absent. There is no abnormal intra-or extrahepatic biliary ductal dilation. The pancreas, spleen, and adrenal glands are unremarkable. The kidneys and urinary bladder are unremarkable. The uterus is unremarkable. A right ovarian cyst measures up to 4.2 cm in diameter. There is trace nonspecific pelvic free fluid which could be postsurgical or physiologic. The small and large bowel are normal in wall thickness and caliber. The appendix is not definitively visualized, but no secondary signs of appendicitis are seen. There is no masslike lymphadenopathy. There is a trace pneumoperitoneum which likely secondary to recent cholecystectomy. The superficial soft tissues are unremarkable. The osseous structures are unremarkable. Procedure Note Roro Hooper MD - 09/18/2021 STUDY: CT OF THE ABDOMEN AND PELVIS WITH CONTRAST HISTORY: Generalized abdominal pain. Patient is one week status post cholecystectomy. COMPARISON: CT of abdomen and pelvis dated 08/14/2021. TECHNIQUE: CT of the abdomen and pelvis was performed from the lung bases to the proximal femurs following the uneventful intravenous administration of 75 mL of Isovue-370. Oral contrast was not administered. Multiplanar reconstructions were reviewed. Dose reduction techniques were utilized. FINDINGS: The lung bases are clear. There is no pleural effusion. The heart is normal in size without pericardial effusion. The liver is normal in size and morphology. The gallbladder is surgically absent. There is no abnormal intra-or extrahepatic biliary ductal dilation. The pancreas, spleen, and adrenal glands are unremarkable. The kidneys and urinary bladder are unremarkable. The uterus is unremarkable. A right ovarian cyst measures up to 4.2 cm in diameter. There is trace nonspecific pelvic free fluid which could be postsurgical or physiologic. The small and large bowel are normal in wall thickness and caliber. The appendix is not definitively visualized, but no secondary signs of appendicitis are seen. There is no masslike lymphadenopathy. There is a trace pneumoperitoneum which likely secondary to recent cholecystectomy. The superficial soft tissues are unremarkable. The osseous structures are unremarkable. IMPRESSION 1. Trace pneumoperitoneum, likely secondary to recent cholecystectomy. 2. Right ovarian cyst measuring up to 4.2 cm in diameter. 3. Trace nonspecific pelvic free fluid, which could be postsurgical or physiologic. *Reading Radiologist: Roro Hooper on 09/18/2021 at 1:42 PM Suhaib Americo Ased DO CT ORDERABLES * ETT LINE PERFORMABLE (09/13/2021 11:54 AM CDT) Karen Yeung MD - 09/13/2021 11:54 AM CDT Shelton Goldstein, MIKE 09/13/2021 11:55 AM Endotracheal Tube Placement: Patient Location: OR. Intubation Event Date/Time: 09/13/2021 11:16 AM Procedure: intubation (56992). Procedure Section: Sedation: under general anesthesia. Indications for Airway Management: anesthesia Procedure pretreatments used? No Induction: standard IV Patient Position: sniffing Mask Ventilation: easy with oral airway. Blade Type: Video Blade Size: 3 Laryngoscopy View: grade 1 (full cords) Intubation Adjuncts: stylet Tube: endotracheal tube Placement: oral Tube type: cuff - inflated Tube Size (MM): 7 Depth of Insertion (CM): 22 Measured From: lips Cuff volume (mL): 10 Cuff Inflated With: air Number of Attempts: 1. Placement Verified By: direct visualization, bilateral breath sounds and CO2 monitor Tube secured with: adhesive tape. Dentition unchanged? Yes Difficult Airway? No. Procedure Start Time: 09/13/2021 11:16 AM. Procedure End Time: 09/13/2021 11:17 AM. Procedure Total Time: 1 minutes. Staff Section Anesthesia Provider: Shelton Goldstein, MIXER TENDERFELTON, Performed the procedure Karen Buckley MD GENERAL ANESTHESIA O RDERABLES * PATHOLOGY TISSUE EXAM (STL) (09/13/2021 11:43 AM CDT) Only the most recent of2 resultswithin the time period is included. Case Report Surgical Pathology Report Case: [id number] Authorizing Provider: Bettye Abbott MD Collected: 09/13/2021 11:43 AM Ordering Location: [facility] Received: 09/13/2021 01:16 PM Pathologist: Vicki Goodman MD Specimen: Gallbladder 09/17/2021 1:58 PM CDT [facility] Final Diagnosis Gallbladder, cholecystectomy: -- Mild chronic inflammation 09/17/2021 1:58 PM CDT [facility] Gross Description Received in formalin in a single container labeled [place], gallbladder, is a 7.3 x 2.5 x 1.5 cm gallbladder. The serosa is unremarkable. Sections of the gallbladder show a green velvety unremarkable mucosa. The gallbladder wall measures 0.2 cm in thickness. Within the gallbladder is green-yellow bile without gallstones or gritty material. The contents of the container are filtered yielding no gallstones or gritty material. Associate Agent Insurance Sales sections are submitted in cassette A1. CH/lk 09/17/2021 1:58 PM CDT [facility] Microscopic Description Histologic evaluation supports the diagnosis. 09/17/2021 1:58 PM CDT [facility] Disclaimer All histochemical and/or immunohistochemical results are interpreted with controls that demonstrate appropriate staining reactions before reporting results. Note on use of immunocytochemistry reagents: This test was developed and its performance characteristic determined by [facility], Department of Laboratory Medicine. It has not been cleared or approved by the U.S. Food and Drug Administration (FDA). The FDA has determined that such clearance or approval is not necessary. The test is used for clinical purpose. It should not be regarded as investigational or for research. This laboratory is certified to perform high complexity testing. The performance characteristics of the IHC/NIVIA assays have been validated on formalin-fixed paraffin embedded tissues only. The assays have not been validated on decalcified tissues. Results should be interpreted with caution. 09/17/2021 1:58 PM CDT [facility] Embedded Images 09/17/2021 1:58 PM CDT [facility] Pathology/Cytolo gy ENTIRE GALLBLADDER / Unknown 09/13/2021 11:43 AM CDT 09/13/2021 1:16 PM CDT Bettye Abbott MD LAB - PATHOLOGY/CYTO LOGY ORDERABLES [facility] [address] [place] [address] * IRON + TRANSFERRIN PANEL (08/15/2021 5:49 AM CDT) Iron 143 50 - 170 ug/dL 08/15/2021 6:17 AM CDT [facility] Transferrin 306 180 - 382 mg/dL 08/15/2021 6:17 AM CDT [facility] TIBC Calculated 383 240 - 450 ug/dL 08/15/2021 6:17 AM CDT [facility] Iron Saturation % 37 20 - 50 % 08/15/2021 6:17 AM CDT [facility] Blood BLOOD SPECIMEN / Unknown Venipuncture / Unknown 08/15/2021 5:49 AM CDT 08/15/2021 5:53 AM CDT Susan Blackmondonsabra MIXER TENDER[employer] LAB - RESPIRATORY EQUIPMENT ASSISTANT RY ORDERABLES [facility] [address] [place] [address] * (ABNORMAL) URINALYSIS REFLEX TO MICROSCOPIC NO CULTURE (08/14/2021 3:53 AM CDT) Color UA Colorless(A) Straw, Yellow 08/14/2021 4:04 AM CDT [facility] Clarity UA Clear Clear 08/14/2021 4:04 AM CDT [facility] Glucose UA 3+(A) Negative 08/14/2021 4:04 AM CDT [facility] Bilirubin UA Negative Negative 08/14/2021 4:04 AM CDT [facility] Ketone UA 1+(A) Negative 08/14/2021 4:04 AM CDT [facility] Specific [place] UA 1.011 1.005 - 1.030 08/14/2021 4:04 AM CDT [facility] Blood UA Negative Negative 08/14/2021 4:04 AM CDT [facility] pH UA 7.0 5.0 - 8.0 pH 08/14/2021 4:04 AM CDT [facility] Protein UA Negative Negative 08/14/2021 4:04 AM CDT [facility] Urobilinogen UA Negative Negative mg/dL 08/14/2021 4:04 AM CDT [facility] Nitrite UA Negative Negative 08/14/2021 4:04 AM CDT [facility] Leukocyte UA Negative Negative 08/14/2021 4:04 AM CDT [facility] Urine Microscopy Urine microscopy not indicated 08/14/2021 4:04 AM CDT [facility] Urine URINE SPECIMEN OBTAINED BY CLEAN CATCH PROCEDURE / Unknown Collection / Unknown 08/14/2021 3:53 AM CDT 08/14/2021 3:57 AM CDT Narrative [facility] - 08/14/2021 4:04 AM CDT Kareem Scott MD LAB - URINALYSIS ORD ERABLES [facility] [address] [place] [address] * MAMMO BILAT SCREENING W TRISTEN (04/10/2021 9:23 AM [facility] NURSE) Anatomical Region Laterality Modality Breast Bilateral Mammography 04/10/2021 10:5 3 AM [facility] NURSE Impressions 04/10/2021 10:54 AM [facility] NURSE There is no mammographic evidence of malignancy. OVERALL FINAL ASSESSMENT: BI-RADS CATEGORY 1: NEGATIVE. Annual screening mammography is recommended. *Reading Radiologist: Mary Dougherty on 04/10/2021 at 10:54 AM Narrative 04/10/2021 10:54 AM [facility] NURSE EXAMINATION: BILATERAL DIGITAL SCREENING MAMMOGRAM AND BILATERAL [...] breast. Jacklyn Galaviz DO MAMMO ORDERABLES * NM HEPATOBILIARY WITH EF (10/06/2020 2:38 PM CDT) Anatomical Region Laterality Modality Abdomen Nuclear Medicine 10/06/2020 2:43 PM CDT Impressions 10/06/2020 2:44 PM CDT 1. Initial phase of nuclear medicine HIDA scan is within normal limits, demonstrating patency of the cystic and common bile ducts. 2. Gallbladder ejection fraction is severely diminished, consistent with gallbladder dysmotility. *Reading Radiologist: Jolene Gonzalez on 10/06/2020 at 2:44 PM Narrative 10/06/2020 2:44 PM CDT [facility] Hepatobiliary Scan (HIDA) Indication: Abdominal pain. Technique: After intravenous administration of 5 mCi labeled Mebrofenin, multiple images of the right upper quadrant were obtained. 1.2 and gallbladder ejection fraction calculated by region of interest. Findings: Initial phase of the study is normal, demonstrating a good extraction of radiopharmaceutical by the liver. The gallbladder is visualized by 15minutes and the common bile duct is visualized by 15 minutes. Small bowel can be visualized by 20 minutes. After administration of CCK, the maximum gallbladder ejection fraction is calculated at -0.23% at 11 minutes. This indicates that the gallbladder continued to fill following administration of CCK. This is less than the normal gallbladder ejection fraction of greater than or equal to 35% and is consistent with gallbladder dysmotility. Procedure Note Jolene Gonzalez MD - 10/06/2020 ME Hepatobiliary Scan (HIDA) Indication: Abdominal pain. Technique: After intravenous administration of 5 mCi labeled Mebrofenin, multiple images of the right upper quadrant were obtained. 1.2 and gallbladder ejection fraction calculated by region of interest. Findings: Initial phase of the study is normal, demonstrating a good extraction of radiopharmaceutical by the liver. The gallbladder is visualized by 15minutes and the common bile duct is visualized by 15 minutes. Small bowel can be visualized by 20 minutes. After administration of CCK, the maximum gallbladder ejection fraction is calculated at -0.23% at 11 minutes. This indicates that the gallbladder continued to fill following administration of CCK. This is less than the normal gallbladder ejection fraction of greater than or equal to 35% and is consistent with gallbladder dysmotility. IMPRESSION 1. Initial phase of nuclear medicine HIDA scan is within normal limits, demonstrating patency of the cystic and common bile ducts. 2. Gallbladder ejection fraction is severely diminished, consistent with gallbladder dysmotility. *Reading Radiologist: Jolene Gonzalez on 10/06/2020 at 2:44 PM Elida Garner MD ME ORDERABLES * TROPONIN I (05/12/2020 5:19 PM [facility] NURSE) Only the most recent of4 resultswithin the time period is included. Troponin I <0.010 <0.038 ng/mL 05/12/2020 5:42 PM [facility] INTENS[facility]ARE UNIT NURSE [facility] Blood BLOOD SPECIMEN / Unknown Venipuncture / Unknown 05/12/2020 5:19 PM [facility] NURSE 05/12/2020 5:21 PM [facility] UN[facility] NURSE Chiquis Stringer MD LAB - CHEMISTRY OR DERABLES [facility] [address] [place] [address] * (ABNORMAL) BLOOD GASES JOEY (ISTAT) (05/12/2020 4:03 PM [facility] NURSE) pH Venous POCT 7.36 7.32 - 7.42 pH 05/12/2020 4:05 PM [facility] INTENS[facility]ARE UNIT NURSE [facility] pCO2 Venous POCT 43.8 41 - 51 mm hg 05/12/2020 4:05 PM [facility] INTENS[facility]ARE UNIT NURSE [facility] pO2 Venous POCT 18(L) 30 - 55 mm hg 05/12/2020 4:05 PM [facility] INTENS[facility]ARE UN[facility] NURSE [facility] HCO3 Venous 24.7 24 - 26 mmol/L 05/12/2020 4:05 PM [facility] INTENS[facility]ARE UNIT NURSE [facility] BE Venous -1 -2 - 2 mmol/L 05/12/2020 4:05 PM [facility] INTENS[facility]ARE UNIT NURSE [facility] O2 Saturation Venous POCT 25(L) >70 % 05/12/2020 4:05 PM [facility]ENS[facility]ARE UNIT NURSE [facility] TCO2 Venous Calc POCT 26 24 - 29 mmol/L 05/12/2020 4:05 PM [facility]ARE UN[facility] NURSE [facility] Site Joey Line 05/12/2020 4:05 PM [facility] INTENS[facility]ARE UNIT NURSE [facility] Fabio's Test NA 05/12/2020 4:05 PM [facility]ARE [facility] NURSE [facility] Treatment Delivery Method Room Air 05/12/2020 4:05 PM [facility] NURSE [facility] Sample iSTAT JOEY 05/12/2020 4:05 PM [facility]ARE [facility] NURSE [facility] Blood BLOOD SPECIMEN / Unknown 05/12/2020 4:03 PM [facility]ARE [facility] NURSE 05/12/2020 4:05 PM [facility] NURSE Chiquis Stringer MD LAB - POINT OF CAR E ORDERABLES Performing Organization Address [facility] de Phone Number [facility] [id number] [place] [address] * BLOOD GASES VENOUS POCT (05/12/2020 4:02 PM [facility] UN[facility] NURSE) Comment Notification Label Only - See Separate Report 05/12/2020 5:30 PM [facility]ARE UNIT NURSE [facility] Blood BLOOD SPECIMEN / Unknown 05/12/2020 4:02 PM [facility]ARE UN[facility] NURSE 05/12/2020 4:02 PM [facility] NURSE Chiquis Stringer MD LAB - BLOOD GASES ORDERABLES Performing Organization Address [facility] de Phone Number [facility] [address] [place] [address] * TSH REFLEX FREE T4 (05/12/2020 2:24 PM [facility]ARE UNIT NURSE) Pathologist [facility] TSH 1.255 0.350 - 4.940 uIU/mL 05/12/2020 5:05 PM [facility] INTENS[facility] CARE UNIT NURSE [facility] Blood BLOOD SPECIMEN / Unknown Venipuncture / Unknown 05/12/2020 2:24 PM [facility]ARE UNIT NURSE 05/12/2020 2:29 PM [facility]ARE UN[facility] NURSE Chiquis Stringer MD LAB - CHEMISTRY OR DERABLES Performing Organization Address [facility] de Phone Number [facility] [id number] [place] [address] * HCG BLOOD QUALITATIVE (05/12/2020 2:24 PM [facility] UN[facility] NURSE) HCG Qual Serum Negative Negative 05/12/2020 2:43 PM [facility] INTENS[facility] CARE UNIT NURSE [facility] Blood BLOOD SPECIMEN / Unknown Venipuncture / Unknown 05/12/2020 2:24 PM [facility] UN[facility] NURSE 05/12/2020 2:29 PM [facility] UN[facility] NURSE Chikis Blackmon PA-C LAB - CHEMISTRY ORD ERABLES [facility] [address] [place] [address] * PATHOLOGY/CYTOLOGY REPORT ORDER (12/13/2019 10:58 PM CDT) Narrative 12/13/2019 10:58 PM CDT Ordered by an unspecified provider. Scanned Document LAB - PATHOLOGY/CYTO LOGY ORDERABLES * APHERESIS/TRANSFUSION ORDER (12/13/2019 10:58 PM CDT) Narrative 12/13/2019 10:58 PM CDT Ordered by an unspecified provider. Scanned Document NURSING - VITAL SIGN S AND ASSESSMENT * ETT LINE PERFORMABLE (12/09/2019 11:17 AM CDT) Narrative Jacklyn Stokes - 12/09/2019 11:17 AM CDT Jacklyn Stokes APRN-CRNA 12/09/2019 11:19 AM Endotracheal Tube Placement: Patient Location: OR. Intubation Event Date/Time: 12/09/2019 10:58 AM Procedure: intubation (74563). Procedure Section: Sedation: under general anesthesia. Indications for Airway Management: anesthesia Procedure pretreatments used? No Induction: standard IV Patient Position: sniffing Mask Ventilation: not attempted. Blade Type: [place] Blade Size: 3 Laryngoscopy View: grade 1 (full cords) Intubation Adjuncts: cricoid pressure and stylet Tube: endotracheal tube Placement: oral Tube type: cuff - inflated Tube Size (MM): 7 Depth of Insertion (CM): 22 Measured From: teeth Cuff volume (mL): 8 Cuff Inflated With: air Number of Attempts: 1. Placement Verified By: direct visualization, bilateral breath sounds, chest auscultation and CO2 detector Tube secured with: adhesive tape. Dentition unchanged? Yes Difficult Airway? No. Procedure Start Time: 12/09/2019 10:58 AM. Staff Section Anesthesia Provider: Jacklyn Stokes APRN-CRNA, Performed the procedure Luba Razo MD GENERAL ANESTHESI A ORDERABLES * BLOOD TYPE VERIFICATION (12/09/2019 10:46 AM CDT) ABO Rh O POS 12/09/2019 11:19 AM CDT [facility] Blood Bank BLOOD SPECIMEN / Unknown Venipuncture / Unknown 12/09/2019 10:46 AM CDT 12/09/2019 10:49 AM CDT Jacklyn Escalante Guillaume JOHANSEN LAB - BLOOD BANK ORD NILES Performing Organization Address [facility] Co de Phone Number [facility] [address] [place], [place] [address] [phone] * TYPE + SCREEN PANEL (12/09/2019 10:21 AM CDT) ABO Rh O POS 12/09/2019 11:19 AM CDT [facility] Comment:No history; collect retype. Antibody Screen NEG 0 11:19 AM CDT [facility] Blood Bank BLOOD SPECIMEN / Unknown Venipuncture / Unknown 12/09/2019 10:21 AM CDT 12/09/2019 10:44 AM CDT Jacklyn Escalante Guillaume LAB - BLOOD BANK ORD [place]ES Performing Organization Address City/[facility] Co de Phone Number [facility] [address] [place], [place] [address] [phone] * US OB TRANSVAGINAL DOPPLER (12/09/2019 8:50 AM CDT) Anatomical Region Laterality Modality Pelvis Ultrasound 12/09/2019 8:57 AM CDT Impressions 12/09/2019 9:21 AM CDT Right adnexal ectopic as described above *Reading Radiologist: Rod Medrano on 12/09/2019 at 9:21 AM Narrative 12/09/2019 9:21 AM CDT EXAM: US OB TRANSVAGINAL DOPPLER*[id number] INDICATION: Encounter for test, result positive, pelvic pain COMPARISON: none available FINDINGS: There is a small ectopic present in the right adnexa at the margin of the right ovary. Gestational sac and yolk sac are identified. There is suggestion of a small pole but no heart motion is detected. Gestational sac measures 7.4 mm corresponding to a gestational age of 5 weeks 4 days. This finding was scheduled with Dr. Galaviz over the phone at 9:15 AM on 12/09/2019. There is a corpus luteum cyst in the right ovary. There is trace free fluid in the right adnexa. The uterus is prominent. The endometrial complex measures 8 mm in thickness. Uterine fibroids are noted. The largest measures approximately 3 cm in greatest dimension. There are 2 tiny cystic areas near the EMC measuring less than 3 mm each. Procedure Note Rod Medrano MD - 12/09/2019 EXAM: US OB TRANSVAGINAL DOPPLER*[id number] INDICATION: Encounter for test, result positive, pelvic pain COMPARISON: none available FINDINGS: There is a small ectopic present in the right adnexa at the margin of the right ovary. Gestational sac and yolk sac are identified. There is suggestion of a small pole but no heart motion is detected. Gestational sac measures 7.4 mm corresponding to a gestational age of 5 weeks 4 days. This finding was scheduled with Dr. Galaviz over the phone at 9:15 AM on 12/09/2019. There is a corpus luteum cyst in the right ovary. There is trace free fluid in the right adnexa. The uterus is prominent. The endometrial complex measures 8 mm in thickness. Uterine fibroids are noted. The largest measures approximately 3 cm in greatest dimension. There are 2 tiny cystic areas near the EMC measuring less than 3 mm each. IMPRESSION Right adnexal ectopic as described above *Reading Radiologist: Rod Medrano on 12/09/2019 at 9:21 AM Jacklyn Galaviz DO US ORDERABLES * PAP IG LB+CT+NG+TV+HPV APTIMA RFLX [...] Z20.2 Performed by [facility] ACCOUNT BILL Comment:Ct Poon Cytote chnologist (ASCP) Comment . [facility] ACCOUNT [...] [facility] ACCOUNT BILL Comment: The Thin Prep(R) Food And Drug Inspector was unable to read this specimen. Therefore [...] Resulting Agency Comment Lab Testing performed at: [address] [phone] Jacklyn Galaviz DO LAB - PATHOLOGY/CYTO LOGY ORDERABLES [facility] ACCOUNT BILL [address] [place] [address] * DRUG ABUSE URINE PANEL 7 (12/08/2019 4:03 PM CDT) Amphetamines Screen Urine Negative Cutoff=10 00 ng/mL [facility] INSURANCE BILL Comment:Amphetamine test inc ludes Amphetamine and Methamphetamine. Barbiturates Screen Urine Negative Cutoff=30 0 ng/mL [facility] INSURANCE BILL Benzodiazepines Screen Urine Negative Cutoff=30 0 ng/mL [facility] INSURANCE BILL Cannabinoids Screen Urine Negative Cutoff=50 ng/mL [facility] INSURANCE BILL Cocaine Screen Urine Negative Cutoff=30 0 ng/mL [facility] INSURANCE BILL Opiate Screen Urine Negative Cutoff=30 0 ng/mL [facility] INSURANCE BILL Comment:Opiate test includes Codeine and Morphine only. Phencyclidine Screen Urine Negative Cutoff=25 ng/mL [facility] INSURANCE BILL Urine URINE / Unknown 12/08/2019 4 :03 PM CDT 12/08/2019 Narrative Resulting Agency Comment Lab Testing performed at: [facility] [address] [place] [id number] Jacklyn Galaviz DO LAB - URINE CHEMISTR Y ORDERABLES [facility] INSURANCE BILL [address] [place] [address] * (ABNORMAL) HCG URINE QUALITATIVE - POINT OF CARE (AMB) STL (12/08/2019) HCG Qual Urine Positive( A) Negative HCG Urine QC NEG n NEGATIVE - POSITIVE HCG Urine QC POS p NEGATIVE - POSITIVE Expiration Date 12/07/2020 Lot # [id number] Urine URINE / Unknown 12/08/2019 Jacklyn Galaviz DO LAB - POINT OF CARE ORDERABLES * D-DIMER (09/14/2019 3:59 AM CDT) D-Dimer 0.38 0.27 - 0.50 ug/mL FEU 09/14/2019 4:18 AM CDT [facility] Blood BLOOD SPECIMEN / Unknown Venipuncture / Unknown 09/14/2019 3:59 AM CDT 09/14/2019 4:05 AM CDT Narrative [facility] - 09/14/2019 4:18 AM CDT In the absence of clinical symptoms, a value less than or equal to 0.5 mcg/mL FEU significantly decreases the probability of PE/DVT (negative predictive value >95%). 1 mcg/ml FEU = 1 Fibrinogen Equivalent Unit (approximates 0.5 mcg/mL of D- dimer). Brian Simon MD LAB - COAGULATION OR DERABLES [facility] [address] [place] [address] * HCG URINE QUALITATIVE - POCT (IP) INTERFACED (09/14/2019 2:00 AM CDT) HCG Qual Urine Negative Negative 09/14/2019 2:07 AM CDT [facility] Urine URINE / Unknown 09/14/2019 2 :00 AM CDT 09/14/2019 2:07 AM CDT Provider Unknown LAB - POINT OF CARE ORDERABLES Performing Organization Address City/[facility]/ZIP Co de Phone Number [facility] [address] [place] [phone] * HCG URINE QUAL POCT NOTIFICATION (09/14/2019 1:15 AM CDT) Comment Notification Label Only - See Separate Report 09/14/2019 1:15 AM CDT [facility] Urine URINE / Unknown 0 12:14 AM CDT Brian Simon MD LAB - URINALYSIS ORD ERABLES Performing Organization Address City/[facility] Co de Phone Number [facility] [address] [place] [phone] * B-TYPE NATRIURETIC PEPTIDE (09/13/2019 11:22 PM CDT) BNP <10 <=100 pg/mL 09/13/2019 11:53 PM CDT [facility] Blood BLOOD SPECIMEN / Unknown Venipuncture / Unknown 09/13/2019 11:22 PM CDT 09/13/2019 11:26 PM CDT Narrative [facility] - 09/13/2019 11:53 PM CDT A cutoff of 100 pg/mL has been demonstrated to provide the maximal combination of sensitivity, specificity, and negative predictive value for contributing to the diagnosis of congestive heart failure (CHF) only. A B-Type Natriuretic Peptide (BNP) value greater than or equal to 100 pg/mL is consistent with a diagnosis of CHF in the appropriate clinical setting. False positive results are more common in females greater than 75 years of age. Blood concentrations of natriuretic peptides may also be elevated in patients with myocardial infarction and in patients who are candidates for or are undergoing renal dialysis. Brian Simon MD LAB - CHEMISTRY [facility] Organization Address City/State/ZIP Co de Phone Number [facility] [address] [place] [address] * CT SOFT TISSUE NECK WITH CONTRAST (07/08/2016 7:50 PM CDT) Anatomical Region Laterality Modality Head Computed Tomogra phy 07/08/2016 8:03 PM CDT Narrative 07/08/2016 8:[address] soft tissue neck HISTORY: Neck cellulitis TECHNIQUE: Multiple contiguous axial images of the neck were obtained following intervenous administration of 80 cc of Omnipaque 350 The visualized nasopharynx and oropharynx are grossly normal. There is no tonsillar abscess. The vascular structures enhance normally. Scattered prominent lymph nodes are present throughout the internal jugular lymph node chain and spinal accessory lymph node chain and supraclavicular space. There is a soft tissue mass within the right parotid gland measuring 0.7 x 1.3 cm. The left parotid gland are normal. The submandibular glands are normal. There is a small left thyroid nodule. There is a focal area of subcutaneous soft tissue stranding and skin thickening within the right lateral neck correspond patient's clinical history of cellulitis. A focal area of decreased attenuation within the subcutaneous tissues is present measuring 0.8 x 1.1 cm, see image 91 series 2 which may represent a small subcutaneous abscess. The soft tissues are otherwise normal The visualized mediastinal structures and lungs are clear. DIAGNOSIS: There is right lateral neck soft tissue swelling and skin thickening with a questionable small cutaneous abscess measuring 0.8 x 1.1 cm. A 0.7 x 1.3 cm right parotid gland mass. The findings are nonspecific and could represent a intraparotid lymph node. Follow-up MR or ultrasound is recommended which could be performed as nonemergent outpatient examination Procedure Note Marciano Tolliver MD - 07/08/2016 CT soft tissue neck HISTORY: Neck cellulitis TECHNIQUE: Multiple contiguous axial images of the neck were obtained following intervenous administration of 80 cc of Omnipaque 350 The visualized nasopharynx and oropharynx are grossly normal. There is no tonsillar abscess. The vascular structures enhance normally. Scattered prominent lymph nodes are present throughout the internal jugular lymph node chain and spinal accessory lymph node chain and supraclavicular space. There is a soft tissue mass within the right parotid gland measuring 0.7 x 1.3 cm. The left parotid gland are normal. The submandibular glands are normal. There is a small left thyroid nodule. There is a focal area of subcutaneous soft tissue stranding and skin thickening within the right lateral neck correspond patient's clinical history of cellulitis. A focal area of decreased attenuation within the subcutaneous tissues is present measuring 0.8 x 1.1 cm, see image 91 series 2 which may represent a small subcutaneous abscess. The soft tissues are otherwise normal The visualized mediastinal structures and lungs are clear. DIAGNOSIS: There is right lateral neck soft tissue swelling and skin thickening with a questionable small cutaneous abscess measuring 0.8 x 1.1 cm. A 0.7 x 1.3 cm right parotid gland mass. The findings are nonspecific and could represent a intraparotid lymph node. Follow-up MR or ultrasound is recommended which could be performed as nonemergent outpatient examination Bernice Carranza MD CT ORDERABLES * HCG URINE QUALITATIVE - POINT OF CARE (IP) (07/08/2016 5:31 PM CDT) HCG Qual Urine Negative Negative [facility] POCT TESTING QC Verified Yes Yes [facility] POC T TESTING Urine URINE / Unknown 07/08/2016 5 :31 PM CDT Bernice Carranza MD LAB - POINT OF CARE ORDERABLES [facility] POCT TESTING [address] [phone] Care Teams Graphite Grinder Relationship Specialty Start Date End Date Macy Contreras MD [facility] [place] [address] PCP - General Internal Medicine 09/12/21
--- NOTE | 2024-04-30 13:50 | ED.NAVMDI ---
HPI - Nausea/Vomiting/Diarrhea General Chief complaint: Nausea/Vomiting/Diarrhea <ALLISON Castellanos Last Filed: 04/30/24 13:59> Stated complaint: N/V/D x2 days <ALLISON Castellanos Last Filed: 04/30/24 13:59> Time Seen by Provider: 04/30/24 13:50 <ALLISON Castellanos Last Filed: 04/30/24 13:59> Focused HPI: Patient is a 43 y/o female who presents to the ED with c/o N/V/D. Patient reports sxs began on Friday night with N/V. Later developed diarrhea. Sx's have since persisted. Has not been able to keep down any food or drink. Reports diffuse abd pain, radiating around to her lower back, occasional cough, hoarse voice. Denies fevers. Denies sick contacts. GENERAL: Well-appearing, obese with BMI of 32.1, and in no acute distress. HEAD: Normocephalic, atraumatic. CHEST: Clear to auscultation. ?No respiratory distress. HEART: Regular rate and rhythm.? ABD: Diffuse TTP in upper abdomen. Normoactive BS NEURO: ?Alert and oriented x3. Patient screened in triage and initial orders placed.? ?Additional care and disposition to be based upon?diagnostic testing and treatment. <Jackie Redding PA-C - Last Filed: 04/30/24 13:59> Focused HPI: Patient is a 43 y/o female who presents to the ED with c/o N/V/D. Patient reports sxs began on Friday night with N/V. Later developed diarrhea. Sx's have since persisted. Has not been able to keep down any food or drink. Reports diffuse abd pain, radiating around to her lower back, occasional cough, hoarse voice. Denies fevers. Denies sick contacts. GENERAL: Well-appearing, obese with BMI of 32.1, and in no acute distress. HEAD: Normocephalic, atraumatic. CHEST: Clear to auscultation. ?No respiratory distress. HEART: Regular rate and rhythm.? ABD: Mild TTP in upper abdomen. Normoactive BS NEURO: ?Alert and oriented x3. Patient screened in triage and initial orders placed.? ?Additional care and disposition to be based upon?diagnostic testing and treatment. <Kieran Junior MD - Last Filed: 05/01/24 10:09> Source: patient <Jackie Redding PA-C - Last Filed: 04/30/24 13:59> Mode of arrival: ambulatory <Jackie Redding PA-C - Last Filed: 04/30/24 13:59> Limitations: no limitations <Jackie Redding PA-C - Last Filed: 04/30/24 13:59> History of Present Illness HPI Narrative: Agree with the HPI as described above. <Kieran Junior MD - Last Filed: 05/01/24 10:09> Related Data Home medications: Home Medications ?Medication ?Instructions ?Recorded ?Confirmed ?Last Taken ?Type glipizide 10 mg tablet 10 mg PO BID 04/05/20 04/05/20 Unknown History Reglan 08/17/21 Unknown History <Jackie Redding PA-C - Last Filed: 04/30/24 13:59> Allergies/Adverse reactions: Allergies Allergy/AdvReac Type Severity Reaction Status Date / Time sulfamethoxazole (From Allergy Rash Verified 04/30/24 11:04 Bactrim) trimethoprim (From Bactrim) Allergy Rash Verified 04/30/24 11:04 <Jackie Redding PA-C - Last Filed: 04/30/24 13:59> Review of Systems Review of Systems: As reviewed above in HPI <Kieran Junior MD - Last Filed: 05/01/24 10:09> PMFSH Past Medical History Medical History: Medical History History of diabetes mellitus <Jackie Redding PA-C - Last Filed: 04/30/24 13:59> Social History Social History: Social History Substance use: never Gender identity (if verbalized by the patient): Female <ALLISON Castellanos Last Filed: 04/30/24 13:59> Exam Narrative: GENERAL: [Well-appearing, well-nourished, and in no acute distress.] HEAD: [Normocephalic, atraumatic.] EYES: [PERRLA and EOMI.] ENT: Nares clear, no rhinorrhea or epistaxis. Mucous membranes moist. NECK: Supple. CHEST: [Clear to auscultation. No respiratory distress.] HEART: Tachycardic rate with a regular rhythm. No murmur heard. [Normal peripheral pulses.] ABDOMEN: [Soft, nondistended], mild tenderness to palpation near the epigastrium and umbilicus, [No rigidity or guarding] EXTREMITIES: Normal range of motion. [No edema.] SKIN: Warm, dry, no rash. NEURO: [No focal deficits]. Alert and oriented [x3.] PSYCH: [Normal mood and affect.] <Kieran Junior MD - Last Filed: 05/01/24 10:09> Course Vital Signs Vital signs: Vital Signs Temperature 36.7 C 04/30/24 11:05 Pulse Rate 107 H 04/30/24 11:05 Respiratory Rate 18 04/30/24 11:05 Blood Pressure 130/90 04/30/24 11:05 Pulse Oximetry 98 04/30/24 11:05 Oxygen Delivery Room Air 04/30/24 11:05 Temperature 36.6 C 04/30/24 18:30 Pulse Rate 96 04/30/24 23:24 Respiratory Rate 15 04/30/24 23:24 Blood Pressure 117/74 04/30/24 23:24 Pulse Oximetry 100 04/30/24 23:24 Oxygen Delivery Room Air 04/30/24 11:05 <Jackie Redding PA-C - Last Filed: 04/30/24 13:59> Vital Signs Temperature 36.7 C 04/30/24 11:05 Pulse Rate 107 H 04/30/24 11:05 Respiratory Rate 18 04/30/24 11:05 Blood Pressure 130/90 04/30/24 11:05 Pulse Oximetry 98 04/30/24 11:05 Oxygen Delivery Room Air 04/30/24 11:05 Temperature 36.6 C 04/30/24 18:30 Pulse Rate 96 04/30/24 23:24 Respiratory Rate 15 04/30/24 23:24 Blood Pressure 117/74 04/30/24 23:24 Pulse Oximetry 100 04/30/24 23:24 Oxygen Delivery Room Air 04/30/24 11:05 <Kieran Junior MD - Last Filed: 05/01/24 10:09> MDM - Nausea/Vomiting/Diarrhea MDM Narrative Medical decision making narrative: MSE by WHITLEY in triage. <Jackie Redding PA-C - Last Filed: 04/30/24 13:59> MSE by WHITLEY in triage. 43-year-old female with a past medical history including diabetes, gastroparesis. Presents with 3 days of nausea and vomiting and 2 days of diarrhea. No recent medication changes but she does take Reglan chronically for her gastroparesis and 2 medications for diabetes but no insulin. Was otherwise in her normal state of health, no recent dietary changes or exposure to new foods. No one around her has been sick. No URI symptoms. No urinary symptoms. She is otherwise very well-appearing not any acute distress but reports difficulty tolerating p.o. intake as she has been vomiting. She appears well hydrated not ill-appearing. She is slightly tachycardic with normal vital signs otherwise. No fever, hypoxia significant blood pressure concerns. She has a soft nondistended abdomen with minimal tenderness in the epigastrium region. Differential diagnosis is broad which includes gastritis, gastroenteritis, pancreatitis, gastroparesis, less likely intra-abdominal process such as appendicitis or diverticulitis. Patient will be given Bentyl, Zofran and fluid bolus as well as laboratory studies including CBC, CMP, lipase and a CT scan with contrast for further evaluation. Patient will be reassessed after medications and treatment regimen. Patient felt significantly improved after medications and fluids. Workup shows no leukocytosis, no anemia. Normal platelet count. Initial chemistry panel shows an anion gap of 19 and a bicarb of 19, slightly hyperglycemic at 312. Low suspicion for diabetic ketoacidosis and this is likely GI losses with bicarbonate in the stool causing the low value. Component of nausea and vomiting in addition to starvation ketosis given the elevated beta hydroxybutyrate. Will re-evaluate with repeat BMP after 2 L of fluid will hold off on any insulin at this time. Urinalysis shows evidence of potential UTI with red and white cells, trace leukocyte esterase and bacteria. test is negative. Viral panel is negative. Repeat labs after fluid boluses show improvement in the anion gap down to 15 and lowering of the glucose down to 272. given this improvement suspicion for DKA is very low especially in her clinical setting with normal vital signs, no tachycardia, tachypnea and resolution of her symptoms. will obtain ABG shows normal pH ruling out acidosis. Patient was given a dose of insulin for her hyperglycemia. CT scan shows some uterine fibroids but no other acute process. Patient was treated with Rocephin here for her urinary tract infection and will be able to be discharged home with Keflex for the UTI and given Compazine instead of Reglan for nausea and vomiting to take home given that she is having GI losses with diarrhea. Patient has tolerated p.o. intake here, has not vomited since her arrival to the emergency department and overall appears improved with reassuring and stable vital signs and improved labs. Patient is encouraged to follow-up on a short-term basis with her primary care provider or return if she has any new or worsening symptoms. <Kieran Junior MD - Last Filed: 05/01/24 10:09> Medical Records Attestation: I reviewed the patient's medical records. <Kieran Junior MD - Last Filed: 05/01/24 10:09> Lab Data Attestation: I reviewed the patient's lab results. <Kieran Junior MD - Last Filed: 05/01/24 10:09> Result diagrams: 04/30/24 16:23 04/30/24 19:39 <Jackie Redding PA-C - Last Filed: 04/30/24 13:59> Labs: Lab Results 04/30/24 04/30/24 04/30/24 Range/Units 16:23 18:43 19:39 WBC 6.7 (4.5-10.0) K/mm3 RBC 5.13 (4.2-5.4) M/mm3 Hgb 13.8 (12.0-15.0) g/dL Hct 39.7 (37.0-47.0) % MCV 77.4 L (80-100) fl MCH 26.9 (26-34) pg MCHC 34.8 (32-36) g/dl RDW 15.2 H (11.5-14.5) % Plt Count 309 (150-375) k/mm3 MPV 10.2 (7.4-10.4) fl Immature Gran % (Auto) 0.3 (0-0.5) % Neut % (Auto) 45.6 (45.5-73.1) % Lymph % (Auto) 43.5 (18.3-44.2) % [place] % (Auto) 8.6 H (2.6-8.5) % Eos % (Auto) 1.6 (0-4.4) % Baso % (Auto) 0.4 (0.2-1.2) % Lymph # (Auto) 2.93 (0.9-3.2) K/mm3 [place] # (Auto) 0.6 (0.1-0.6) K/mm3 Eos # (Auto) 0.1 (0-0.3) K/mm3 Baso # (Auto) 0.0 (0.0-0.1) K/mm3 Abs Immat Gran (auto) 0.02 (0.00-0.031) K/mm3 Absolute Neuts (auto) 3.1 (1.3-6.7) K/mm3 Absolute Nucleated RBC 0.000 (0.0-0.012) K/mm3 Nucleated RBC % 0.0 (0.0-0.2) % Methemoglobin (0-1.5) %THb Sodium 135 L 133 L (137-145) mmol/L Potassium 3.7 3.7 (3.4-5.0) mmol/L Chloride 97 L 100 (98-107) mmol/L Carbon Dioxide 19 L 18 L (22-30) mmol/L Anion Gap 19 H 15 H (4-12) mmol/L BUN 13 11 (7-17) mg/dL Creatinine 0.69 L 0.50 L (0.7-1.0) mg/dL Estim Creat Clear Calc 92 123 ml/min Estimated GFR > 60 > 60 (59 - ) Glucose 312 H 272 H (65-110) mg/dL Calcium 8.4 7.9 L (8.4-10.2) mg/dL Total Bilirubin 0.7 (0.2-1.3) mg/dL AST 155 H (14-36) U/L ALT 215 H (6-35) U/L Alkaline Phosphatase 80 (38-126) U/L Total Protein 8.0 (6.3-8.2) g/dL Albumin 4.4 (3.5-5.1) g/dL Lipase 46 (23-300) U/L Beta-Hydroxybutyrate/Acetoacetate 3.16 H (0.02-0.27) mmol/L Urine Color [place] (Yellow) Urine Appearance Cloudy H (Clear) Urine pH 6.0 (5.0-9.0) Ur Specific [place] 1.038 H (1.001-1.035) Urine Protein 2+ H (Negative) mg/dL Urine Glucose (UA) 3+ H (Negative) mg/dL Urine Ketones 4+ H (Negative) mg/dL Ur Blood (Man) 3+ H (Negative) Urine Nitrate Negative (Negative) Urine Bilirubin Negative (Negative) Urine Urobilinogen 1.0 (<2.0) mg/dL Leukocyte Esterase Rfl Trace H (Negative) ZACHERY/UL Urine RBC >100 H (0-2) /hpf Urine WBC 21-50 H (0-3) /hpf Ur Squamous Epith Cells Occasional (Few) /hpf Urine Bacteria 2+ H /hpf Urine Casts 0-2 POC Urine HCG, Qual (Negative) Urine Test Negative Influenza A (RT-PCR) Negative (Negative) Influenza B (RT-PCR) Negative (Negative) RSV (RT-PCR) Negative (Negative) SARS-CoV-2 RNA (RT-PCR) Negative (Negative) 04/30/24 04/30/24 Range/Units 21:31 22:57 WBC (4.5-10.0) K/mm3 RBC (4.2-5.4) M/mm3 Hgb (12.0-15.0) g/dL Hct (37.0-47.0) % MCV (80-100) fl MCH (26-34) pg MCHC (32-36) g/dl RDW (11.5-14.5) % Plt Count (150-375) k/mm3 MPV (7.4-10.4) fl Immature Gran % (Auto) (0-0.5) % Neut % (Auto) (45.5-73.1) % Lymph % (Auto) (18.3-44.2) % [place] % (Auto) (2.6-8.5) % Eos % (Auto) (0-4.4) % Baso % (Auto) (0.2-1.2) % Lymph # (Auto) (0.9-3.2) K/mm3 [place] # (Auto) (0.1-0.6) K/mm3 Eos # (Auto) (0-0.3) K/mm3 Baso # (Auto) (0.0-0.1) K/mm3 Abs Immat Gran (auto) (0.00-0.031) K/mm3 Absolute Neuts (auto) (1.3-6.7) K/mm3 Absolute Nucleated RBC (0.0-0.012) K/mm3 Nucleated RBC % (0.0-0.2) % Methemoglobin 0.3 (0-1.5) %THb Sodium (137-145) mmol/L Potassium (3.4-5.0) mmol/L Chloride (98-107) mmol/L Carbon Dioxide (22-30) mmol/L Anion Gap (4-12) mmol/L BUN (7-17) mg/dL Creatinine (0.7-1.0) mg/dL Estim Creat Clear Calc ml/min Estimated GFR (59 - ) Glucose (65-110) mg/dL Calcium (8.4-10.2) mg/dL Total Bilirubin (0.2-1.3) mg/dL AST (14-36) U/L ALT (6-35) U/L Alkaline Phosphatase (38-126) U/L Total Protein (6.3-8.2) g/dL Albumin (3.5-5.1) g/dL Lipase (23-300) U/L Beta-Hydroxybutyrate/Acetoacetate (0.02-0.27) mmol/L Urine Color (Yellow) Urine Appearance (Clear) Urine pH (5.0-9.0) Ur Specific [place] (1.001-1.035) Urine Protein (Negative) mg/dL Urine Glucose (UA) (Negative) mg/dL Urine Ketones (Negative) mg/dL Ur Blood (Man) (Negative) Urine Nitrate (Negative) Urine Bilirubin (Negative) Urine Urobilinogen (<2.0) mg/dL Leukocyte Esterase Rfl (Negative) ZACHERY/UL Urine RBC (0-2) /hpf Urine WBC (0-3) /hpf Ur Squamous Epith Cells (Few) /hpf Urine Bacteria /hpf Urine Casts POC Urine HCG, Qual Negative (Negative) Urine Test Influenza A (RT-PCR) (Negative) Influenza B (RT-PCR) (Negative) RSV (RT-PCR) (Negative) SARS-CoV-2 RNA (RT-PCR) (Negative) <Jackie Redding PA-C - Last Filed: 04/30/24 13:59> Lab Results 04/30/24 04/30/24 04/30/24 Range/Units 16:23 18:43 19:39 WBC 6.7 (4.5-10.0) K/mm3 RBC 5.13 (4.2-5.4) M/mm3 Hgb 13.8 (12.0-15.0) g/dL Hct 39.7 (37.0-47.0) % MCV 77.4 L (80-100) fl MCH 26.9 (26-34) pg MCHC 34.8 (32-36) g/dl RDW 15.2 H (11.5-14.5) % Plt Count 309 (150-375) k/mm3 MPV 10.2 (7.4-10.4) fl Immature Gran % (Auto) 0.3 (0-0.5) % Neut % (Auto) 45.6 (45.5-73.1) % Lymph % (Auto) 43.5 (18.3-44.2) % [place] % (Auto) 8.6 H (2.6-8.5) % Eos % (Auto) 1.6 (0-4.4) % Baso % (Auto) 0.4 (0.2-1.2) % Lymph # (Auto) 2.93 (0.9-3.2) K/mm3 [place] # (Auto) 0.6 (0.1-0.6) K/mm3 Eos # (Auto) 0.1 (0-0.3) K/mm3 Baso # (Auto) 0.0 (0.0-0.1) K/mm3 Abs Immat Gran (auto) 0.02 (0.00-0.031) K/mm3 Absolute Neuts (auto) 3.1 (1.3-6.7) K/mm3 Absolute Nucleated RBC 0.000 (0.0-0.012) K/mm3 Nucleated RBC % 0.0 (0.0-0.2) % Methemoglobin (0-1.5) %THb Sodium 135 L 133 L (137-145) mmol/L Potassium 3.7 3.7 (3.4-5.0) mmol/L Chloride 97 L 100 (98-107) mmol/L Carbon Dioxide 19 L 18 L (22-30) mmol/L Anion Gap 19 H 15 H (4-12) mmol/L BUN 13 11 (7-17) mg/dL Creatinine 0.69 L 0.50 L (0.7-1.0) mg/dL Estim Creat Clear Calc 92 123 ml/min Estimated GFR > 60 > 60 (59 - ) Glucose 312 H 272 H (65-110) mg/dL Calcium 8.4 7.9 L (8.4-10.2) mg/dL Total Bilirubin 0.7 (0.2-1.3) mg/dL AST 155 H (14-36) U/L ALT 215 H (6-35) U/L Alkaline Phosphatase 80 (38-126) U/L Total Protein 8.0 (6.3-8.2) g/dL Albumin 4.4 (3.5-5.1) g/dL Lipase 46 (23-300) U/L Beta-Hydroxybutyrate/Acetoacetate 3.16 H (0.02-0.27) mmol/L Urine Color [place] (Yellow) Urine Appearance Cloudy H (Clear) Urine pH 6.0 (5.0-9.0) Ur Specific [place] 1.038 H (1.001-1.035) Urine Protein 2+ H (Negative) mg/dL Urine Glucose (UA) 3+ H (Negative) mg/dL Urine Ketones 4+ H (Negative) mg/dL Ur Blood (Man) 3+ H (Negative) Urine Nitrate Negative (Negative) Urine Bilirubin Negative (Negative) Urine Urobilinogen 1.0 (<2.0) mg/dL Leukocyte Esterase Rfl Trace H (Negative) ZACHERY/UL Urine RBC >100 H (0-2) /hpf Urine WBC 21-50 H (0-3) /hpf Ur Squamous Epith Cells Occasional (Few) /hpf Urine Bacteria 2+ H /hpf Urine Casts 0-2 POC Urine HCG, Qual (Negative) Urine Test Negative Influenza A (RT-PCR) Negative (Negative) Influenza B (RT-PCR) Negative (Negative) RSV (RT-PCR) Negative (Negative) SARS-CoV-2 RNA (RT-PCR) Negative (Negative) 04/30/24 04/30/24 Range/Units 21:31 22:57 WBC (4.5-10.0) K/mm3 RBC (4.2-5.4) M/mm3 Hgb (12.0-15.0) g/dL Hct (37.0-47.0) % MCV (80-100) fl MCH (26-34) pg MCHC (32-36) g/dl RDW (11.5-14.5) % Plt Count (150-375) k/mm3 MPV (7.4-10.4) fl Immature Gran % (Auto) (0-0.5) % Neut % (Auto) (45.5-73.1) % Lymph % (Auto) (18.3-44.2) % [place] % (Auto) (2.6-8.5) % Eos % (Auto) (0-4.4) % Baso % (Auto) (0.2-1.2) % Lymph # (Auto) (0.9-3.2) K/mm3 [place] # (Auto) (0.1-0.6) K/mm3 Eos # (Auto) (0-0.3) K/mm3 Baso # (Auto) (0.0-0.1) K/mm3 Abs Immat Gran (auto) (0.00-0.031) K/mm3 Absolute Neuts (auto) (1.3-6.7) K/mm3 Absolute Nucleated RBC (0.0-0.012) K/mm3 Nucleated RBC % (0.0-0.2) % Methemoglobin 0.3 (0-1.5) %THb Sodium (137-145) mmol/L Potassium (3.4-5.0) mmol/L Chloride (98-107) mmol/L Carbon Dioxide (22-30) mmol/L Anion Gap (4-12) mmol/L BUN (7-17) mg/dL Creatinine (0.7-1.0) mg/dL Estim Creat Clear Calc ml/min Estimated GFR (59 - ) Glucose (65-110) mg/dL Calcium (8.4-10.2) mg/dL Total Bilirubin (0.2-1.3) mg/dL AST (14-36) U/L ALT (6-35) U/L Alkaline Phosphatase (38-126) U/L Total Protein (6.3-8.2) g/dL Albumin (3.5-5.1) g/dL Lipase (23-300) U/L Beta-Hydroxybutyrate/Acetoacetate (0.02-0.27) mmol/L Urine Color (Yellow) Urine Appearance (Clear) Urine pH (5.0-9.0) Ur Specific [place] (1.001-1.035) Urine Protein (Negative) mg/dL Urine Glucose (UA) (Negative) mg/dL Urine Ketones (Negative) mg/dL Ur Blood (Man) (Negative) Urine Nitrate (Negative) Urine Bilirubin (Negative) Urine Urobilinogen (<2.0) mg/dL Leukocyte Esterase Rfl (Negative) ZACHERY/UL Urine RBC (0-2) /hpf Urine WBC (0-3) /hpf Ur Squamous Epith Cells (Few) /hpf Urine Bacteria /hpf Urine Casts POC Urine HCG, Qual Negative (Negative) Urine Test Influenza A (RT-PCR) (Negative) Influenza B (RT-PCR) (Negative) RSV (RT-PCR) (Negative) SARS-CoV-2 RNA (RT-PCR) (Negative) <Kieran Junior MD - Last Filed: 05/01/24 10:09> ABG Data ABG results: 04/30/24 04/30/24 22:26 22:57 Puncture Site Right brachial ABG pH 7.417 ABG pCO2 30.6 L ABG pO2 84.1 ABG PO2/FiO2 Ratio 4.00 ABG HCO3 19.3 L ABG O2 Saturation 96.6 ABG O2 Content 16.3 ABG Base Excess -4.2 VBG pH Cancelled VBG pCO2 Cancelled VBG pO2 Cancelled VBG HCO3 Cancelled A-a Gradient 29.0 Oxyhemoglobin 94.6 Carboxyhemoglobin 1.0 Reduced Hemoglobin 4.1 Total Hemoglobin 12.2 O2 Delivery Device Cancelled Room air O2 Liters/Min Cancelled 0.0 FiO2 Cancelled 21 <Jackie Redding PA-C - Last Filed: 04/30/24 13:59> 04/30/24 04/30/24 22:26 22:57 Puncture Site Right brachial ABG pH 7.417 ABG pCO2 30.6 L ABG pO2 84.1 ABG PO2/FiO2 Ratio 4.00 ABG HCO3 19.3 L ABG O2 Saturation 96.6 ABG O2 Content 16.3 ABG Base Excess -4.2 VBG pH Cancelled VBG pCO2 Cancelled VBG pO2 Cancelled VBG HCO3 Cancelled A-a Gradient 29.0 Oxyhemoglobin 94.6 Carboxyhemoglobin 1.0 Reduced Hemoglobin 4.1 Total Hemoglobin 12.2 O2 Delivery Device Cancelled Room air O2 Liters/Min Cancelled 0.0 FiO2 Cancelled 21 <Kieran Junior MD - Last Filed: 05/01/24 10:09> Imaging Data Attestation: I personally reviewed and interpreted this imaging study as follows: <Kieran Junior MD - Last Filed: 05/01/24 10:09> My impression: Impressions Abdomen/Pelvis CT 04/30/24 21:53 IMPRESSION: 1. Uterine fibroids. <Kieran Junior MD - Last Filed: 05/01/24 10:09> Discharge Plan Discharge Clinical Impression: Diabetes mellitus with gastroparesis, Diarrhea, Uterine fibroid, Nausea & vomiting, Urinary tract infection, Hyperglycemia due to type 2 diabetes mellitus <Jackie Redding PA-C - Last Filed: 04/30/24 13:59> Patient Disposition: Home, Self-Care <Jackie Redding PA-C - Last Filed: 04/30/24 13:59> Condition: Stable <ALLISON Castellanos Last Filed: 04/30/24 13:59> Instructions: Antibiotic Form, Diabetic Gastroparesis (DC), Clear Liquid Diet (ED), Acute Nausea and Vomiting (ED), Acute Diarrhea (ED) <ALLISON Castellanos Filed: 04/30/24 13:59> Additional Instructions: We will send you home with different nausea controlling medications as your diarrhea could be secondary to the Reglan you are using or due to the mild urinary tract infection. Your CT scan is reassuring, but it does show uterine fibroids but no acute concerning findings or infections. You likely have a flare of her gastroparesis. We will send you home with antibiotics such as Keflex and nausea controlling medications including Compazine. Do not take Reglan and Compazine together, only take one or the other for nausea and vomiting. Follow-up with your regular doctor and take your medications for your type 2 diabetes. Return with any new or worsening concerns at any time. If you develop any new or worsening abdominal pain, developing shortness of breath, fast breathing or any other concerns return to the ER. <ALLISON Castellanos Filed: 04/30/24 13:59> Patient Language: Welsh <ALLISON Castellanos Filed: 04/30/24 13:59> Prescriptions: New prochlorperazine maleate [Compazine] 10 mg tablet 10 mg PO Q6H PRN (Reason: nausea and vomiting) Qty: 14 0RF cephalexin 500 mg capsule 500 mg PO Q12H 5 Days Qty: 10 0RF No Action metoclopramide HCl [Reglan] 10 mg tablet 10 mg PO Q6H PRN (Reason: nausea and vomiting) Qty: 20 0RF glipizide 10 mg Tablet 10 mg PO BID Reglan <ALLISON Castellanos Last Filed: 04/30/24 13:59> Follow-up/Referrals: PHYSICIAN NOT ON STAFF,NONSTAFF [Non-Staff] - 3 Days Wei Jacques MD [Physician] - 3 Days <ALLISON Castellanos Last Filed: 04/30/24 13:59> Stand Alone Forms: Work/School Release IP <ALLISON Castellanos Filed: 04/30/24 13:59> Time of Disposition: 23:20 <Jackie Redding PA-C - Last Filed: 04/30/24 13:59> 23:20 <Kieran Junior MD - Last Filed: 05/01/24 10:09>
--- OUTSIDE RECORDS SUMMARY | 2024-04-30 14:12 | XMS_ITS | Clinical Summary ---
Author Organization [facility] [employer] Address [address] [place] [address] Care Team Providers Care Instrument Calibrator Name Role Phone Macy Contreras MD Primary Care Provider [phone] Source Comments [facility] [employer],non-owned Affiliates and Associated Physician Practices is amultiple site organization consisting of ambulatory clinics and hospital sitesin [place], [place], [place] and [place]. This disclosure is being madepursuant to the Care Everywhere program and may not contain all information available regarding this patient. Last updated 17.[facility] [employer] Allergies Active Allergy Reactions Criticality Noted Date [...] Comments Blood Pressure 124/81 03/20/2023 7:31 AM [employer]OURCE DEVELOP[employer] Pulse 97 03/20/2023 7:31 AM [employer]OP[employer] Temperature 36.3 C (97.3 F) 03/20/2023 7:31 AM [employer]ELOP[employer] Respiratory Rate 18 03/20/2023 7:31 AM [employer]ELOPMENT Oxygen Saturation 99% 03/20/2023 7:31 AM [employer]OP[employer] Inhaled Oxygen Concentration - - Weight 83.9 kg (185 lb) 03/20/2023 1:08 AM [employer] Height 160 cm (5' 3 ) 03/20/2023 1:08 AM [employer]ELOPMENT Body Mass Index 32.77 03/20/2023 1:08 AM [employer]ELOPMENT Plan of Treatment Health Maintenance Due Date [...] Comments HEMOGLOBIN A1C STAT 03/20/2023 10:46 AM [employer]OURCE DEVELOPMENT 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) BASIC METABOLIC PANEL (CALCIUM TOTAL) STAT 03/20/2023 4:21 AM [employer] Nausea and vomiting, unspecified vomiting type MAMMO BILAT SCREENING W TRISTEN Routine 04/10/2021 9:23 AM DIRECTOR OF [employer]OURCE DEVELOPMENT Breast screening PAP IG LB+CT+NG+TV+HPV APTIMA RFLX 16,18/45 Routine 12/08/2019 4:03 PM CDT Positive test (HCC) from Last 3 Months or Most Recently Relevant to Health Maintenance Results * (ABNORMAL) HEMOGLOBIN A1C (03/20/2023 10:46 AM [employer]ELOPMENT) Hemoglobin A1c 7.3(H) <5.7 % 03/20/2023 10:59 AM [employer]OURCE DEVELOP[employer] [facility] Estimated Average Glucose 163 mg/dL 03/20/2023 10:59 AM [employer]OURCE DEVELOPMENT [facility] Blood BLOOD SPECIMEN / Unknown Venipuncture / Unknown 03/20/2023 10:46 AM [employer]ELOPMENT 03/20/2023 10:49 AM [employer] DEVELOPMENT Narrative [facility] - 03/20/2023 10:59 AM [employer]OURCE DEVELOPMENT HbA1c Interpretation: Normal: < 5.7% Pre-diabetes: 5.7-6.4% [...] Kirby Fernández MD LAB - CHEMISTRY ORDERABLES Performing Organization Address City/State/[facility] Co de Phone Number [facility] [address] [place] [address] * (ABNORMAL) BASIC METABOLIC PANEL (CALCIUM TOTAL) (03/20/2023 4:21 AM DIRECT[employer]OURCE DEVELOPMENT) Glucose 208(H) 70 - 105 mg/dL 03/20/2023 4:57 AM [facility] Sodium 135(L) 136 - 145 mmol/L 03/20/2023 4:57 AM [facility] Potassium 3.5 3.5 - 5.1 mmol/L 03/20/2023 4:57 AM [facility] Chloride 106 98 - 107 mmol/L 03/20/2023 4:57 AM [facility] CO2 16(L) 22 - 29 mmol/L 03/20/2023 4:57 AM [facility] Calcium 8.3(L) 8.4 - 10.4 mg/dL 03/20/2023 4:57 AM [facility] Anion Gap 13 6 - 16 mmol/L 03/20/2023 4:57 AM [facility] BUN 8 5.3 - 18.7 mg/dL 03/20/2023 4:57 AM [facility] Creatinine 0.77 0.57 - 1.11 mg/dL 03/20/2023 4:57 AM [employer]ELOPMENT [facility] eGFR by CKD-EPI >90 >=90 mL/min/1.7 3 m2 03/20/2023 4:57 AM [employer] DEVELOPMENT [facility] Blood BLOOD SPECIMEN / Unknown Venipuncture / Unknown 03/20/2023 4:21 AM [employer]OPMENT 03/20/2023 4:27 AM [employer]OURCE DEVELOPMENT Rocio Rai MD LAB - CHEMISTRY OSCAR NUÑEZ [facility] [address] [place] [address] * MAMMO BILAT SCREENING W TRISTEN (04/10/2021 9:23 AM [employer]ELOPMENT) Anatomical Region Laterality Modality Breast Bilateral Mammography 04/10/2021 10:5 3 AM [employer]OPMENT Impressions 04/10/2021 10:54 AM [employer]OR [employer]OURCE DEVELOPMENT There is no mammographic evidence of malignancy. OVERALL FINAL ASSESSMENT: BI-RADS CATEGORY 1: NEGATIVE. Annual screening mammography is recommended. *Reading Radiologist: Mary Dougherty on 04/10/2021 at 10:54 AM Narrative 04/10/2021 10:54 AM DIRECTOR [employer]OURCE DEVELOPMENT EXAMINATION: BILATERAL DIGITAL SCREENING MAMMOGRAM AND BILATERAL [...] [facility] ACCOUNT BILL Comment: The [employer]) Extermination Supervisor was unable to read this specimen. Therefore [...] Resulting Agency Comment Lab Testing performed at: [address] [phone] Jacklyn Galaviz DO LAB - PATHOLOGY/CYTO LOGY ORDERABLES [facility] ACCOUNT BILL [id number] [place] [address] from Last 3 Months or Most Recently Relevant to Health Maintenance Advance Directives * Full Code (Latest Code Status on File) Date Activated Date Inactivated Comments 03/19/2023 9:26 PM 03/20/2023 5:34 PM * Full Code Date Activated Date Inactivated Comments 11/28/2022 9:40 PM 12/02/2022 12:02 PM * Full Code Date Activated Date Inactivated Comments 08/14/2021 2:27 PM 08/16/2021 6:16 PM Care Teams Instrument Calibrator Relationship Specialty Start Date End Date Macy Contreras MD [address] [place] [id number] PCP - General Internal Medicine 09/12/21
--- OUTSIDE RECORDS SUMMARY | 2024-04-30 14:12 | XMS_ITS | Patient Health Summary ---
Author Organization [facility] [place] Address [address] [place] [address] Care Team Providers Care Auto Glass Installer Name Role Phone Macy Contreras MD Primary Care Provider [phone] Note from [facility],non-owned Affiliates and Associated Physician Practices is amultiple site organization consisting of ambulatory clinics and hospital sitesin [place], [place], [place] and [place]. This disclosure is being madepursuant to the Care Everywhere program and may not contain all information available regarding this patient. Last updated 17.[facility] Allergies * Sulfamethoxazole W-Trimethoprim(Urticaria,Itching) -Medium Criticality Medications [...] Comments Blood Pressure 124/81 03/20/2023 7:31 AM [employer] MANAGER Pulse 97 03/20/2023 7:31 AM [employer] MANAGER Temperature 36.3 C (97.3 F) 03/20/2023 7:31 AM [employer] MANAGER Respiratory Rate 18 03/20/2023 7:31 AM [employer] MANAGER Oxygen Saturation 99% 03/20/2023 7:31 AM [employer] MANAGER Inhaled Oxygen Concentration - - Weight 83.9 kg (185 lb) 03/20/2023 1:08 AM [employer] MANAGER Height 160 cm (5' 3 ) 03/20/2023 1:08 AM [employer] MANAGER Body Mass Index 32.77 03/20/2023 1:08 AM [employer] MANAGER Procedures * GLUCOSE - POINT OF CARE(Performed [...] (STL)(Performed 09/13/2021) Performed for Hepatic steatosis * NE LAP,CHOLECYSTECTOMY(Performed 09/13/2021) * GLUCOSE - POINT OF [...] 12/09/2019) * BLOOD TYPE VERIFICATION(Performed 12/09/2019) * NE EXPLORATORY OF ABDOMEN(Performed 12/09/2019) * GLUCOSE - POINT OF CARE(Performed 12/09/2019) * TYPE + SCREEN PANEL(Performed 12/09/2019) 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) * CBC W AUTO DIFFERENTIAL(Performed 12/09/2019) 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) * US OB TRANSVAGINAL DOPPLER(Performed 12/09/2019) Performed for Positive test (HCC) * PAP IG LB+CT+NG+TV+HPV APTIMA RFLX 16,18/45(Performed 12/08/2019) Performed for Positive test ([facility]) * DRUG ABUSE URINE PANEL 7(Performed 12/08/2019) Performed for Positive test ([facility]) * CULTURE URINE(Performed 12/08/2019) Performed for Positive test ([facility]) * HCG URINE QUALITATIVE - POINT OF CARE (AMB) STL(Performed 12/08/2019) Performed for Positive test ([facility]) * CARDIAC EKG ORDER(Performed 09/21/2019) * D-DIMER(Performed [...] - POINT OF CARE (03/20/2023 11:36 AM [employer] MANAGER) Only the most recent of49 resultswithin the time period is included. Glucose WB/POC 294(H) 70 - 106 mg/dL 03/20/2023 11:37 AM [employer] MANAGER [facility] Specimen Type Cap Fingerstick 2023 11:37 AM [employer] MANAGER [facility] Blood BLOOD SPECIMEN / Unknown 03/20/2023 11:36 AM [employer] MANAGER 03/20/2023 11:37 AM [employer] MANAGER Kirby Fernández MD LAB - POINT OF CARE ORDERABLES Performing Organization Address City/[facility]/ZIP Co de Phone Number [facility] [address] [place] [address] * (ABNORMAL) HEMOGLOBIN A1C (03/20/2023 10:46 AM [employer] MANAGER) Only the most recent of4 resultswithin the time period is included. Hemoglobin A1c 7.3(H) <5.7 % 03/20/2023 10:59 AM [employer] MANAGER [facility] Estimated Average Glucose 163 mg/dL 03/20/2023 10:59 AM [employer] MANAGER [facility] Blood BLOOD SPECIMEN / Unknown Venipuncture / Unknown 03/20/2023 10:46 AM [employer] MANAGER 03/20/2023 10:49 AM [employer] MANAGER Narrative [facility] - 03/20/2023 10:59 AM [employer] MANAGER HbA1c Interpretation: Normal: < 5.7% Pre-diabetes: 5.7-6.4% [...] Kirby Fernández MD LAB - CHEMISTRY ORDERABLES [facility] [address] [place] [address] * (ABNORMAL) BASIC METABOLIC PANEL (CALCIUM TOTAL) (03/20/2023 4:21 AM [employer] MANAGER) Only the most recent of7 resultswithin the time period is included. Glucose 208(H) 70 - 105 mg/dL 03/20/2023 4:57 AM [facility] Sodium 135(L) 136 - 145 mmol/L 03/20/2023 4:57 AM [facility] Potassium 3.5 3.5 - 5.1 mmol/L 03/20/2023 4:57 AM [facility] Chloride 106 98 - 107 mmol/L 03/20/2023 4:57 AM [facility] CO2 16(L) 22 - 29 mmol/L 03/20/2023 4:57 AM [facility] Calcium 8.3(L) 8.4 - 10.4 mg/dL 03/20/2023 4:57 AM [facility] Anion Gap 13 6 - 16 mmol/L 03/20/2023 4:57 AM [facility] BUN 8 5.3 - 18.7 mg/dL 03/20/2023 4:57 AM [facility] Creatinine 0.77 0.57 - 1.11 mg/dL 03/20/2023 4:57 AM [facility] eGFR by CKD-EPI >90 >=90 mL/min/1.7 3 m2 03/20/2023 4:57 AM [facility] Blood BLOOD SPECIMEN / Unknown Venipuncture / Unknown 03/20/2023 4:21 AM [employer] MANAGER 03/20/2023 4:27 AM [facility] Rocio Rai MD LAB - CHEMISTRY OSCAR NUÑEZ [facility] Organization Address City/State/ZIP Co de Phone Number [facility] [address] [place] [address] * MAGNESIUM BLOOD (03/20/2023 4:21 AM [employer] MANAGER) Only the most recent of10 resultswithin the time period is included. Magnesium 1.8 1.6 - 2.6 mg/dL 03/20/2023 4:57 AM [employer] MANAGER [facility] Blood BLOOD SPECIMEN / Unknown Venipuncture / Unknown 03/20/2023 4:21 AM [employer] MANAGER 03/20/2023 4:27 AM [employer] MANAGER Rocio Rai MD LAB - CHEMISTRY OSCAR NUÑEZ Performing Organization Address [facility] Co de Phone Number [facility] [address] [place] [address] * (ABNORMAL) URINE MICROSCOPIC ONLY REFLEX TO CULTURE (03/19/2023 4:13 PM [employer] MANAGER) Only the most recent of2 resultswithin the time period is included. Reflex Status Culture not indicated 03/19/2023 4:50 PM [employer] MANAGER [facility] RBC UA 0-2 0 - 5 # /hpf 03/19/2023 4:50 PM [employer] MANAGER [facility] WBC UA 0-5 0 - 5 # /hpf 03/19/2023 4:50 PM [employer] MANAGER [facility] Bacteria UA None Seen None Seen 03/19/2023 4:50 PM [employer] MANAGER [facility] Squamous Epithelial Cells 0-2 0 - 5 /hpf 03/19/2023 4:50 PM [employer] MANAGER [facility] Mucus UA 1+ /LPF 03/19/2023 4:50 PM [employer] MANAGER [facility] Hyaline Casts 6-10(A) 0 - 2 /LPF 03/19/2023 4:50 PM [employer] MANAGER [facility] Urine URINE SPECIMEN OBTAINED BY CLEAN CATCH PROCEDURE / Unknown Collection / Unknown 03/19/2023 4:13 PM [employer] MANAGER 03/19/2023 4:35 PM [employer] MANAGER Narrative [facility] - 03/19/2023 4:50 PM [employer] MANAGER Altagracia Quesada UNIT AID-PREDATOR CONTROL TRAPPER LAB - URIN ALYSIS ORDERABLES Performing Organization Address [facility]/ZIP Co de Phone Number [facility] [address] [place], [place] [id number] * (ABNORMAL) URINALYSIS REFLEX MICROSCOPIC REFLEX CULTURE (03/19/2023 4:13 PM [employer] MANAGER) Only the most recent of2 resultswithin the time period is included. Color UA Yellow Straw, Yellow 03/19/2023 4:49 PM [employer] MANAGER [facility] Clarity UA Clear Clear 03/19/2023 4:49 PM [employer] MANAGER [facility] Glucose UA 3+(A) Negative 03/19/2023 4:49 PM [employer] MANAGER [facility] Bilirubin UA Negative Negative 03/19/2023 4:49 PM [employer] MANAGER [facility] Ketone UA 2+(A) Negative 03/19/2023 4:49 PM [employer] MANAGER [facility] Specific Adams UA 1.031(H) 1.005 - 1.030 03/19/2023 4:49 PM [employer] MANAGER [facility] Blood UA 2+(A) Negative 03/19/2023 4:49 PM [employer] MANAGER [facility] pH UA 6.0 5.0 - 8.0 pH 03/19/2023 4:49 PM [employer] MANAGER [facility] Protein UA 2+(A) Negative 03/19/2023 4:49 PM [employer] MANAGER [facility] Urobilinogen UA Negative Negative mg/dL 03/19/2023 4:49 PM [employer]O MANAGER [facility] Nitrite UA Negative Negative 03/19/2023 4:49 PM [employer] MANAGER [facility] Leukocyte UA Negative Negative 03/19/2023 4:49 PM [employer] MANAGER [facility] Urine Microscopy Urine microscopy to follow 03/19/2023 4:49 PM [employer] MANAGER [facility] Reflex Status Culture not indicated 03/19/2023 4:49 PM [employer] MANAGER [facility] Urine URINE SPECIMEN OBTAINED BY CLEAN CATCH PROCEDURE / Unknown Collection / Unknown 03/19/2023 4:13 PM [employer] T[employer] MANAGER 03/19/2023 4:35 PM [employer] MANAGER Narrative [facility] - 03/19/2023 4:49 PM [employer] MANAGER Altagracia Quesada UNIT AID-PREDATOR CONTROL TRAPPER LAB - URIN ALYSIS ORDERABLES [facility] [address] [place] [address] * HCG URINE QUALITATIVE (03/19/2023 4:13 PM [employer] MANAGER) Only the most recent of3 resultswithin the time period is included. hCG Qualitative Urine Negative Negative 03/19/2023 4:48 PM [employer] MANAGER [facility] Urine URINE / Unknown Collection / Unknown 03/19/2023 4:13 PM [employer] MANAGER 03/19/2023 4:35 PM [employer] T[employer]O MANAGER Narrative [facility] - 03/19/2023 4:48 PM [employer] MANAGER Specimens containing human anti-mouse antibodies may exhibit false positive or false negative results. If qualitative interpretation is inconsistent with clinical evaluation, consider confirmation by an alternative hCG method. Altagracia Keren RadhaKellyArmijo UNIT AID-PREDATOR CONTROL TRAPPER LAB - URIN ALYSIS ORDERABLES [facility] [address] [place] [address] * URINE DRUG SCREEN IMMUNOASSAY (03/19/2023 4:13 PM [employer] MANAGER) [facility] Amphetamines Screen Urine Not detected Not detected 03/19/2023 5:07 PM [facility] Barbiturates Screen Urine Not detected Not detected 03/19/2023 5:07 PM [facility] Benzodiazepines Screen Urine Not detected Not detected 03/19/2023 5:07 PM [facility] Cannabinoids Screen Urine Not detected Not detected 03/19/2023 5:07 PM [facility] Cocaine Screen Urine Not detected Not detected 03/19/2023 5:07 PM [facility] Fentanyl Urine Not detected Not detected 03/19/2023 5:07 PM [facility] Methadone Screen Urine Not detected Not detected 03/19/2023 5:07 PM [facility] Opiate Screen Urine Not detected Not detected 03/19/2023 5:07 PM [facility] Phencyclidine Screen Urine Not detected Not detected 03/19/2023 5:07 PM [facility] Urine URINE / Unknown Collection / Unknown 03/19/2023 4:13 PM [employer] MANAGER 03/19/2023 4:35 PM [employer] MANAGER Narrative [facility] - 03/19/2023 5:07 PM [employer] MANAGER This drug screen is designed for MEDICAL [...] 300 ng/mL PHENCYCLIDINE(PCP) 25 ng/mL Altagracia Quesada [facility] LAB - URIN E CHEMISTRY ORDERABLES Performing Organization Address [facility] de Phone Number [facility] [address] [place] [phone] * (ABNORMAL) HYDROXYBUTYRATE BETA (03/19/2023 4:08 PM [employer] MANAGER) Only the most recent of6 resultswithin the time period is included. [facility] Beta-Hydroxybu tyrate 4.09(H) <0.50 mmol/L 03/19/2023 4:31 PM [employer] MANAGER [facility] Blood BLOOD SPECIMEN / Unknown Venipuncture / Unknown 03/19/2023 4:08 PM [employer] MANAGER 03/19/2023 4:14 PM [employer] MANAGER Narrative [facility] - 03/19/2023 4:31 PM [employer] MANAGER Results >1.5 mmol/L may be indicative of diabetic ketoacidosis. Use in conjunction with Serum Glucose levels. Altagracia Quesada [facility] - CHEM ISTRY ORDERABLES Performing Organization Address [facility] Phone Number [facility] [id number] [place] [phone] * (ABNORMAL) CBC W AUTO DIFFERENTIAL (03/19/2023 4:08 PM [employer] MANAGER) Only the most recent of12 resultswithin the time period is included. Pathologist [facility] WBC 8.4 4.0 - 10.7 x10E9/L 03/19/2023 4:16 PM [employer] MANAGER [facility] RBC Count 5.36(H) 3.90 - 5.20 x10E12/L 03/19/2023 4:16 PM [employer] MANAGER [facility] Hemoglobin 14.4 11.9 - 15.8 g/dL 03/19/2023 4:16 PM [employer] T[employer]O MANAGER [facility] Hematocrit 40.7 34.8 - 46.1 % 03/19/2023 4:16 PM PEOPLESOFT TALEO MANAGER [facility] MCV 75.9(L) 80.0 - 98.0 fL 03/19/2023 4:16 PM [facility] MCH 26.9 26.7 - 33.6 pg 03/19/2023 4:16 PM [facility] MCHC 35.4 31.7 - 36.3 g/dL 03/19/2023 4:16 PM [facility] RDW-CV 14.1 11.3 - 14.8 % 03/19/2023 4:16 PM [facility] Platelet Count 425(H) 150 - 420 x10E9/L 03/19/2023 4:16 PM [facility] MPV 9.4 7.8 - 11.4 fL 03/19/2023 4:16 PM [facility] Neutrophil % 54.3 41.0 - 74.0 % 03/19/2023 4:16 PM [facility] Lymphocyte % 37.3 17.0 - 47.0 % 03/19/2023 4:16 PM [facility] Monocyte % 7.0 3.0 - 11.0 % 03/19/2023 4:16 PM [facility] Eosinophil % 0.5 0.0 - 7.0 % 03/19/2023 4:16 PM [facility] Basophil % 0.7 0.0 - 1.6 % 03/19/2023 4:16 PM [facility] Immature Granulocytes % 0.2 0.0 - 1.0 % 03/19/2023 4:16 PM [facility] Neutrophil Absolute 4.54 1.60 - 7.50 x10E9/L 03/19/2023 4:16 PM [facility] Lymphocyte Absolute 3.12 1.00 - 4.40 x10E9/L 03/19/2023 4:16 PM [facility] Monocyte Absolute 0.59 0.15 - 1.00 x10E9/L 03/19/2023 4:16 PM [facility] Eosinophil Absolute 0.04 0.00 - 0.60 x10E9/L 03/19/2023 4:16 PM [facility] Basophil Absolute 0.06 0.00 - 0.13 x10E9/L 03/19/2023 4:16 PM [facility] Blood BLOOD SPECIMEN / Unknown Venipuncture / Unknown 03/19/2023 4:08 PM [employer] MANAGER 03/19/2023 4:14 PM [employer] MANAGER Altagracia Veliz Dipak UNIT AID-PREDATOR CONTROL TRAPPER LAB - PENELOPE TOLOGY ORDERABLES [facility] [address] [place] [address] * (ABNORMAL) COMPREHENSIVE METABOLIC PANEL (03/19/2023 4:08 PM [employer] MANAGER) Only the most recent of8 resultswithin the time period is included. Glucose 331(H) 70 - 105 mg/dL 03/19/2023 4:32 PM [facility] Sodium 134(L) 136 - 145 mmol/L 03/19/2023 4:32 PM [facility] Potassium 3.9 3.5 - 5.1 mmol/L 03/19/2023 4:32 PM [facility] Chloride 102 98 - 107 mmol/L 03/19/2023 4:32 PM [facility] CO2 17(L) 22 - 29 mmol/L 03/19/2023 4:32 PM [facility] Calcium 9.3 8.4 - 10.4 mg/dL 03/19/2023 4:32 PM [facility] Anion Gap 15 6 - 16 mmol/L 03/19/2023 4:32 PM [facility] BUN 11 5.3 - 18.7 mg/dL 03/19/2023 4:32 PM [facility] Creatinine 1.09 0.57 - 1.11 mg/dL 03/19/2023 4:32 PM [facility] Alkaline Phosphatase 74 40 - 150 U/L 03/19/2023 4:32 PM [facility] ALT 25 0 - 55 U/L 03/19/2023 4:32 PM [facility] AST 21 5 - 34 U/L 03/19/2023 4:32 PM [facility] Protein Total 9.2(H) 6.4 - 8.3 gm/dL 03/19/2023 4:32 PM [facility] Albumin 4.5 3.4 - 5.0 gm/dL 03/19/2023 4:32 PM [employer] MANAGER [facility] Bilirubin Total 0.9 0.2 - 1.2 mg/dL 03/19/2023 4:32 PM [employer] MANAGER [facility] eGFR by CKD-EPI 65(L) >=90 mL/min/1.7 3 m2 03/19/2023 4:32 PM [employer] MANAGER [facility] Blood BLOOD SPECIMEN / Unknown Venipuncture / Unknown 03/19/2023 4:08 PM [employer] MANAGER 03/19/2023 4:14 PM [employer] MANAGER Altagracia Quesada UNIT AID-PREDATOR CONTROL TRAPPER LAB - CHEM ISTRY ORDERABLES [facility] [address] [place] [address] * SARS-COV-2 (COVID-19) FLU A/B RSV PCR RAPID (03/19/2023 3:51 PM [employer] MANAGER) COVID-19 PCR Not detected Not detected 03/19/19 4:40 PM [employer] MANAGER [facility] Influenza A PCR Not detected Not detected 03/19/2023 4:40 PM [employer]O MANAGER [facility] Influenza B PCR Not detected Not detected 03/19/2023 4:40 PM [employer]O MANAGER [facility] RSV PCR Not detected Not detected 03/19/2023 4:40 PM [employer] TALEO MANAGER [facility] Microbiology SPECIMEN FROM NASOPHARYNGEAL STRUCTURE / Unknown Collection / Unknown 03/19/2023 3:51 PM [employer] MANAGER 03/19/2023 3:57 PM [employer] MANAGER Narrative [facility] - 03/19/2023 4:40 PM [employer] MANAGER This nucleic acid amplification assay has been [...] assay are available upon request. Altagracia Pereserd UNIT AID-PREDATOR CONTROL TRAPPER LAB - MICR OBIOLOGY ORDERABLES [facility] [address] [place] [address] * CARDIAC EKG ORDER (12/03/2022 [...] - 10.5 10 3/uL 12/02/2022 1:54 AM [facility] RBC 4.04 3.80 - 5.20 10 6/uL 12/02/2022 1:54 AM [facility] Hemoglobin 11.2(L) 12.0 - 15.6 g/dL 12/02/2022 1:54 AM [facility] Hematocrit 30.9(L) 35.0 - 45.0 % 12/02/2022 1:54 AM [facility] MCV 76.5(L) 80.7 - 98.3 fL 12/02/2022 1:54 AM [facility] MCH 27.7 26.7 - 34.0 pg 12/02/2022 1:54 AM [facility] MCHC 36.2(H) 30.8 - 35.9 g/dL 12/02/2022 1:54 AM [facility] RDW-SD 40.6 36.0 - 50.0 fL 12/02/2022 1:54 AM [facility] RDW-CV 14.6 11.2 - 14.8 % 12/02/2022 1:54 AM [facility] Platelet Count 224 150 - 400 10 3/uL 12/02/2022 1:54 AM [facility] MPV 11.2 9.4 - 12.9 fL 12/02/2022 1:54 AM [facility] nRBC Absolute 0.00 0 10 3/uL 12/02/2022 1:54 AM [facility] nRBC Auto 0.0 0 /100 WBC 12/02/2022 1:54 AM [facility] Blood BLOOD SPECIMEN / Unknown Lab Venipuncture / Unknown 12/02/2022 12:09 AM CDT 12/02/2022 1:43 AM CDT Juliann Garcia UNIT AID-PREDATOR CONTROL TRAPPER LAB - HEMATOLOGY ORDERABLES [facility] [address] [place] [address], [facility] [phone] * (ABNORMAL) RENAL FUNCTION PANEL (12/02/2022 12:09 AM CDT) Only the most recent of4 resultswithin the time period is included. BUN <5(L) 7 - 26 mg/dL 12/02/2022 2:16 AM [facility] Creatinine 0.63 0.56 - 0.96 mg/dL 12/02/2022 2:16 AM [facility] Sodium 139 136 - 145 mmol/L 12/02/2022 2:16 AM [facility] Potassium 3.4(L) 3.5 - 4.5 mmol/L 12/02/2022 2:16 AM [facility] Chloride 110(H) 98 - 107 mmol/L 12/02/2022 2:16 AM [facility] CO2 23 22 - 29 mmol/L 12/02/2022 2:16 AM [facility] Glucose 99 70 - 115 mg/dL 12/02/2022 2:16 AM [facility] Albumin 3.0(L) 3.4 - 5.0 g/dL 12/02/2022 2:16 [facility] Calcium 8.3(L) 8.4 - 10.2 mg/dL 12/02/2022 2:16 [facility] Phosphorus 2.7(L) 2.9 - 5.1 mg/dL 12/02/2022 2:16 AM CDT [facility] Anion Gap 6 6 - 16 12/02/2022 2:16 AM CDT [facility] BUN/Creatinine Ratio <8 7 - 23 12/02/2022 2:16 AM CDT [facility] Osmolality Calculated <285 275 - 295 mOsm/kg 12/02/2022 2:16 AM CDT [facility] eGFR by CKD-EPI >90 >=90 mL/min/1.7 3 m2 12/02/2022 2:16 AM CDT [facility] Blood BLOOD SPECIMEN / Unknown Lab Venipuncture / Unknown 12/02/2022 12:09 AM CDT 12/02/2022 1:43 AM CDT Miguel Castanon MD LAB - CHEMISTRY ORDERABLES [facility] [address] [place] [id number], [facility] [phone] * XR ABDOMEN KUB PORTABLE (11/29/2022 1:05 PM CDT) Anatomical Region Laterality Modality Abdomen Radiographic Felicia ging 11/29/2022 1:16 PM CDT Impressions 11/29/2022 2:52 PM CDT IMPRESSION: Non-obstructive bowel gas pattern. Report dictated by Alexis Castro MD (radiology transporter). ISarika MD have personally reviewed and interpreted this examination/study. > Interpreting Provider: Sarika Carlos MD on 11/29/2022 2:52 PM Narrative 11/29/2022 2:52 PM CDT PROCEDURE: XR ABDOMEN KUB PORTABLE, DATE/TIME OF EXAM: 11/29/2022 1:06 PM, LOCATION [facility] INDICATION: R11.10: Intractable vomiting ADDITIONAL CLINICAL INFORMATION: Ordering Provider Reason For Exam: persistent n/v, eval for bowel distension COMPARISON: None. FINDINGS: There is no dilatation of small or large bowel. Free intraperitoneal air is not adequately assessed on supine radiographs. No pathological calcifications are seen. The visible osseous structures are intact. Procedure Note Sarika Carlos MD - 11/29/2022 PROCEDURE: XR ABDOMEN KUB PORTABLE, DATE/TIME OF EXAM: 11/29/2022 1:06PM, LOCATION [facility] INDICATION: R11.10: Intractable vomiting ADDITIONAL CLINICAL INFORMATION: Ordering Provider Reason For Exam: persistent n/v, eval for bowel distension COMPARISON: None. FINDINGS: There is no dilatation of small or large bowel. Free intraperitoneal airis not adequately assessed on supine radiographs. No pathological calcifications are seen. The visible osseous structures are intact. IMPRESSION: Non-obstructive bowel gas pattern. Report dictated by Alexis Castro MD (radiology transporter). I, Sarika Carlos MD have personally reviewed [...] (Bezet) 465 ms [facility] Calculated P [place] 66 degrees [facility] Calculated R [place] 41 degrees [facility] Calculated T [place] 34 degrees [facility] Interpretation EKG NORMAL SINUS RHYTHM NORMAL ECG WHEN COMPARED WITH ECG OF 13-SEP-2019 23:13, NO SIGNIFICANT CHANGE WAS FOUND Confirmed by RUDY LUU MD ([id number]) on 12/02/2022 8:27:10 PM [facility] 11/29/2022 12:5 7 PM CDT 12/02/2022 8:27 PM CDT Miguel Castanon MD ECG ORDERABLES [facility] - [place] * (ABNORMAL) BLOOD GASES JOEY + COOX PANEL (11/29/2022 3:58 AM CDT) Only the most recent of3 resultswithin the time period is included. Pathologist [facility] pH Venous 7.36 7.32 - 7.42 pH 11/29/2022 4:02 AM [facility] pO2 Venous 36 35 - 40 mmHg 11/29/2022 4:02 AM [facility] pCO2 Venous 39(L) 40 - 50 mmHg 11/29/2022 4:02 AM [facility] HCO3 Venous 22.0 20 - 30 mmol/L 11/29/2022 4:02 AM [facility] Base Excess Venous -3.2(L) -2.0 - 2.0 mmol/L 11/29/2022 4:02 AM [facility] Oxyhemoglobin Venous 59.2 % 11/09 4:02 AM [facility] Deoxyhemoglobin (HHB) Venous % 39.4 % 11/29/2022 4:02 AM [facility] Methemoglobin <0.8 0.0 - 2.0 % 11/29/2022 4:02 AM [facility] Carboxyhemoglobin 1.3 0.0 - 2.0 % 2022 4:02 AM [facility] O2 Content Venous 10.4 Interpret within clinical context ml/dL 11/29/2022 4:02 AM [facility] Hemoglobin by COOX 12.5 12.0 - 15.6 g/dL 11/29/2022 4:02 AM [facility] O2 Saturation Venous 60(L) >=70 % 11/09 4:02 AM [facility] FI O2 Mixed Venous 21.0 % 2022 4:02 AM [facility] Blood BLOOD SPECIMEN / Unknown Venipuncture / Unknown 11/29/2022 3:58 AM T 11/29/2022 3:59 AM [facility] - 11/29/2022 4:02 AM [facility] Carboxyhemoglobin Normal Concentration: Non-smokers: 0-2%; Smokers: 0-9%; Toxic: >20% Juliann Garcia APRN-PREDATOR CONTROL TRAPPER LAB - BLOOD GASE S ORDERABLES [facility] [address] [place] [address], [facility] [phone] * (ABNORMAL) PHOSPHORUS BLOOD (11/29/2022 12:59 AM CDT) Only the most recent of2 resultswithin the time period is included. Phosphorus 1.1(L) 2.9 - 5.1 mg/dL 11/29/2022 2:15 AM CDT [facility] Blood BLOOD SPECIMEN / Unknown Lab Venipuncture / Unknown 11/29/2022 12:59 AM CDT 11/29/2022 1:30 AM CDT Juliann Austin Jose ESTRELLA-PREDATOR CONTROL TRAPPER LAB - CHEMISTRY ORDERABLES [facility] [address] [place] [address], [facility] [phone] * XR CHEST 1VW PORTABLE (11/28/2022 7:44 PM CDT) Only the most recent of3 resultswithin the time period is included. Anatomical Region Laterality Modality Chest Radiographic Felicia ging 11/28/2022 7:53 PM CDT Narrative 11/29/2022 5:28 AM CDT PROCEDURE: XR CHEST 1VW PORTABLE, DATE/TIME OF EXAM: 11/28/2022 7:44 PM, LOCATION [facility] INDICATION: R00.0: Tachycardia Ordering Provider Reason For Exam: Baseline COMPARISON: None. FINDINGS/IMPRESSION: There is no focal consolidation, pleural effusion, or pneumothorax. The cardiomediastinal silhouette is normal. The visible bony thorax is intact. Report dictated by Keyur Purvis MD (radiology transporter). I, Willie Mendenhall MD have personally reviewed and interpreted this examination/study. > Interpreting Provider: Willie Mendenhall MD on 11/29/2022 5:28 AM Procedure Note Willie Mendenhall MD - 11/29/2022 PROCEDURE: XR CHEST 1VW PORTABLE, DATE/TIME OF EXAM: 11/28/2022 7:44PM, LOCATION [facility] INDICATION: R00.0: Tachycardia Ordering Provider Reason For Exam: Baseline COMPARISON: None. FINDINGS/IMPRESSION: There is no focal consolidation, pleural effusion, or pneumothorax. The cardiomediastinal silhouette is normal. The visible bony thorax is intact. Report dictated by Keyur Purvis MD (radiology transporter). I, Willie Mendenhall MD have personally reviewed and interpreted this examination/study. > Interpreting Provider: Willie Mendenhall MD on 11/29/2022 5:28 AM Soto Paredes MD DIAGNOSTIC IMAGING O RDERABLES * LACTIC ACID BLOOD REFLEX TO REPEAT (11/28/2022 4:27 PM CDT) Only the most recent of3 resultswithin the time period is included. [facility] Lactic Acid-Stat 1.6 <=2.0 mmol/L 11/28/2022 5:09 PM CDT [facility] Blood BLOOD SPECIMEN / Unknown Venipuncture / Unknown 11/28/2022 4:27 PM CDT 11/28/2022 4:47 PM CDT Soto Paredes MD LAB - CHEMISTRY OSCAR NUÑEZ [facility] Organization Address City/State/ZIP Co de Phone Number [facility] [address] [place] [address], [facility] [phone] * (ABNORMAL) URINALYSIS W/MICROSCOPIC REFLEX TO CULTURE (11/28/2022 2:56 PM CDT) Pathologist [facility] Color UA [place](A) Straw, Yellow 11/28/2022 3:41 PM CDT [facility] Clarity UA Slt Cloudy(A) Clear 11/28/2022 3:41 PM CDT [facility] Specific [place] UA 1.027 1.005 - 1.030 11/28/2022 3:41 PM CDT [facility] pH UA 6.0 5.0 - 8.0 pH 11/28/2022 3:41 PM CDT [facility] Protein UA 2+(A) Negative 11/28/2022 3:41 PM CDT [facility] Glucose UA 3+(A) Negative 11/28/2022 3:41 PM T [facility] Ketone UA 2+(A) Negative 11/28/2022 3:41 PM T [facility] Bilirubin UA Negative Negative 11/28/2022 3:41 PM [facility] Blood UA 2+(A) Negative 11/28/2022 3:41 PM T [facility] Nitrite UA Negative Negative 11/28/2022 3:41 PM [facility] Leukocyte Esterase Negative Negative 11/28/2022 3:41 PM [facility] Urobilinogen UA Negative Negative mg/dL 11/28/2022 3:41 PM [facility] RBC UA >100(A) None Seen, 0-2, 3-5 /HPF 11/28/2022 3:41 PM [facility] WBC UA 51-100(A) None Seen, 0-5 /HPF 11/28/2022 3:41 PM [facility] Squamous Epithelial Cells UA 6-10(A) None Seen, 0-2, 3-5 /HPF 11/28/2022 3:41 PM [facility] Mucus UA 1+ /LPF 11/28/2022 3:41 PM [facility] Urine URINE SPECIMEN OBTAINED BY CLEAN CATCH PROCEDURE / Unknown Collection / Unknown 11/28/2022 2:56 PM CDT 11/28/2022 3:01 PM CDT [facility] - 11/28/2022 3:41 PM CDT Lab Status, Culture Reflex Indicated. Soto Paredes MD LAB - URINALYSIS ORD ERABLES [facility] [address] [place] [address], [facility] [phone] * CULTURE URINE (11/28/2022 2:56 PM CDT) Only the most recent of4 resultswithin the time period is included. Culture Urine <10,000 CFU/mL urogenital karolina KATHLEEN 11/30/2022 11:03 AM CDT [facility] Urine URINE SPECIMEN OBTAINED BY CLEAN CATCH PROCEDURE / Unknown Collection / Unknown 11/28/2022 2:56 PM CDT 11/28/2022 3:36 PM CDT Soto Paredes MD LAB - MICROBIOLOGY O RDNILES [facility] MICRO[facility]OLOG[facility] [address] [place] [address], [facility] [phone] * LACTIC ACID REPEAT REFLEX (11/28/2022 1:41 PM CDT) Only the most recent of2 resultswithin the time period is included. Lactic Acid Repeat Reflex Order LACTIC ACID REPEAT HAS BEEN ORDERED 11/28/2022 4:00 PM CDT [facility] Blood BLOOD SPECIMEN / Unknown Venipuncture / Unknown 11/28/2022 1:41 PM CDT 11/28/2022 2:18 PM CDT Soto Paredes MD LAB - CHEMISTRY OSCAR NUÑEZ Performing Organization Address [facility] Co de Phone Number [address] [address], [place] [phone] * LIPASE BLOOD (11/28/2022 1:41 PM CDT) Only the most recent of4 resultswithin the time period is included. Lipase 19 8 - 78 U/L 11/28/2022 2:20 PM CDT [facility] Blood BLOOD SPECIMEN / Unknown Venipuncture / Unknown 11/28/2022 1:41 PM CDT 11/28/2022 1:51 PM CDT Narrative [facility] - 11/28/2022 2:20 PM CDT Lipase results from the [employer]ellon Alinity analyzer may not be comparable with other methodologies. Soto Paredes MD LAB - CHEMISTRY OSCAR NUÑEZ Performing Organization Address City/[facility]/ZIP Co de Phone Number [address] [address], [place] [phone] * ANTI-MULLERIAN HORMONE (11/26/2021 3:09 PM CDT) Anti-Mullerian Hormone 2.79 ng/mL [facility] ACCOUNT BILL Comment: For assays employing antibodies, the possibility exists for interference by heterophile antibodies in the samples.1 1.Sonia Caba Interferences in Immunoassays - still a threat. Clin. Chem. 2000; 46: 4481-9923. This test was developed and its performance characteristics determined by [facility]. It has not been cleared or approved by the Food and Drug Administration. Reference Range: Females 41 - 46y: 0.26 - 5.81 Median 0.58 AMH concentrations of >= 1.06 ng/mL is correlated with a better response to ovarian stimulation, produced more retrievable oocytes and higher odds of live according to Johner et al. Fertility and Sterility. 2010: 94:2941-4595. The current AMH test method correlates with [...] Resulting Agency Comment Lab Testing performed at: [facility] [address] [place] [address] [phone] Jacklyn Galaviz DO LAB - CHEMISTRY OSCAR NUÑEZ [facility] ACCOUNT BILL [address] [place] [address] * TSH+FREE T4+FREE T3 (11/26/2021 3:09 PM CDT) TSH 1.330 0.450 - 4.500 uIU/mL [facility] ACCOUNT BILL T3 Free 3.2 2.0 - 4.4 pg/mL [facility] ACCOUNT BILL T4 Free 1.11 0.82 - 1.77 ng/dL [facility] ACCOUNT BILL Blood BLOOD SPECIMEN / Unknown 11/26/2021 3:09 PM CDT 11/26/2021 Narrative Resulting Agency Comment Lab Testing performed at: [facility] [address] [facility] [phone] Jacklyn Galaviz DO LAB - CHEMISTRY ORDE JOAQUIN [facility] ACCOUNT BILL [address] [place] [address] * PROLACTIN (11/26/2021 3:09 PM CDT) Prolactin 19.0 4.8 - 23.3 ng/mL [facility] ACCOUNT BILL Blood BLOOD SPECIMEN / Unknown 11/26/2021 3:09 PM CDT 11/26/2021 Narrative Resulting Agency Comment Lab Testing performed at: [facility] [address] [facility] [phone] Jacklyn Galaviz DO LAB - CHEMISTRY ORDPaula NUÑEZ Performing Organization Address City/[facility]/ZIP Co de Phone Number [facility] ACCOUNT BILL [address] [place] [address] * HCG BETA BLOOD QUANTITATIVE (11/26/2021 3:09 PM CDT) Only the most recent of2 resultswithin the time period is included. hCG Value <1 mIU/mL [facility] ACCOUNT BILL Comment: Female (Non-) 0 - 5 (Postmenopausal) 0 - 8 . Female () Weeks of Gestation 3 6 - 71 4 10 - 750 5 314 - 3275 6 [phone] - [phone] 7 [phone] 8 72246 -[phone] 9 93943 -323911 10 47613 -148556 12 61024 -181211 14 23987 - 10149 15 98923 - 51186 16 9085 - 43852 17 6875 - 55416 18 9584 - 01350 Mook [employer]CL[employer] methodology Blood BLOOD SPECIMEN / Unknown 11/26/2021 3:09 PM CDT 11/26/2021 Narrative Resulting Agency Comment Lab Testing performed at: [facility] [address] [facility] [phone] Jacklyn Galaviz DO LAB - CHEMISTRY ORDE JOAQUIN [facility] ACCOUNT [place] [place] [address] * LACTIC ACID BLOOD (09/18/2021 6:25 PM CDT) Only the most recent of3 resultswithin the time period is included. Lactic Acid 1.51 <=2 mmol/L 09/18/2021 6:43 PM CDT [facility] Blood BLOOD SPECIMEN / Unknown Venipuncture / Unknown 09/18/2021 6:25 PM CDT 09/18/2021 6:25 PM CDT Doris Anders MD LAB - CHEMISTRY ORDE JOAQUIN Performing Organization Address City/[facility]/ZIP Co de Phone Number [facility] [address] [place] [phone] * CT ABDOMEN AND PELVIS WITH IV [...] Event Date/Time: 09/13/2021 11:16 AM Procedure: intubation (18974). Procedure Section: Sedation: under general anesthesia. Indications [...] minutes. Staff Section Anesthesia Provider: Shelton Goldstein, UNIT A[place]EL[place], Performed the procedure Karen Buckley MD GENERAL ANESTHESIA O RDERABLES * PATHOLOGY TISSUE EXAM (STL) (09/13/2021 11:43 AM CDT) Only the most recent of2 resultswithin the time period is included. Case Report Surgical Pathology Report Case: [id number] Authorizing Provider: Bettye Abbott MD Collected: 09/13/2021 11:43 AM Ordering Location: [facility] Received: 09/13/2021 01:16 PM Pathologist: Vicki Goodman MD Specimen: Gallbladder 09/17/2021 1:58 PM CDT [facility] Final Diagnosis Gallbladder, cholecystectomy: -- Mild chronic inflammation 09/17/2021 1:58 PM CDT [facility] Gross Description Received in formalin [...] filtered yielding no gallstones or gritty material. Security Systems Administrator sections are submitted in cassette A1. CH/lk 09/17/2021 1:58 PM CDT [facility] Microscopic Description Histologic evaluation supports the diagnosis. 09/17/2021 1:58 PM CDT [facility] Disclaimer All histochemical and/or immunohistochemical results are interpreted with controls that demonstrate appropriate staining reactions before reporting results. Note on use of immunocytochemistry reagents: This test was developed and its performance characteristic determined by [facility], Department of Laboratory Medicine. It has [...] interpreted with caution. 09/17/2021 1:58 PM CDT [facility] Embedded Images 09/17/2021 1:58 PM CDT [facility] Pathology/Cytolo gy ENTIRE GALLBLADDER / Unknown 09/13/2021 11:43 AM CDT 09/13/2021 1:16 PM CDT Bettye Abbott MD LAB - PATHOLOGY/CYTO LOGY ORDERABLES [facility] [address] [place] [address] * IRON + TRANSFERRIN PANEL (08/15/2021 5:49 AM CDT) Iron 143 50 - 170 ug/dL 08/15/2021 6:17 AM CDT [facility] Transferrin 306 180 - 382 mg/dL 08/15/2021 6:17 AM CDT [facility] TIBC Calculated 383 240 - 450 ug/dL 08/15/2021 6:17 AM CDT [facility] Iron Saturation % 37 20 - 50 % 08/15/2021 6:17 AM CDT [facility] Blood BLOOD SPECIMEN / Unknown Venipuncture / Unknown 08/15/2021 5:49 AM CDT 08/15/2021 5:53 AM CDT Susan Blackmondonsabra UNIT AID-PREDATOR CONTROL TRAPPER LAB - CERTIFIED JUVENILE PROBATION OFFICER RY ORDERABLES [facility] [address] [place] [address] * (ABNORMAL) URINALYSIS REFLEX TO MICROSCOPIC NO CULTURE (08/14/2021 3:53 AM CDT) Color UA Colorless(A) Straw, Yellow 08/14/2021 4:04 AM CDT [facility] Clarity UA Clear Clear 08/14/2021 4:04 AM CDT [facility] Glucose UA 3+(A) Negative 08/14/2021 4:04 AM CDT [facility] Bilirubin UA Negative Negative 08/14/2021 4:04 AM CDT [facility] Ketone UA 1+(A) Negative 08/14/2021 4:04 AM CDT [facility] Specific [place] UA 1.011 1.005 - 1.030 08/14/2021 4:04 AM CDT [facility] Blood UA Negative Negative 08/14/2021 4:04 AM CDT [facility] pH UA 7.0 5.0 - 8.0 pH 08/14/2021 4:04 AM CDT [facility] Protein UA Negative Negative 08/14/2021 4:04 AM CDT [facility] Urobilinogen UA Negative Negative mg/dL 08/14/2021 4:04 AM CDT [facility] Nitrite UA Negative Negative 08/14/2021 4:04 AM CDT [facility] Leukocyte UA Negative Negative 08/14/2021 4:04 AM CDT [facility] Urine Microscopy Urine microscopy not indicated 08/14/2021 4:04 AM CDT [facility] Urine URINE SPECIMEN OBTAINED BY CLEAN CATCH PROCEDURE / Unknown Collection / Unknown 08/14/2021 3:53 AM CDT 08/14/2021 3:57 AM CDT Narrative [facility] - 08/14/2021 4:04 AM CDT Kareem Scott MD LAB - URINALYSIS ORD ERABLES [facility] [address] [place] [address] * MAMMO BILAT SCREENING W TRISTEN (04/10/2021 9:23 AM [employer]LESO[employer] TALEO MANAGER) Anatomical Region Laterality Modality Breast Bilateral Mammography 04/10/2021 10:5 3 AM [employer]LESOFT TALEO MANAGER Impressions 04/10/2021 10:54 AM [employer]OPLESOFT TALEO MANAGER There is no mammographic evidence of malignancy. OVERALL FINAL ASSESSMENT: BI-RADS CATEGORY 1: NEGATIVE. Annual screening mammography is recommended. *Reading Radiologist: Mary Dougherty on 04/10/2021 at 10:54 AM Narrative 04/10/2021 10:54 AM [employer]OPLESOFT TALEO MANAGER EXAMINATION: BILATERAL DIGITAL SCREENING MAMMOGRAM AND BILATERAL [...] 2:44 PM Narrative 10/06/2020 2:44 PM CDT [place] Hepatobiliary Scan (HIDA) Indication: Abdominal pain. Technique: [...] Procedure Note Jolene Gonzalez MD - 10/06/2020 [place] Hepatobiliary Scan (HIDA) Indication: Abdominal pain. Technique: [...] 10/06/2020 at 2:44 PM Elida Garner MD [place] ORDERABLES * TROPONIN I (05/12/2020 5:19 PM [employer]FT TALEO MANAGER) Only the most recent of4 resultswithin the time period is included. Troponin I <0.010 <0.038 ng/mL 05/12/2020 5:42 PM PEOPLESOFT TALEO MANAGER [facility] Blood BLOOD SPECIMEN / Unknown Venipuncture / Unknown 05/12/2020 5:19 PM [employer]OPLESOFT TALEO MANAGER 05/12/2020 5:21 PM [employer]OPLESOFT TALEO MANAGER Chiquis Stringer MD LAB - CHEMISTRY OR DERABLES [facility] [address] [place] [address] * (ABNORMAL) BLOOD GASES JOEY (ISTAT) (05/12/2020 4:03 PM [employer]OPLESOFT TALEO MANAGER) pH Venous POCT 7.36 7.32 - 7.42 pH 05/12/2020 4:05 PM PEOPLESOFT TALEO MANAGER [facility] pCO2 Venous POCT 43.8 41 - 51 mm hg 05/12/2020 4:05 PM PEOPLESOFT TALEO MANAGER [facility] pO2 Venous POCT 18(L) 30 - 55 mm hg 05/12/2020 4:05 PM [employer]OPLESOFT TALEO MANAGER [facility] HCO3 Venous 24.7 24 - 26 mmol/L 05/12/2020 4:05 PM PEOPLESOFT TALEO MANAGER [facility] RESP [facility]ER[facility] BE Venous -1 -2 - 2 mmol/L 05/12/2020 4:05 PM PEOPLESOFT TALEO MANAGER [facility] O2 Saturation Venous POCT 25(L) >70 % 05/12/2020 4:05 PM PEOPLESOFT TALEO MANAGER [facility] TCO2 Venous Calc POCT 26 24 - 29 mmol/L 05/12/2020 4:05 PM [employer]LESOFT TALEO MANAGER [facility] Site Joey Line 05/12/2020 4:05 PM [employer]OPLESOFT TALEO MANAGER [facility] Fabio's Test NA 05/12/2020 4:05 PM [employer]LESOFT TALEO MANAGER [facility] Treatment Delivery Method Room Air 05/12/2020 4:05 PM [employer]LESOFT TALEO MANAGER [facility] Sample iSTAT JOEY 05/12/2020 4:05 PM [employer]LESOFT TALEO MANAGER [facility] Blood BLOOD SPECIMEN / Unknown 05/12/2020 4:03 PM [employer]LESOFT TALEO MANAGER 05/12/2020 4:05 PM [employer] TALEO MANAGER Chiquis Stringer MD LAB - POINT OF CAR E ORDERABLES Performing Organization Address [facility] de Phone Number [facility] RESP THERAPY [id number] [place] [address] * BLOOD GASES VENOUS POCT (05/12/2020 4:02 PM PEOPLESOFT TALEO MANAGER) Comment Notification Label Only - See Separate Report 05/12/2020 5:30 PM [employer]OPLESOFT TALEO MANAGER [facility] RES[facility]ERAP[facility] Blood BLOOD SPECIMEN / Unknown 05/12/2020 4:02 PM PE[employer]LESOFT TALEO MANAGER 05/12/2020 4:02 PM [employer] TALEO MANAGER Chiquis Stringer MD LAB - BLOOD GASES ORDERABLES Performing Organization Address [facility] de Phone Number [facility] RESP THERAPY [address] [place] [address] * TSH REFLEX FREE T4 (05/12/2020 2:24 PM PEOPLESOFT TALEO MANAGER) Pathologist [facility] TSH 1.255 0.350 - 4.940 uIU/mL 05/12/2020 5:05 PM [employer]OPLESOFT TALEO MANAGER [facility] Blood BLOOD SPECIMEN / Unknown Venipuncture / Unknown 05/12/2020 2:24 PM PEOPLESOFT TALEO MANAGER 05/12/2020 2:29 PM [employer]LESOFT TALEO MANAGER Chiquis Stringer MD LAB - CHEMISTRY OR DERABLES Performing Organization Address [facility] de Phone Number [facility] [id number] [place] [address] * HCG BLOOD QUALITATIVE (05/12/2020 2:24 PM PEOPLESOFT TALEO MANAGER) HCG Qual Serum Negative Negative 05/12/2020 2:43 PM PEOPLESOFT TALEO MANAGER [facility] Blood BLOOD SPECIMEN / Unknown Venipuncture / Unknown 05/12/2020 2:24 PM PE[employer]LESOFT TALEO MANAGER 05/12/2020 2:29 PM [employer] TALEO MANAGER Chikis Blackmon PA-C LAB - CHEMISTRY ORD ERABLES [facility] [address] [place] [address] * PATHOLOGY/CYTOLOGY REPORT ORDER (12/13/2019 10:58 PM [...] Event Date/Time: 12/09/2019 10:58 AM Procedure: intubation (69586). Procedure Section: Sedation: under general anesthesia. Indications [...] Rh O POS 12/09/2019 11:19 AM CDT [facility] Blood Bank BLOOD SPECIMEN / Unknown Venipuncture / Unknown 12/09/2019 10:46 AM CDT 12/09/2019 10:49 AM CDT Jacklyn Escalante Guillaume JOHANSEN LAB - BLOOD BANK ORD NILES Performing Organization Address [facility] Co de Phone Number [facility] B[facility]OD BANK [address] [place], [place] [address] [phone] * TYPE + SCREEN PANEL (12/09/2019 10:21 AM CDT) ABO Rh O POS 12/09/2019 11:19 AM CDT [facility] Comment:No history; collect retype. Antibody Screen NEG 0 11:19 AM CDT [facility] Blood Bank BLOOD SPECIMEN / Unknown Venipuncture / Unknown 12/09/2019 10:21 AM CDT 12/09/2019 10:44 AM CDT Jacklyn Escalante Guillaume LAB - BLOOD BANK ORD STOCKBRIDGEBLES Performing Organization Address City/[facility] Co de Phone Number [facility] [address] [place], [place] [address] [phone] * US OB TRANSVAGINAL DOPPLER (12/09/2019 8:50 AM CDT) Anatomical Region Laterality Modality Pelvis Ultrasound 12/09/2019 8:57 AM CDT Impressions 12/09/2019 9:21 AM CDT Right adnexal ectopic as described above *Reading Radiologist: Rod Medrano on 12/09/2019 at 9:21 AM Narrative 12/09/2019 9:21 AM CDT EXAM: US OB TRANSVAGINAL DOPPLER*[id number] INDICATION: Encounter for test, result positive, pelvic [...] MD - 12/09/2019 EXAM: US OB TRANSVAGINAL DOPPLER*[id number] INDICATION: Encounter for test, result positive, pelvic [...] [facility] ACCOUNT BILL Comment: The Thin [employer] Supervisor Of Engines was unable to read this specimen. Therefore a manual review was performed. Ancillary determined the test is not needed. Human papillomavirus Aptima Negative Negative [facility] ACCOUNT BILL Comment: This nucleic acid amplification test detects fourteen high-risk HPV types (16,18,31,33,35,39,45,51,52,56,58,59,66,68) without differentiation. Chlamydia trachomatis HBUMI Negative Negative [facility] ACCOUNT BILL GC BHUMI Negative Negative [facility] ACCOUNT BILL Trichomonas vaginalis by BHUMI Negative Negative [facility] ACCOUNT BILL PART OF UTERINE CERVIX / Unknown 12/08/2019 4:03 PM CDT 12/08/2019 Narrative [facility] ACCOUNT BILL - 12/10/2019 1:08 PM CDT Source.............Cervix;Endocervix No. of containers..01 ThinPrep Vial Resulting Agency Comment Lab Testing performed at: [address] [phone] Jacklyn Galaviz DO LAB - PATHOLOGY/CYTO LOGY ORDERABLES [facility] ACCOUNT BILL [address] [place] [address] * DRUG ABUSE URINE PANEL 7 (12/08/2019 [...] [place] [address] [place] [phone] Jacklyn Galaviz DO LAB - URINE CHEMISTR Y ORDERABLES [facility] INSURANCE BILL [address] [place] [address] * (ABNORMAL) HCG URINE QUALITATIVE - POINT OF CARE (AMB) STL (12/08/2019) HCG Qual Urine Positive( A) Negative HCG Urine QC NEG n NEGATIVE - POSITIVE HCG Urine QC POS p NEGATIVE - POSITIVE Expiration Date 12/07/2020 Lot # [id number] Urine URINE / Unknown 12/08/2019 Jacklyn Galaviz DO LAB - POINT OF CARE ORDERABLES * D-DIMER (09/14/2019 3:59 AM CDT) D-Dimer 0.38 0.27 - 0.50 ug/mL FEU 09/14/2019 4:18 AM CDT [facility] Blood BLOOD SPECIMEN / Unknown Venipuncture / Unknown 09/14/2019 3:59 AM CDT 09/14/2019 4:05 AM CDT Narrative [facility] - 09/14/2019 4:18 AM CDT In the absence of clinical symptoms, a value less than or equal to 0.5 mcg/mL FEU significantly decreases the probability of PE/DVT (negative predictive value >95%). 1 mcg/ml FEU = 1 Fibrinogen Equivalent Unit (approximates 0.5 mcg/mL of D- dimer). Brain Simon MD LAB - COAGULATION OR DERABLES [facility] LABORATORY [address] [place] [address] * HCG URINE QUALITATIVE - POCT (IP) INTERFACED (09/14/2019 2:00 AM CDT) HCG Qual Urine Negative Negative 09/14/2019 2:07 AM CDT [facility] Urine URINE / Unknown 09/14/2019 2 :00 AM CDT 09/14/2019 2:07 AM CDT Provider Unknown LAB - POINT OF CARE ORDERABLES Performing Organization Address City/[facility]/ZIP Co de Phone Number [facility] [address] [place] [id number] * HCG URINE QUAL POCT NOTIFICATION (09/14/2019 1:15 AM CDT) Comment Notification Label Only - See Separate Report 09/14/2019 1:15 AM CDT [facility] Urine URINE / Unknown 0 12:14 AM CDT Brian Simon MD LAB - URINALYSIS ORD ERABLES Performing Organization Address City/[facility] Co de Phone Number [facility] [address] [place] [id number] * B-TYPE NATRIURETIC PEPTIDE (09/13/2019 11:22 PM CDT) BNP <10 <=100 pg/mL 09/13/2019 11:53 PM CDT [facility] Blood BLOOD SPECIMEN / Unknown Venipuncture / Unknown 09/13/2019 11:22 PM CDT 09/13/2019 11:26 PM CDT Narrative [facility] - 09/13/2019 11:53 PM CDT [...] Simon MD LAB - CHEMISTRY [facility] Organization Address City/State/ZIP Co de Phone Number [facility] [address] [place] [address] * CT SOFT TISSUE NECK [...] OF CARE ORDERABLES [facility] [address] [phone] Care Teams Auto Glass Installer Relationship Specialty Start Date End Date Macy Contreras MD [facility] [place] [address] PCP - General Internal Medicine 09/12/21
--- OUTSIDE RECORDS SUMMARY | 2024-04-30 14:12 | XMS_ITS | Clinical Summary ---
Author Organization [facility] Address [address] [place] [address] Phone Care Team Providers Care Printing Machine Operator Name Role Phone Kobi Martinez MD, Rory [...] [facility] Care Teams Printing Machine Operator Relationship Specialty Start Date End Date Rory Peace Jr., MD [address] [place] [address] PCP - General Internal Medicine 06/01/20
--- OUTSIDE RECORDS SUMMARY | 2024-04-30 14:13 | XMS_ITS | Referral Summary ---
Author Organization [facility] Address [address] [place] [address] Care Team Providers Care Physical Fitness Teacher Name Role Phone Macy Contrreas MD Primary Care Provider [phone] Source Comments [facility],non-owned Affiliates and Associated Physician Practices is amultiple site organization consisting of ambulatory clinics and hospital sitesin [place], [place], [place] and [place]. This disclosure is being madepursuant to the Care Everywhere program and may not contain all information available regarding this patient. Last updated 17.[facility] Allergies Active Allergy Reactions Criticality Noted Date [...] Comments Blood Pressure 124/81 03/20/2023 7:31 AM IRONING PLEATER Pulse 97 03/20/2023 7:31 AM IRONING PLEATER Temperature 36.3 C (97.3 F) 03/20/2023 7:31 AM IRONING PLEATER Respiratory Rate 18 03/20/2023 7:31 AM IRONING PLEATER Oxygen Saturation 99% 03/20/2023 7:31 AM IRONING PLEATER Inhaled Oxygen Concentration - - Weight 83.9 kg (185 lb) 03/20/2023 1:08 AM IRONING PLEATER Height 160 cm (5' 3 ) 03/20/2023 1:08 AM IRONING PLEATER Body Mass Index 32.77 03/20/2023 1:08 AM IRONING PLEATER Functional Status Functional Status Response Date of [...] Comments HEMOGLOBIN A1C STAT 03/20/2023 10:46 AM IRONING PLEATER 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) BASIC METABOLIC PANEL (CALCIUM TOTAL) STAT 03/20/2023 4:21 AM IRONING PLEATER Nausea and vomiting, unspecified vomiting type MAMMO BILAT SCREENING W TRISTEN Routine 04/10/2021 9:23 AM IRONING PLEATER Breast screening PAP IG LB+CT+NG+TV+HPV APTIMA RFLX 16,18/45 Routine 12/08/2019 4:03 PM CDT Positive test (HCC) from Last 3 Months or Most Recently Relevant to Health Maintenance Results * (ABNORMAL) HEMOGLOBIN A1C (03/20/2023 10:46 AM IRONING PLEATER) Hemoglobin A1c 7.3(H) <5.7 % 03/20/2023 10:59 AM IRONING PLEATER [facility] Estimated Average Glucose 163 mg/dL 03/20/2023 10:59 AM IRONING PLEATER [facility] Blood BLOOD SPECIMEN / Unknown Venipuncture / Unknown 03/20/2023 10:46 AM IRONING PLEATER 03/20/2023 10:49 AM IRONING PLEATER Narrative [facility] - 03/20/2023 10:59 AM IRONING PLEATER HbA1c Interpretation: Normal: < 5.7% Pre-diabetes: 5.7-6.4% [...] Kirby Fernández MD LAB - CHEMISTRY ORDERABLES [facility] [address] [place] [address] * (ABNORMAL) BASIC METABOLIC PANEL (CALCIUM TOTAL) (03/20/2023 4:21 AM IRONING PLEATER) Glucose 208(H) 70 - 105 mg/dL 03/20/2023 4:57 AM [facility] Sodium 135(L) 136 - 145 mmol/L 03/20/2023 4:57 AM [facility] Potassium 3.5 3.5 - 5.1 mmol/L 03/20/2023 4:57 AM [facility] Chloride 106 98 - 107 mmol/L 03/20/2023 4:57 AM [facility] CO2 16(L) 22 - 29 mmol/L 03/20/2023 4:57 AM [facility] Calcium 8.3(L) 8.4 - 10.4 mg/dL 03/20/2023 4:57 AM [facility] Anion Gap 13 6 - 16 mmol/L 03/20/2023 4:57 AM [facility] BUN 8 5.3 - 18.7 mg/dL 03/20/2023 4:57 AM [facility] Creatinine 0.77 0.57 - 1.11 mg/dL 03/20/2023 4:57 AM [facility] eGFR by CKD-EPI >90 >=90 mL/min/1.7 3 m2 03/20/2023 4:57 AM [facility] Blood BLOOD SPECIMEN / Unknown Venipuncture / Unknown 03/20/2023 4:21 AM IRONING PLEATER 03/20/2023 4:27 AM IRONING PLEATER Rocio Rai MD [facility] Organization Address City/State/[facility] Co de Phone Number [facility] [address] [place] [address] * MAMMO BILAT SCREENING W TRISTEN (04/10/2021 9:23 AM IRONING PLEATER) Anatomical Region Laterality Modality Breast Bilateral Mammography 04/10/2021 10:5 3 AM IRONING PLEATER Impressions 04/10/2021 10:54 AM IRONING PLEATER There is no mammographic evidence of malignancy. OVERALL FINAL ASSESSMENT: BI-RADS CATEGORY 1: NEGATIVE. Annual screening mammography is recommended. *Reading Radiologist: Mary Dougherty on 04/10/2021 at 10:54 AM Narrative 04/10/2021 10:54 AM IRONING PLEATER EXAMINATION: BILATERAL DIGITAL SCREENING MAMMOGRAM AND BILATERAL [...] [facility] ACCOUNT BILL Comment: The Thin Prep(R) [employer] [facility] C[facility] Mounter was unable to read this specimen. Therefore [...] Lab Testing performed at: [facility] Vitaliy Yury Stitzer Landy STRINGER [id number] Jacklyn Galaviz DO LAB - PATHOLOGY/CYTO LOGY ORDERABLES [facility] ACCOUNT BILL [address] [place] [address] from Last 3 Months or Most Recently Relevant to Health Maintenance Advance Directives * Full Code (Latest Code Status on File) Date Activated Date Inactivated Comments 03/19/2023 9:26 PM 03/20/2023 5:34 PM * Full Code Date Activated Date Inactivated Comments 11/28/2022 9:40 PM 12/02/2022 12:02 PM * Full Code Date Activated Date Inactivated Comments 08/14/2021 2:27 PM 08/16/2021 6:16 PM Care Teams Physical Fitness Teacher Relationship Specialty Start Date End Date Macy Contreras MD [address] [place] [address] PCP - General Internal Medicine 09/12/21
--- OUTSIDE RECORDS SUMMARY | 2024-04-30 14:13 | XMS_ITS | Clinical Summary ---
Author Organization [id number] Address [address] [place] [phone] Care Team Providers Care Americanization Teacher Name Role Phone Kobi Martinez MD, Rory [...] on file Legal Sex Female 12:42 AM UTILITY TECH Gender Identity Not on file Sexual Orientation Not on file Obstetrics History Last Filed Vital Signs Vital Sign Reading Time Taken Comments Blood Pressure 114/79 03/17/2023 6:55 PM UTILITY TECH Pulse 106 03/17/2023 6:55 PM UTILITY TECH Temperature 36.1 C (97 F) 03/17/2023 8:25 AM UTILITY TECH Respiratory Rate 16 03/17/2023 6:55 PM UTILITY TECH Oxygen Saturation 100% 03/17/2023 6:55 PM UTILITY TECH Inhaled Oxygen Concentration - - Weight 83.9 kg (185 lb) 03/17/2023 8:25 AM UTILITY TECH Height 160 cm (5' 3 ) 03/17/2023 8:25 AM UTILITY TECH Body Mass Index 32.77 03/17/2023 8:25 AM UTILITY TECH Plan of Treatment Health Maintenance Due Date [...] complete this topic Insurance ANTHEM ACCESS CHOICE [employer] OOS ANTHEM ACCESS CHOICE [facility] ACCESS CHOICE Care Teams Americanization Teacher Relationship Specialty Start Date End Date Rory Peace Jr., MD [address] [place] [address] PCP - General Internal Medicine 11/10/19
--- OUTSIDE RECORDS SUMMARY | 2024-04-30 14:13 | XMS_ITS | Referral Summary ---
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 Gender Identity Not on file Sexual Orientation Not on file Last Filed Vital Signs Vital Sign Reading Time Taken Comments Blood Pressure 114/79 03/17/2023 6:55 PM MASTER WELDER Pulse 106 03/17/2023 6:55 PM MASTER WELDER Temperature 36.1 C (97 F) 03/17/2023 8:25 AM MASTER WELDER Respiratory Rate 16 03/17/2023 6:55 PM MASTER WELDER Oxygen Saturation 100% 03/17/2023 6:55 PM MASTER WELDER Inhaled Oxygen Concentration - - Weight 83.9 kg (185 lb) 03/17/2023 8:25 AM MASTER WELDER Height 160 cm (5' 3 ) 03/17/2023 8:25 AM MASTER WELDER Body Mass Index 32.77 03/17/2023 8:25 AM MASTER WELDER Plan of Treatment Not on file Insurance CT [address] [place] [phone] [place] [phone] [employer] [facility] Care Teams Textile Scrap Salvager Relationship Specialty Start Date End Date Rory Peace Jr., MD [address] [place] [address] PCP - General Internal Medicine 11/10/19
--- OUTSIDE RECORDS SUMMARY | 2024-04-30 14:13 | XMS_ITS | Continuity of Care Document ---
Author Organization [employer] Address [address] [place] [address] Phone Care Team Providers Care [employer] Worker Name Role Phone Macy Steven MD Unavailable [...] QN (URINE) CREATININE, (U-R) ROUTINE VENIPUNCTURE OFFICE EHVHR-UCY-UARHDJQV BODY MASS INDEX DOCD SYST BP LT 130 MM HG DIAST BP < 80 MM HG FALL RISK ASSESSMENT DOC'D PRES/ABSN URINE INCON ASSESS Pt inelig neg scrn depres IMMUN ADMIN (INC PERCUTANEOUS) SINGLE, F IRST INJ INFLUENZA VIRUS VACCINE 0.5mL DOSAGE; AL ESERVATIVE FREE, IM USE OFFICE GNYVC-NQN-[id number] BODY MASS INDEX DOCD SYST BP LT 130 MM HG DIAST BP < 80 MM HG FALL RISK ASSESSMENT DOC'D PRES/ABSN URINE INCON ASSESS Pt inelig neg scrn depres IMMUN ADMIN (INC PERCUTANEOUS) SINGLE, F IRST INJ Pneumococcal Conjugate Vaccine (PCV20) J GENERAL HEALTH PANEL HEMOGLOBIN A1C HGA1C, GLYCO LIPID PANEL MICROALBUMIN, QN (URINE) CREATININE, (U-R) ROUTINE VENIPUNCTURE OFFICE DSMCO-NRY-UFOHRIAZ BODY MASS INDEX DOCD SYST BP LT [...] ASSESS Pt inelig neg scrn depres OFFICE SRHHK-FQB-OTUCWWJM BODY MASS INDEX DOCD SYST BP LT 130 MM HG DIAST BP 80-89 MM HG HEMOGLOBIN A1C HGA1C, GLYCO ROUTINE VENIPUNCTURE FALL RISK ASSESSMENT DOC'D PRES/ABSN URINE INCON ASSESS OFFICE TRNUA-AUY-KWOERMIR BODY MASS INDEX DOCD SYST BP LT [...] STICK-COLLECTION OF CAPIL CAREN BLOOD SPECIMEN OFFICE EZPWZ-WYA-TDEZCPFK BODY MASS INDEX DOCD SYST BP LT 130 MM HG DIAST BP < 80 MM HG Kept Appointment No Charge Encounter Aug HEMOGLOBIN A1C HGA1C, GLYCO ROUTINE VENIPUNCTURE PRES/ABSN URINE INCON ASSESS Pt inelig neg scrn depres OFFICE ZJQGK-ZEX-HTDGHZQP BODY MASS INDEX DOCD SYST BP LT 130 MM HG DIAST BP 80-89 MM HG Kept Appointment No Charge Encounter Apr FALL RISK ASSESSMENT DOC'D PRES/ABSN URINE INCON ASSESS Pt inelig neg scrn depres OFFICE SUVHF-MCX-TJJGJYHH BODY MASS INDEX DOCD SYST BP LT [...] STICK-COLLECTION OF CAPIL CAREN BLOOD SPECIMEN OFFICE IJSET-TBJ-GQOUEMRG BODY MASS INDEX DOCD SYST BP LT 130 MM HG DIAST BP 80-89 MM HG FALL RISK ASSESSMENT DOC'D PRES/ABSN URINE INCON ASSESS Pt inelig neg scrn depres OFFICE FXVCR-NYR-CEIPZTIY BODY MASS INDEX DOCD SYST BP LT 130 MM HG DIAST BP 80-89 MM HG GLUCOSE MONITORING, FINGERSTICK-OFFICE L AB FINGER OR HEEL STICK-COLLECTION OF CAPIL CAREN BLOOD SPECIMEN Kept Appointment No Charge Encounter Jan FALL RISK ASSESSMENT DOC'D PRES/ABSN URINE INCON ASSESS Pt inelig neg scrn depres OFFICE QXJWP-TEV-TECUOAWL BODY MASS INDEX DOCD SYST BP GE [...] STICK-COLLECTION OF CAPIL CAREN BLOOD SPECIMEN OFFICE UIGTQ-DXX-ZJHZQISI BODY MASS INDEX DOCD SYST BP LT 130 MM HG DIAST BP 80-89 MM HG HEMOGLOBIN A1C HGA1C, GLYCO ROUTINE VENIPUNCTURE OFFICE XBHAN-XUP-FHERTFDC BODY MASS INDEX DOCD SYST BP LT 130 MM HG DIAST BP 80-89 MM HG FALL RISK ASSESSMENT DOC'D PRES/ABSN URINE INCON ASSESS HEMOGLOBIN A1C HGA1C, GLYCO ROUTINE VENIPUNCTURE OFFICE SYDSQ-VBU-UFCWRCRK BODY MASS INDEX DOCD SYST BP LT [...] 2021 VITAMIN D, 25-HYDROXY ROUTINE VENIPUNCTURE OFFICE AFLDP-VLR-UUAVKQAF BODY MASS INDEX DOCD SYST BP LT 130 MM HG DIAST BP 80-89 MM HG IMMUN ADMIN (INC PERCUTANEOUS) SINGLE, F IRST INJ Flu Vac, quad (RIV4), Preservative And A ntibiotic Free IM OFFICE NVALM-QBX-ALTZHITH BODY MASS INDEX DOCD SYST BP LT 130 MM HG DIAST BP >= 90 MM HG UPPER GI ENDOSCOPY BIOPSY BODY MASS INDEX DOCD SYST BP GE 130 - 139MM HG DIAST BP >= 90 MM HG OFFICE WMSLD-AVF-JROZNVCR FORM CHARGE Pt inelig neg scrn depres FALL RISK ASSESSMENT DOC'D GLUCOSE MONITORING, FINGERSTICK-OFFICE L AB FINGER OR HEEL STICK-COLLECTION OF CAPIL CAREN BLOOD SPECIMEN OFFICE DADSY-XOA-PQZQLXMU BODY MASS INDEX DOCD SYST BP LT 130 MM HG DIAST BP < 80 MM HG FALL RISK ASSESSMENT DOC'D PRES/ABSN URINE INCON ASSESS Pt inelig neg scrn depres OFFICE TWNAG-VIK-DNHYVBWG BODY MASS INDEX DOCD SYST BP LT [...] STICK-COLLECTION OF CAPIL CAREN BLOOD SPECIMEN OFFICE KZIWJ-YVC-OOUNDEMN BODY MASS INDEX DOCD SYST BP GE [...] STICK-COLLECTION OF CAPIL CAREN BLOOD SPECIMEN OFFICE QHUWG-AJY-RTKGADLE BODY MASS INDEX DOCD SYST BP LT 130 MM HG DIAST BP 80-89 MM HG FALL PLAN OF CARE DOC'D URINE INCON PLAN DOC'D PRES/ABSN URINE INCON ASSESS Pt inelig neg scrn depres GLUCOSE MONITORING, FINGERSTICK-OFFICE L AB FINGER OR HEEL STICK-COLLECTION OF CAPIL CAREN BLOOD SPECIMEN OFFICE VKPZI-QLU-EWVQISQZ BODY MASS INDEX DOCD SYST BP LT 130 MM HG DIAST BP 80-89 MM HG FALL PLAN OF CARE DOC'D URINE INCON PLAN DOC'D PRES/ABSN URINE INCON ASSESS Pt inelig neg scrn depres IMMUN ADMIN (INC PERCUTANEOUS) JOSE JUAN, F IRST INJ OFFICE JBDBJ-NZT-UBVSNTFI BODY MASS INDEX DOCD SYST BP LT [...] Diagnoses Date Provider Providers Copied on Encounter [facility], [address], [place], [place], [address] , tel: [phone] [facility] No Information 5 Nabil Cavazos. [address], [place], [address] , [place]. tel: [phone] OFFICE ATYXN-DSK-GRR ANDED [facility], [address], [place], [place], [address] , [place] tel: [phone] [facility] Routine (chief complaint)C hronic Conditions (chief complaint) Controlled type 2 diabetes mellitus with other circulatory complication, without long-term current use of insulinMixed hyperlipidemiaTy pe 2 diabetes mellitus without complications 4 Billops Mey. [address], [place], [address] , [place]. tel: [phone] Referring Provider: Macy Sena, [address] [place], [address] . tel:[phone] [facility], [address], [place], [place], [address] , tel: [phone] [facility] Severe obesity Sep- 4 Nabil Cavazos. [address], [place], [address] , [place]. tel: [phone] OFFICE OUXWO-SFK-QVF [facility], [address], [place], [place], [address] , tel: [phone] [facility] follow-up (chief complaint) Type 2 diabetes mellitus with both eyes affected by moderate nonproliferative retinopathy without macular edema, without long-term current use of insulinLong term (current) use of insulinMixed hyperlipidemiaDi abetic gastroparesisSev ere obesity Nov-0 4 Nabil Cavazos. [address] [employer] [place], [address] , [place]. tel: [phone] Referring Provider: Macy Sena [address] [employer] [facility], [place], [address] . tel:[phone] [facility], [address], [place], [place], [address] , tel: [phone] [facility] No Information 4 Nabil Cavazos. [address] [employer] [place], [address] , [place]. tel: [phone] OFFICE IVWTB-HFQ-HUV [facility], [address], [place], [place], [address] , [place] tel: [phone] [facility] follow-up (chief complaint) Mixed hyperlipidemiaTy pe 2 diabetes mellitus with both eyes affected by moderate nonproliferative retinopathy without macular edema, without long-term current use of insulinHealth care maintenanceLong term (current) use of insulin 4 Nabil Cavazos. [address] [place], [address] , [place]. tel: [phone] Referring Provider: Macy Sena [address] [employer] [place], [address] . tel:[phone] [facility], [address], [place], [place], [address] , [place] tel: [phone] [facility] No Information 4 Nabil Cavazos. [address] [place], [address] , [place]. tel: [phone] Transitional Care- First 7 Days Of Discharge [facility], [address], [place], [place], [address] , [place] tel: [phone] [facility] Follow-Up (chief complaint) Controlled type 2 diabetes mellitus with other circulatory complication, without long-term current use of insulinDiabetic gastroparesisMix ed hyperlipidemia 4 Nabil Cavazos. [address], [place], [address] , [place]. tel: [phone] Referring Provider: Macy Sena [facility] [facility], [place], [address] . tel:[phone] OFFICE XKZMN-GLT-TDD ANDED [facility], [address], [place], [place], [address] , [place] tel: [phone] [facility] follow-up (chief complaint) Type 2 diabetes mellitus with both eyes affected by moderate nonproliferative retinopathy without macular edema, without long-term current use of insulinDiabetic gastroparesisTob acco dependence 3 Nabil Cavazos. [address], [place], [address] , [place]. tel: [phone] Referring Provider: [facility], [place], [address] . tel:[phone] OFFICE MJJBH-JLP-JBT ANDED [facility], [address], [place], [place], [address] , [place] tel: [phone] [facility] follow-up (chief complaint) Type 2 diabetes mellitus with both eyes affected by moderate nonproliferative retinopathy without macular edema, without long-term current use of insulinMixed hyperlipidemiaTo bacco dependence 3 Nabil Cavazos. [address], [place], [address] , [place]. tel: [phone] Referring Provider: Macy Sena [address] [facility], [place], [address] . tel:[phone] Transitional Care- First 7 Days Of Discharge [facility], [address], [place], [place], [address] , [place] tel: [phone] [facility] Follow-Up (chief complaint) Diabetic gastroparesisMix ed hyperlipidemiaTo bacco dependenceHypona tremiaDiabetic ketoacidosis without coma associated with type 2 diabetes mellitusLong term (current) use of insulinType 2 diabetes mellitus with both eyes affected by moderate nonproliferative retinopathy without macular edema, without long-term current use of insulin Nov- 3 Nabil Cavazos. [address], [address] , [place]. tel: [phone] Referring Provider: Macy Sena, [address], [place], [address] . tel:[phone] OFFICE LGSRB-WAZ-YGG ANDED [facility], [address], [place], [place], [address] , [place] tel: [phone] [facility] Follow Up of Patient encounter (chief complaint) Diabetic gastroparesisTyp e 2 diabetes mellitus with hyperglycemia, without long-term current use of insulin 3 Nabil Cavazos. [address], [address] , [place]. tel: [phone] Referring Provider: Macy Sena [address], [place], [address] . tel:[phone] [employer], [address], [place], [place], [address] , [place] tel: [phone] [facility] No Information 3 Nabil Cavazos. [address], [address] , [place]. tel: [phone] Referring Provider: Macy Sena [address], [place], [address] . tel:[phone] [employer], [address], [place], [place], [address] , [place] tel: [phone] [facility] Type 2 diabetes mellitus with both eyes affected by moderate nonproliferative retinopathy without macular edema, without long-term current use of insulin Jun- 3 Nabil Cavazos. [address], [address] , [place]. tel: [phone] Referring Provider: Macy Sena, [address] [place], [address] . tel:[phone] OFFICE GIKJF-QAE-TVE ANDED [employer] [facility], [address], [place], [place], [address] , tel: [phone] [facility] Patient encounter (chief complaint) History of diabetic gastroparesisGas troparesis due to DMType 2 diabetes mellitus with other specified complication, unspecified whether shelter insulin use 3 Nabil Cavazos. [address], [place], [address] , [place]. tel: [phone] Referring Provider: Mcay Sena, [address] [facility], [place], [address] . tel:[phone] [employer], [address], [place], [place], [address] , [place] tel: [phone] [facility] No Information 3 Nabil Cavazos. [address], [place], [address] , [place]. tel: [phone] Referring Provider: Macy Sena, [address] [facility], [place], [address] . tel:[phone] OFFICE TAJAW-XKS-UIR ANDED [employer], [address], [place], [place], [address] , [place] tel: [phone] [facility] Follow Up of Patient encounter (chief complaint) Gastroparesis due to DMType 2 diabetes mellitus with hyperglycemia, without long-term current use of insulin 3 Nabil Cavazos. [address], [place], [address] , [place]. tel: [phone] Referring Provider: Macy Sena [address] [place], [address] . tel:[phone] OFFICE VTUOG-IIP-KDS ANDED [employer], [address], [place], [place], [address] , [place] tel: [phone] [facility] follow up (chief complaint) Gastroparesis due to DMType 2 diabetes mellitus with hyperglycemia, without long-term current use of insulin 2 Nabil Cavazos. [address], [place], [address] , [place]. tel: [phone] Referring Provider: Macy Nabil Sena, [address] [facility], [place], [address] . tel:[phone] OFFICE RQWCN-ACC-RDI [facility], [address], [place], [place], [address] , [place] tel: [phone] [facility] Vomiting (chief complaint)P atient encounter (chief complaint) Gastroparesis due to DMType 2 diabetes mellitus with hyperglycemia, without long-term current use of insulinAcute viral syndrome 2 Nabil Cavazos. [address], [place], [address] , [place]. tel: [phone] Referring Provider: Macy Sena, [address] [place] [address], [address] . tel:[phone] [facility], [address], [place], [place], [address] , [place] tel: [phone] [facility] No Information 2 Nabil Cavazos. [address], [place], [address] , [place]. tel: [phone] OFFICE EZHHR-ZFA-LAQ [facility], [address], [place], [place], [address] , [place] tel: [phone] [facility] Patient encounter (chief complaint) Gastroparesis due to DMType 2 diabetes mellitus with hyperglycemia, without long-term current use of insulinS/P cholecystectomyH ealth care maintenance 2 Nabil Cavazos. [address], [place], [address] , [place]. tel: [phone] Referring Provider: Macy Sena [address] [place] [address], [address] . 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 [address], [place], [address] , [place]. tel: [phone] Referring Provider: Seth Potter, [address] [place], [address] . tel:[phone] OFFICE MHVOK-HDA-KXW [facility] [employer] [facility], [address], [place], [place], [address] , [place] tel: [phone] [facility] Abdominal pain (chief complaint)N ausea/vomit ing (chief complaint) Nausea and vomiting, unspecified vomiting typeUpper abdominal pain 2 Edward Hager. [address] [place] [address], [address] , [place]. tel: [phone] Referring Provider: Macy Sena, [address] [facility], [place], [address] . tel:[phone] OFFICE WTZFN-XJZ-CMA [facility] [employer] [facility], [address], [place], [place], [address] , [place] tel: [phone] [facility] Diabetes (follow up) (chief complaint)C hronic Conditions (chief complaint) Type 2 diabetes mellitus without complication, without long-term current use of insulin Jun- 2 Castillo [address], [place], [address] , [place]. tel: [phone] Referring Provider: Macy Sena [address] [place], [address] . tel:[phone] OFFICE PBEYD-UZQ-TCL [facility], [address], [place], [place], [address] , [place] tel: [phone] [facility] Office visit (chief complaint)C hronic Conditions (chief complaint) Type 2 diabetes mellitus without complication, without long-term current use of insulinInfluenza vaccine administeredRout ine physical examination 2 Jonathan Sultana. [address], [place], [address] , [place]. tel: [phone] Referring Provider: Barbaralucila Nabil Sena, [address] [facility], [place], [address] . tel:[phone] OFFICE HNZNZ-KSM-QNZ [facility], [address], [place], [place], [address] , [place] tel: [phone] [facility] N/V (chief complaint) No Information 1 Edward Hager. [address] [place], [place], [address] , . tel: [phone] Referring Provider: Rory Irwin, [facility] [place], [address] . tel:[phone] [facility], [address], [place], [place], [address] , [place] tel: [phone] [facility] No Information 1 Ramonesarah Scotaleksandar. [address] [place], [place], [address] , . tel: [phone] Referring Provider: Rory Irwin, [facility] [place], [address] . tel:[phone] OFFICE PCEUF-NQO-IGR [facility], [address], [place], [place], [address] , [place] tel: [phone] [facility] Nausea and vomiting (chief complaint) No Information 1 Edward Hager. [address] [place], [place], [address] , [place]. tel: [phone] Referring Provider: Rory Irwin, [facility] [place], [address] . tel:[phone] [facility], [address], [place], [place], [address] , [place] tel: [phone] [facility] No Information 1 Jonathan Sultana. [address] [place], [place], [address] , [place]. tel: [phone] Referring Provider: Rory Irwin, [address] [place], [address] . tel:[phone] OFFICE AVRFB[facility]EGR[facility]QNA [facility], [address], [place], [place], [address] , [place] tel: [phone] [facility] Office visit (chief complaint)C hronic Conditions (chief complaint) No Information 1 Jonathan Sultana. [address], [place], [address] , [place]. tel: [phone] Referring Provider: Rory Irwin, [address] [place], [address] . tel:[phone] OFFICE QMZUZ-BMK-CXY [facility], [address], [place], [place], [address] , [place] tel: [phone] [facility] Nausea (chief complaint) No Information 1 Jonathan Sultana. [address], [place], [address] , [place]. tel: [phone] Referring Provider: Rory Irwin, [address] [place], [address] . tel:[phone] [facility], [address], [place], [place], [address] , [place] tel: [phone] [facility] No Information 1 Kobi Valadez. [address], [place], [address] . tel: [phone] Referring Provider: Rory Irwin, [address] [place] [address], [address] . tel:[phone] OFFICE BPORJ-ORA-OMH [facility], [address], [place], [place], [address] , [place] tel: [phone] [facility] Diabetes (follow up) (chief complaint)C hronic Conditions (chief complaint) No Information 0 Jonathan Craft [address] [place], [place], [address] , [place]. tel: [phone] Referring Provider: Rory Irwin, [address] [place] [address], [address] . tel:[phone] OFFICE TWAWR-COI-AEI ANDED [facility], [address], [place], [place], [address] , [place] tel: [phone] [facility] Diabetes (follow up) (chief complaint) No Information 0 Rogers Ricardo. [address], [place], [address] , [place]. tel: [phone] Referring Provider: Rory Irwin, [address] [place] [address], [address] . tel:[phone] OFFICE DWZDE-KJO-ACP ANDED [facility], [address], [place], [place], [address] , [place] tel: [phone] [facility] Diabetes (follow up) (chief complaint) No Information - 0 Jonathan Sultana. [address] [place], [place], [address] , [place]. tel: [phone] Referring Provider: Rory Irwin, [address] [place] [address], [address] . tel:[phone] OFFICE SGQRT-RXB-XUQ [facility], [address], [place], [place], [address] , [place] tel: [phone] [facility] Diabetes (follow up) (chief complaint)C hronic Conditions (chief complaint) No Information 0-201 9 Jonathan Sultana. [address], [place], [address] , [place]. tel: [phone] Referring Provider: Rory Irwin, [address] [place] [address], [address] . tel:[phone] [facility], [address], [place], [place], [address] , [place] tel: [phone] [facility] No Information 201 9 Jonathan Sultana. [address] [place] [address] [place], [address] , . tel: [phone] Referring Provider: Rory Irwin, [address] [place] [address], [address] . tel:[phone] [facility] [address], [place], [place], [address] , tel: [phone] [facility] No Information 9 Castillo Kayy. [address] [place], [place], [address] , . tel: [phone] Referring Provider: Rory Irwin, [address] [place] [address], [address] . [phone] [facility] [address], [place], [place], [address] , tel: [phone] [facility] No Information 8 Castillo Kayy. [address] [place] [address], [address] , . tel: [phone] Referring Provider: Rory Irwin, [address] [place] [address], [address] . tel:[phone] [facility] [address], [place], [place], [address] , tel: [phone] [facility] No Information 8 Castillo Kayy. [address] [place], [place], [address] , . tel: [phone] Referring Provider: Rory Irwin, [address] [place] [address], [address] . tel:[phone] Family History Family Member Type Diagnosis Age [...] Source: New Immuniza tion Record Fluzone Quad [id number], spli t virus, 0.5mL dosage administered Source: New Immuniza tion Record Td (adult), adsorbed administered Source: New Immunization Record Payers Payer name Insurance type Covered alliance party ID Authoriza tion(s) [employer] ACCESS CHOICE BL [id number] BC[employer] ACCESS CHOICE BL [id number] BC[employer] ACCESS CHOICE BL [id number] [employer] ACCESS CHOICE BL [id number] [employer] ACCESS CHOICE BL [id number] [employer] ACCESS CHOICE BL [id number] [employer] ACCESS CHOICE BL [id number] BC[employer] ACCESS BL [id number] [employer] INACTIVE OUT OF STATE BL [id number] [employer] INACTIVE OUT OF STATE [id number] Social History Type Description Quantity Date Captured [...] and Metabolism. Dr Linda Hernandez MD. Location: [address] [place] [address] [address], [place] [address]. Evaluation/diagnostic/treatment - Level 3 ordered Referral Ordered: Catalino Lama MD -Surgery (related to Severe obesity) ordered Referral [place]erred To: [place] [address] [address]
[facility] [address] [place], [id number] Ordered: Referrals: Surgery. Catalino Lama MD. Evaluation/diagnostic/treatment [...] is here for hospital f/u. Admitted to [facility] from 03/17-03/18 per pt but records shows pt in the ED from03/17-03/17. Pt seen for n/v likely secondary to gastroparesis. N/v improved.DM Pt has not been checking her BG at home. It was 349 when she was in the hospitalMixed HLNo myalgias Pt's name, Chula is [facility] follow-up DMHighest [address] night. BG [...] a new machine and supplies while at [facility]. Pt started on Semglee during hospitalization [...] choleGB was removed on September 13 a [facility] by Dr. Scar HOGAN w/ pap. Guillermina Solis at [facility] was her gyne.. Gets pap annually. [...] past month. She has been evaluated at [facility]. She was treated with IV fluids [...] weak and complains of dizziness with ambulation. [facility] triage called. Patient is being escorted by [facility] to [facility]. Diabetes (follow up) Chronic Conditions *See Chronic [...] to Mixed hyperlipidemia On Semglee Related to [facility] (current) use of insulin Stable. Pt is [...] o secondary to history of gastroparesis--Refer to [facility] Weight Loss clinic Related to Severe obesity Patient is due for her mammogram Related to Health care maintenance On Semglee Related to [facility] (current) use of insulin Well-controlled-- on rosuvastati [...] current use of insulin Your Diabetes is niikta rly controlled. Your last A1c was 7.8. [...] to clinic in 3 wks Related to [facility] (current) use of insulin --Check labs Related [...] mellitus with other specified complication, unspecified whether shelter insulin use Improved. On Reglan Related to [...] to abnormal HIDA scan-The phone number is [phone] Related to Upper abdominal pain Continue with [...] is an urgent ma [facility]ter.[facility] [place]. Related to Nausea and vomiting, intractability of [...]
[2024-04-30 16:30] LABS: Basophils Percent Auto 0.4 % (0.2-1.2); Eosinophils Absolute Auto 0.1 K/mm3 (0-0.3); Eosinophils Percent Auto 1.6 % (0-4.4); Hematocrit 39.7 % (37.0-47.0); Hemoglobin 13.8 g/dL (12.0-15.0); Immature Granulocyte Absolute 0.02 K/mm3 (0.00-0.031); Immature Granulocyte Percent A 0.3 % (0-0.5); Lymphocytes Absolute Auto 2.93 K/mm3 (0.9-3.2); Lymphocytes Percent Auto 43.5 % (18.3-44.2); Mean Corpuscular HGB Conc 34.8 g/dl (32-36); Mean Corpuscular Hemoglobin 26.9 pg (26-34); Mean Corpuscular Volume 77.4 fl (80-100); Mean Platelet Volume 10.2 fl (7.4-10.4); Monocytes Absolute Auto 0.6 K/mm3 (0.1-0.6); Monocytes Percent Auto 8.6 % (2.6-8.5); Neutrophils Absolute Auto 3.1 K/mm3 (1.3-6.7); Neutrophils Percent Auto 45.6 % (45.5-73.1); Platelet Count Result 309 k/mm3 (150-375); Red Blood Count 5.13 M/mm3 (4.2-5.4); Red Cell Distribution Width 15.2 % (11.5-14.5); White Blood Count 6.7 K/mm3 (4.5-10.0)
[2024-04-30 16:39] LABS: Alanine Aminotransferase 215 U/L (6-35); Albumin Level 4.4 g/dL (3.5-5.1); Alkaline Phosphatase 80 U/L (38-126); Anion Gap 19 mmol/L (4-12); Aspartate Amino Transferase 155 U/L (14-36); Bilirubin,Total 0.7 mg/dL (0.2-1.3); Blood Urea Nitrogen 13 mg/dL (7-17); Calcium 8.4 mg/dL (8.4-10.2); Carbon Dioxide 19 mmol/L (22-30); Chloride 97 mmol/L (98-107); Estimated CRCL calculation 92 ml/min; Estimated Glomerular Filt Rate > 60; Glucose 312 mg/dL (65-110); Lipase 46 U/L (23-300); Potassium 3.7 mmol/L (3.4-5.0); Sodium 135 mmol/L (137-145)
[2024-04-30] MEDS: ONDANSETRON INJ 4 MG/2 ML VIAL IV PUSH (17:25)
[2024-04-30] MEDS: LACTATED RINGERS 1,000 ML 999 ML IV CONT ×2 (17:25→20:20)
[2024-04-30] MEDS: LACTATED RINGERS 500 ML 999 ML IV CONT (17:26)
[2024-04-30] MEDS: DICYCLOMINE HCL 10 MG CAPSULE 20 MG PO (17:26)
[2024-04-30 17:35] LABS: Influenza A QL RT-PCR Negative (Negative); Influenza B QL RT-PCR Negative (Negative); RSV RNA, RT-PCR Negative (Negative); SARS-CoV-2 RNA PCR Negative (Negative)
[2024-04-30 18:55] LABS: Bacteria Urine 2+ /hpf; Non Pathogenic Casts 0-2; RBC Urine >100 /hpf (0-2); Squamous Epithelial Cell Urine Occasional /hpf (Few); WBC Urine 21-50 /hpf (0-3)
[2024-04-30 18:56] LABS: Add Urine Microscopic? YES; Appearance Urine Cloudy (Clear); Bilirubin Urine Negative (Negative); Blood Urine 3+ (Negative); Color Urine Amber (Yellow); Glucose Urine UA 3+ mg/dL (Negative); Ketones Urine 4+ mg/dL (Negative); Leukocyte Esterase Ur Trace LEU/UL (Negative); Nitrate Urine Negative (Negative); Protein Urine 2+ mg/dL (Negative); Specific Grav Ur 1.038 (1.001-1.035)
[2024-04-30 19:54] LABS: Anion Gap 15 mmol/L (4-12); Blood Urea Nitrogen 11 mg/dL (7-17); Calcium 7.9 mg/dL (8.4-10.2); Carbon Dioxide 18 mmol/L (22-30); Chloride 100 mmol/L (98-107); Estimated CRCL calculation 123 ml/min; Estimated Glomerular Filt Rate > 60; Glucose 272 mg/dL (65-110); Potassium 3.7 mmol/L (3.4-5.0); Sodium 133 mmol/L (137-145)
[2024-04-30 20:00] LABS: Beta-Hydroxybutyrate/Acetoacetate 3.16 mmol/L (0.02-0.27)
[2024-04-30] MEDS: METOCLOPRAMIDE HCL INJ 10 MG/2 ML VIAL 5 MG IV PUSH (20:46)
[2024-04-30 21:33] LABS: BEDSIDEPREGUCG Negative (Negative)
[2024-04-30 21:46] LABS: Pregnancy On Board Control Positive; Urine Pregnancy Test Negative
[2024-04-30] MEDS: POTASSIUM CHLORIDE 20 MEQ PACKET (FOR LIQUID) 40 MEQ PO (22:17)
[2024-04-30] MEDS: INSULIN HUMAN REGULAR (*BKC) 100 UNITS/ML 8 UNITS IV PUSH (22:18)
[2024-04-30 23:11] LABS: Base Excess ABG -4.2 mEq/l (+/-2.0); Fractional Inspired Oxygen 21 %; HCO3 ABG 19.3 mEq/l (22.0-26.0); Methemoglobin ABG 0.3 %THb (0-1.5); Oxygen Content ABG 16.3 %vol (16.0-22.0); Oxygen Saturation ABG 96.6 % (95.0-100.0); Oxyhemoglobin 94.6 % THb (90.0-100.0); PCO2 ABG 30.6 mmHg (35.0-45.0); PO2 ABG 84.1 mmHg (80.0-100.0); Reduced Hemoglobin 4.1 %THb (0-5.0); Site Drawn RIGHT BRACHIAL; Total Hemoglobin 12.2 g/dL (12.0-18.0); pH ABG 7.417 (7.350-7.450)
[2024-04-30 23:12] LABS: Device ROOM AIR
== END 2024-04-30 23:44 | disposition home or self-care (01) ==
PROVIDERS: Physician Assistant; Student in an Organized Health Care Education/Training Program; Emergency Provider Emergency Medicine
DX: E11.43 Type 2 diabetes mellitus with diabetic autonomic (poly)neuropathy (principal); K31.84 Gastroparesis; E11.65 Type 2 diabetes mellitus with hyperglycemia; D25.9 Leiomyoma of uterus, unspecified; R11.2 Nausea with vomiting, unspecified; R19.7 Diarrhea, unspecified; Z20.822 Contact with and (suspected) exposure to COVID-19; Z79.84 Long term (current) use of oral hypoglycemic drugs
CPT/HCPCS: 36415; 36600; 74177; 80048; 80053; 81001; 81025; 82010; 82375; 82805; 83050; 83690; 85018; 85025; 87086; 87637; 96361; 96365; 96375; 99284; A9270; J0696; J1815; J2405; J2765; J7120; Q9967